=== PATIENT | male | born 1955 | race Caucasian/White ===

== ENCOUNTER 2016-05-27 10:51 | Emergency (ER) | payer MEDICARE, MEDICAID ==
[2016-05-27 14:09] LABS: Hematocrit 44 % (42-52); Hemoglobin 14.8 g/dl (14.0-18.0); Mean Corpuscular HGB Conc 34 g/dl (31-36); Mean Corpuscular Hemoglobin 32 pg (27-31); Mean Corpuscular Volume 96 fL (80-94); Mean Platelet Volume 8 um3 (7.4-10.4); Red Blood Count 4.56 10^6/ul (4.0-5.4); Red Cell Distribution Width 14 % (10.5-15); White Blood Count 5.8 10^3/ul (3.5-10.8)
[2016-05-27 14:21] LABS: Albumin 3.6 g/dL (3.2-5.2); BUN/Creatinine Ratio 14.6 (8-20); C Reactive Protein 42.15 mg/L (< 5.00); Calcium 8.6 mg/dL (8.6-10.3); EGFR African American 71.9 (>60); EGFR Non-African American 55.9 (>60); Globulin 2.7 g/dL (2-4); Total Bilirubin 0.7 mg/dL (0.2-1.0); Total Protein 6.3 g/dL (6.4-8.9)
[2016-05-27 14:25] LABS: Potassium 3.9 mmol/L (3.5-5.0)
[2016-05-27 15:56] LABS: Urine Bilirubin Negative (Negative); Urine Glucose Negative (Negative); Urine Nitrite Negative (Negative)
[2016-05-27] MEDS ORDERED: Iodixanol* (CONTRAST) 320 MG/ML 100 ML SDV IV ONE (16:07)
[2016-05-27] MEDS ORDERED: NS 0.9% 1000 ML* 1,000 ML IV ONE ×2 (16:43→17:14)
--- NOTE | 2016-05-27 17:15 | RAD ---
Indication: Abdominal pain. CT of the abdomen and pelvis was performed after oral and IV contrast administration. Coronal and sagittal reconstructed images were obtained. Administered 131.9 ml of VISAPAQUE 320 mgi/ml was given intravenously according to hospital protocol. The lung bases demonstrate no pleural fluid, nodules or masses. Heart is of normal size without evidence of pericardial effusion. Liver is normal in size. No focal lesions or intrahepatic ductal dilatation is noted. Gallbladder demonstrates no calcified gallstones. No pericholecystic fluid or wall thickening is identified. Pancreas demonstrates no mass effect or ductal dilatation. The spleen is normal in size. No adrenal lesions are noted. The kidneys demonstrate symmetric nephrograms without focal lesions. CT of the pelvis demonstrates urinary bladder to be partially collapsed. The prostate is enlarged. Seminal vesicles are unremarkable. No hernias are identified. No evidence of bowel obstruction is noted. Contrast is noted in the right colon. IMPRESSION: NO ABNORMAL MASSES OR FLUID COLLECTIONS ARE NOTED. NO EVIDENCE OF BOWEL OBSTRUCTION IS NOTED. NO HERNIAS ARE IDENTIFIED.
[2016-05-27 18:46] VITALS: BP 130/82
--- NOTE | 2016-05-30 09:35 | ED ---
Parminder Cutler Matthew, scribed for Nikhil Henry MD on 05/27/16 at 1354 . GI/ HPI - HPI Summary HPI Summary: A 60 y/o male presents to the ED with vomiting, diarrhea, and nausea since 4 days ago. The patient states that he ate sausage on the evening of 05/24/16 and began vomiting at 23:00, which didn't alleviate until 04:30 the next morning. Associated symptoms include diarrhea, chills, and diffuse abdominal pain. The patient denies blood w/ stool, hematemesis, fever, chest pain, SOB, joint pain, rashes, and urinary symptoms. The patient states that he lost 17 pounds since 4 days ago. PMHx includes Hx of Afib, Diabetes, and HTN. The patient takes baby aspirin daily. - History of Current Complaint Chief Complaint: EDNauseaVomitDiarrh Time Seen by Provider: 05/27/16 13:28 Stated Complaint: VOMITING/DIARRHEA Hx Obtained From: Patient Onset/Duration: Started Days Ago - 4 days ago, Atraumatic, Still Present Timing: Constant Severity: Moderate Current Severity: Moderate Pain Intensity: 0 Location of Pain: Diffuse Associated Signs and Symptoms: Positive: Nausea, Vomiting - since resolved, Weight Loss, Diarrhea, Chills. Negative: Blood-Streaked Stool, Black Tarry Stool, Bright Red Blood w/Stool, Blood w/Stool, Fever, Abdominal Pain, Chest Pain - Allergy/Home Medications Allergies/Adverse Reactions: Allergies Allergy/AdvReac Type Severity Reaction Status Date / Time Celecoxib [From Celebrex] Allergy Intermediate Nausea Verified 05/27/16 10:57 [place] Allergy Intermediate Hives Verified 05/27/16 10:57 Naproxen [From Anaprox] Allergy Intermediate Nausea Verified 05/27/16 10:57 [place] Venom Allergy Mild Swelling Verified 05/27/16 10:57 Promethazine [From Phenergan] AdvReac Severe chills Verified 05/27/16 10:57 Rivaroxaban [From Xarelto] AdvReac Severe GI BLEED Verified 05/27/16 10:57 PMH/Surg Hx/FS Hx/Imm Hx Endocrine/Hematology History: Reports: Hx Diabetes - TYPE II- NO MEDICATION FOR Cardiovascular History: Reports: Hx Coronary Artery Disease, Hx Hypercholesterolemia, Hx Hypertension - ON MEDICATION FOR, Other Cardiovascular Problems/Disorders - ATRIAL FIBRILLATION-TIN DIPPER . DR. PARR Respiratory History: Reports: Hx Asthma - PRN INHALER Denies: Hx Chronic Obstructive Pulmonary Disease (COPD) GI History: Reports: Hx Gastroesophageal Reflux Disease - ON MEDICATION FOR Denies: Other GI Disorders History: Reports: Hx Benign Prostatic Hyperplasia, Hx Chronic Renal Failure, Hx Kidney Stones - LEFT 04/2015 Musculoskeletal History: Reports: Hx Arthritis - LOWER BACK, HIPS, HANDS, KNEES Denies: Other Musculoskeletal History Sensory History: Reports: Hx Cataracts - SKY, Hx Contacts or Glasses - GLASSES Denies: Hx Hearing Aid Opthamlomology History: Reports: Hx Cataracts - SKY, Hx Contacts or Glasses - GLASSES Neurological History: Reports: Hx Migraine - A CHILD, Other Neuro Impairments /Disorders - PERIPHERAL NEUROPATHY FEET AND HANDS Psychiatric History: Reports: Hx Anxiety, Hx Depression - HX OF STATES UNDER CONTROL, Hx Bipolar Disorder - Surgical History Surgery Procedure, Year, and Place: R inguinal hernia repair. cataract surgery when patient A YOUNG CHILD. KIDNEY STONE BLASTING[place]04/2015[place] [place] UMBILICAL HERNIA [id number]/2015 Hx Anesthesia Reactions: No Infectious Disease History: No Infectious Disease History: Denies: Traveled Outside the [place] in Last 30 Days - Family History Family History: No FHx of malignant hyperthermia. No FHx of anesthesia reaction - Social History Alcohol Use: None Substance Use Type: Reports: None Smoking Status (MU): Former Smoker Type: Cigarettes Amount Used/How Often: STATES ONLY SMOKED FOR ABOUT 1 MONTH Length of Time of Smoking/Using Tobacco: 1 MONTH Have You Smoked in the Last Year: No Review of Systems Constitutional: Other - weight loss Positive: Chills. Negative: Fever Eyes: Negative ENT: Negative Cardiovascular: Negative Negative: Chest Pain Respiratory: Negative Negative: Shortness Of Breath Positive: Abdominal Pain - mild diffuse , Vomiting, Diarrhea, Nausea Genitourinary: Negative Positive: no symptoms reported Musculoskeletal: Negative Skin: Negative Neurological: Negative Psychological: Normal All Other Systems Reviewed And Are Negative: Yes Physical Exam - Summary Physical Exam Summary: GENERAL: Awake, alert, oriented, no acute distress, very pleasant HEENT: Head is normocephalic, atraumatic, anicteric sclera, pink conjunctiva, mucous membranes moist, no erythema, no discharge, no lesions, neck is supple, trachea is midline, no JVD CARDIAC: Regular rate and rhythm, S1, S2, no rub, no murmur, no gallop, 2+ radial and pedal pulses bilaterally RESPIRATORY: Clear to auscultation bilaterally with no rales, rhonchi, or wheezes, non-tender ABDOMEN: Bowel sounds positive, no bruit, soft, diffuse abdominal tenderness, negative Psoas sign, 2+ femoral pulses, no CVA tenderness EXTREMITIES: No edema, warm, dry, moving all extremities in a grossly normal manner NEUROLOGICAL: Mood is appropriate, moving all extremities in a grossly normal manner Triage Information Reviewed: Yes Vital Signs On Initial Exam: Initial Vitals Temp Pulse Resp BP Pulse Ox 96.5 F 100 16 108/59 99 05/27/16 10:54 05/27/16 10:54 05/27/16 10:54 05/27/16 10:54 05/27/16 10:54 Vital Signs Reviewed: Yes Diagnostics - Vital Signs Vital Signs Temp Pulse Resp BP Pulse Ox 05/27/16 10:54 96.5 F 100 16 108/59 99 - Laboratory Lab Results: Lab Results 05/27/16 05/27/16 05/27/16 Range/Units 13:50 13:50 13:50 WBC 5.8 (3.5-10.8) 10^3/ul RBC 4.56 (4.0-5.4) 10^6/ul Hgb 14.8 (14.0-18.0) g/dl Hct 44 (42-52) % MCV 96 H (80-94) fL MCH 32 H (27-31) pg MCHC 34 (31-36) g/dl RDW 14 (10.5-15) % Plt Count 186 (150-450) 10^3/ul MPV 8 (7.4-10.4) um3 Neut % (Auto) 62.6 (38-83) % Lymph % (Auto) 22.6 L (25-47) % Walton % (Auto) 13.7 H (1-9) % Eos % (Auto) 0.9 (0-6) % Baso % (Auto) 0.2 (0-2) % Absolute Neuts (auto) 3.6 (1.5-7.7) 10^3/ul Absolute Lymphs (auto) 1.3 (1.0-4.8) 10^3/ul Absolute Monos (auto) 0.8 (0-0.8) 10^3/ul Absolute Eos (auto) 0.1 (0-0.6) 10^3/ul Absolute Basos (auto) 0 (0-0.2) 10^3/ul Absolute Nucleated RBC 0.01 10^3/ul Nucleated RBC % 0.1 Sodium 138 (133-145) mmol/L Potassium 3.9 (3.5-5.0) mmol/L Chloride 107 (101-111) mmol/L Carbon Dioxide 25 (22-32) mmol/L Anion Gap 6 (2-11) mmol/L BUN 19 (6-24) mg/dL Creatinine 1.30 H (0.67-1.17) mg/dL Est GFR ( Amer) 71.9 (>60) Est GFR (Non-Af Amer) 55.9 (>60) BUN/Creatinine Ratio 14.6 (8-20) Glucose 114 H (70-100) mg/dL Lactic Acid 1.1 (0.5-2.0) mmol/L Calcium 8.6 (8.6-10.3) mg/dL Total Bilirubin 0.70 (0.2-1.0) mg/dL AST 37 (13-39) U/L ALT 31 (7-52) U/L Alkaline Phosphatase 48 (34-104) U/L C-Reactive Protein 42.15 H (< 5.00) mg/L Total Protein 6.3 L (6.4-8.9) g/dL Albumin 3.6 (3.2-5.2) g/dL Globulin 2.7 (2-4) g/dL Albumin/Globulin Ratio 1.3 (1-3) Lipase 11 (11.0-82.0) U/L Urine Color Urine Appearance Urine pH (5-9) Ur Specific [place] (1.010-1.030) Urine Protein (Negative) Urine Ketones (Negative) Urine Blood (Negative) Urine Nitrate (Negative) Urine Bilirubin (Negative) Urine Urobilinogen (Negative) Ur Leukocyte Esterase (Negative) Urine Glucose (Negative) 05/27/16 Range/Units 15:41 WBC (3.5-10.8) 10^3/ul RBC (4.0-5.4) 10^6/ul Hgb (14.0-18.0) g/dl Hct (42-52) % MCV (80-94) fL MCH (27-31) pg MCHC (31-36) g/dl RDW (10.5-15) % Plt Count (150-450) 10^3/ul MPV (7.4-10.4) um3 Neut % (Auto) (38-83) % Lymph % (Auto) (25-47) % Walton % (Auto) (1-9) % Eos % (Auto) (0-6) % Baso % (Auto) (0-2) % Absolute Neuts (auto) (1.5-7.7) 10^3/ul Absolute Lymphs (auto) (1.0-4.8) 10^3/ul Absolute Monos (auto) (0-0.8) 10^3/ul Absolute Eos (auto) (0-0.6) 10^3/ul Absolute Basos (auto) (0-0.2) 10^3/ul Absolute Nucleated RBC 10^3/ul Nucleated RBC % Sodium (133-145) mmol/L Potassium (3.5-5.0) mmol/L Chloride (101-111) mmol/L Carbon Dioxide (22-32) mmol/L Anion Gap (2-11) mmol/L BUN (6-24) mg/dL Creatinine (0.67-1.17) mg/dL Est GFR ( Amer) (>60) Est GFR (Non-Af Amer) (>60) BUN/Creatinine Ratio (8-20) Glucose (70-100) mg/dL Lactic Acid (0.5-2.0) mmol/L Calcium (8.6-10.3) mg/dL Total Bilirubin (0.2-1.0) mg/dL AST (13-39) U/L ALT (7-52) U/L Alkaline Phosphatase (34-104) U/L C-Reactive Protein (< 5.00) mg/L Total Protein (6.4-8.9) g/dL Albumin (3.2-5.2) g/dL Globulin (2-4) g/dL Albumin/Globulin Ratio (1-3) Lipase (11.0-82.0) U/L Urine Color Yellow Urine Appearance Clear Urine pH 5.0 (5-9) Ur Specific [place] 1.023 (1.010-1.030) Urine Protein Negative (Negative) Urine Ketones Negative (Negative) Urine Blood Negative (Negative) Urine Nitrate Negative (Negative) Urine Bilirubin Negative (Negative) Urine Urobilinogen Negative (Negative) Ur Leukocyte Esterase Negative (Negative) Urine Glucose Negative (Negative) Result Diagrams: 05/27/16 13:50 05/27/16 13:50 Lab Statement: Any lab studies that have been ordered have been reviewed, and results considered in the medical decision making process. - CT A/P CT Interpretation: No Acute Changes - IMPRESSION: NO ABNORMAL MASSES OR FLUID COLLECTIONS ARE NOTED. NO EVIDENCE OF BOWEL OBSTRUCTION IS NOTED. NO HERNIAS ARE IDENTIFIED. CT Interpretation Completed By: Radiologist JULOI C Course/Dx - Diagnoses Provider Diagnoses: Vomiting and diarrhea Discharge - Discharge Plan Condition: Stable Disposition: HOME Prescriptions: Ondansetron ODT TAB* [Zofran Odt TAB*] 4 mg PO Q8H PRN #10 tab.odt PRN Reason: Nausea Patient Education Materials: Acute Diarrhea (ED), Acute Nausea and Vomiting (ED ) Referrals: Kin Steele MD [Primary Care Provider] - 2 Days Additional Instructions: Please follow-up with your primary care physician in two days. PLEASE RETURN TO THE EMERGENCY DEPARTMENT FOR NAUSEA, VOMITING, FEVER, PHOTOPHOBIA, CHEST PAIN, OR IF SYMPTOMS WORSEN. The documentation as recorded by the Parminder willis Matthew accurately reflects the service I personally performed and the decisions made by , Nikhil Henry MD.
== END 2016-05-27 18:45 | disposition home or self-care (01) ==
LOC: ED 10:51
DX: R19.7 Diarrhea, unspecified (principal); R11.2 Nausea with vomiting, unspecified; Z87.891 Personal history of nicotine dependence
CPT/HCPCS: 36415; 74177; 80053; 81003; 83605; 83690; 85025; 86140; 96360; 99282; Q9967

== ENCOUNTER 2017-06-11 07:25 | Emergency (ER) | payer MEDICARE, MEDICAID ==
[2017-06-11 09:20] VITALS: BP 117/79
--- NOTE | 2017-06-11 17:51 | ED ---
Cherry Cutler Edward, scribed for Shen Osborne MD on 06/11/17 at 0747 . Throat Pain/Nasal Congestion - HPI Summary HPI Summary: 61 y/o male presents to the ED c/o sore throat at around 06:30 this morning. Pain is aggravated with swallowing. Associated sx: nasal congestion. Denies fevers. - History of Current Complaint Chief Complaint: EDThroatPain Time Seen by Provider: 06/11/17 07:41 Hx Obtained From: Patient Onset/Duration: Lasting Hours Associated Signs And Symptoms: Positive: Nasal Discharge - Allergies/Home Medications Allergies/Adverse Reactions: Allergies Allergy/AdvReac Type Severity Reaction Status Date / Time Celecoxib [From Celebrex] Allergy Intermediate Nausea Verified 05/27/16 10:57 [place] Allergy Intermediate Hives Verified 05/27/16 10:57 Naproxen [From Anaprox] Allergy Intermediate Nausea Verified 05/27/16 10:57 Bee Venom Allergy Mild Swelling Verified 05/27/16 10:57 Promethazine [From Phenergan] AdvReac Severe chills Verified 05/27/16 10:57 Rivaroxaban [From Xarelto] AdvReac Severe GI BLEED Verified 05/27/16 10:57 PMH/Surg Hx/FS Hx/Imm Hx Previously Healthy: No Endocrine/Hematology History: Reports: Hx Diabetes - TYPE II- NO MEDICATION FOR Cardiovascular History: Reports: Hx Coronary Artery Disease, Hx Hypercholesterolemia, Hx Hypertension - ON MEDICATION FOR, Other Cardiovascular Problems/Disorders - ATRIAL FIBRILLATION-[employer]T SU[employer]ANT . DR. PARR Respiratory History: Reports: Hx Asthma - PRN INHALER Denies: Hx Chronic Obstructive Pulmonary Disease (COPD) GI History: Reports: Hx Gastroesophageal Reflux Disease - ON MEDICATION FOR Denies: Other GI Disorders History: Reports: Hx Benign Prostatic Hyperplasia, Hx Chronic Renal Failure, Hx Kidney Stones - LEFT 04/2015 Musculoskeletal History: Reports: Hx Arthritis - LOWER BACK, HIPS, HANDS, KNEES Denies: Other Musculoskeletal History Sensory History: Reports: Hx Cataracts - SKY, Hx Contacts or Glasses - GLASSES Denies: Hx Hearing Aid Opthamlomology History: Reports: Hx Cataracts - SKY, Hx Contacts or Glasses - GLASSES Neurological History: Reports: Hx Migraine - A CHILD, Other Neuro Impairments /Disorders - PERIPHERAL NEUROPATHY FEET AND HANDS Psychiatric History: Reports: Hx Anxiety, Hx Depression - HX OF STATES UNDER CONTROL, Hx Bipolar Disorder - Surgical History Surgery Procedure, Year, and Place: R inguinal hernia repair. cataract surgery when patient A YOUNG CHILD. KIDNEY STONE BLASTING-04/2015[place] [place] UMBILICAL HERNIA [id number]-07/2015 Hx Anesthesia Reactions: No Infectious Disease History: No Infectious Disease History: Denies: Traveled Outside the [place] in Last 30 Days - Family History Family History: No FHx of malignant hyperthermia. No FHx of anesthesia reaction - Social History Alcohol Use: None Substance Use Type: Reports: None Smoking Status (MU): Former Smoker Type: Cigarettes Amount Used/How Often: STATES ONLY SMOKED FOR ABOUT 1 MONTH Length of Time of Smoking/Using Tobacco: 1 MONTH Have You Smoked in the Last Year: No Review of Systems Constitutional: Negative Negative: Fever Eyes: Negative Positive: Sore Throat, Nasal Discharge - nasal congestion Cardiovascular: Negative Respiratory: Negative Gastrointestinal: Negative Genitourinary: Negative Musculoskeletal: Negative Skin: Negative Neurological: Negative Psychological: Normal All Other Systems Reviewed And Are Negative: Yes Physical Exam - Summary Physical Exam Summary: VITAL SIGNS: Reviewed. GENERAL: Patient is a well-developed and nourished male who is lying comfortable in the stretcher. Patient is not in any acute respiratory distress. HEAD AND FACE: No signs of trauma. No ecchymosis, hematomas or skull depressions. No sinus tenderness. EYES: PERRLA, EOMI x 2, No injected conjunctiva, no nystagmus. EARS: Hearing grossly intact. Ear canals and tympanic membranes are within normal limits. MOUTH: Erythema in the throat without white plaques. NECK: Supple, trachea is midline, no adenopathy, no JVD, no carotid bruit, no c- spine tenderness, neck with full ROM. CHEST: Symmetric, no tenderness at palpation LUNGS: Clear to auscultation bilaterally. No wheezing or crackles. CVS: Regular rate and rhythm, S1 and S2 present, no murmurs or gallops appreciated. ABDOMEN: Soft, non-tender. No signs of distention. No rebound no guarding, and no masses palpated. Bowel sounds are normal. EXTREMITIES: FROM in all major joints, no edema, no cyanosis or clubbing. NEURO: Alert and oriented x 3. No acute neurological deficits. Speech is normal and follows commands. SKIN: Dry and warm Triage Information Reviewed: Yes Vital Signs On Initial Exam: Initial Vitals Temp Pulse Resp BP Pulse Ox 97.8 F 95 16 126/78 97 06/11/17 07:27 06/11/17 07:27 06/11/17 07:27 06/11/17 07:27 06/11/17 07:27 Vital Signs Reviewed: Yes Diagnostics - Vital Signs Vital Signs Temp Pulse Resp BP Pulse Ox 06/11/17 07:27 97.8 F 95 16 126/78 97 - Laboratory Lab Results: Lab Results 06/11/17 06/11/17 Range/Units 08:01 08:13 Influenza A (Rapid) Negative (Negative) Influenza B (Rapid) Negative (Negative) Group A Strep Rapid Negative (Negative) Lab Statement: Any lab studies that have been ordered have been reviewed, and results considered in the medical decision making process. EENT Course/Dx - Course Assessment/Plan: 61 y/o male presents to the ED c/o sore throat at around 06:30 this morning. Pain is aggravated with swallowing. Associated sx: nasal congestion. Denies fevers. Pt is lying comfortable in the stretcher with no acute distress. The pt has no pharyngeal exudates or retropharyngeal absceses. Rapid strep negative; Influenza a and b negative. Therefore I believe the pts symptoms are due to Viral pharyngitis. The pt is swallowing PO without n/v. The pt will be d/c home with f/u with pcp. The pt is hemodyncamically stable, A& Ox3. I discussed all the findings and test results with the patient. Patient was instructed to return to the emergency room immediately if any of the symptoms return or worsens. Plan of care was discussed with the patient and understands and agrees. All questions were answered at patient satisfaction. There were no further complaints or concerns. Lung exam before discharge: CTA B /L. Good air exchange. No wheezing or crackles heard. CVS: S1 and S2 present. No murmurs appreciated. Patient is alert and oriented x 3. Patient is hemodynamically stable. Patient will be discharged home with follow up PCP in the next 2-3 days - Differential Diagnoses Differential Diagnoses: Sinusitis, Tonsilitis, URI/Bronchitis - Diagnoses Provider Diagnoses: Viral pharyngitis Discharge - Discharge Plan Condition: Stable Disposition: HOME Patient Education Materials: Pharyngitis (ED) Referrals: Kin Steele MD [Primary Care Provider] - 4 Days (PLEASE F/U IN 3-5 DAYS NEEDED) Additional Instructions: PLEASE RETURN TO THE ED FOR RETURN OR WORSENING OF SYMPTOMS The documentation as recorded by the Cherry willis Edward accurately reflects the service I personally performed and the decisions made by me, Shen Osborne MD.
== END 2017-06-11 09:19 | disposition home or self-care (01) ==
LOC: ED 07:25
DX: J02.9 Acute pharyngitis, unspecified (principal); F17.210 Nicotine dependence, cigarettes, uncomplicated
CPT/HCPCS: 87502; 87651; 99282

== ENCOUNTER 2017-06-25 17:07 | Emergency (ER) | payer MEDICARE, MEDICAID ==
[2017-06-25] MEDS ORDERED: Ondansetron INJ* 2 MG/ML VIAL IV ONE (17:30)
[2017-06-25] MEDS ORDERED: NS 0.9% 1000 ML* 1,000 ML IV ONE (17:30)
[2017-06-25] MEDS ORDERED: Acetaminophen TAB* 325 MG PO ONE (17:32)
[2017-06-25 18:28] LABS: ABS Basophils 0 10^3/ul (0-0.2); ABS Eosinophils 0.1 10^3/ul (0-0.6); ABS Lymphocytes 0.4 10^3/ul (1.0-4.8); ABS Monocytes 0.9 10^3/ul (0-0.8); ABS Neutrophils 5.6 10^3/ul (1.5-7.7); ABS Nucleated RBC 0 10^3/ul; Eosinophil % 1.1 % (0-6); Hematocrit 40 % (42-52); Hemoglobin 13.8 g/dl (14.0-18.0); Lymphocyte % 5.9 % (25-47); Mean Corpuscular HGB Conc 35 g/dl (31-36); Mean Corpuscular Hemoglobin 32 pg (27-31); Mean Corpuscular Volume 94 fL (80-94); Mean Platelet Volume 7 um3 (7.4-10.4); Nucleated Red Blood Cells % 0; Platelet Count 194 10^3/ul (150-450); Red Blood Count 4.27 10^6/ul (4.0-5.4); Red Cell Distribution Width 14 % (10.5-15)
[2017-06-25 18:32] LABS: Urine Appearance Clear; Urine Blood 2+ (Negative); Urine Color Yellow; Urine Ketones Negative (Negative); Urine Protein Negative (Negative); Urine Specific Gravity 1.016 (1.010-1.030); Urine Urobilinogen Negative (Negative)
[2017-06-25 18:41] LABS: EGFR Non-African American 66.9 (>60)
--- NOTE | 2017-06-25 18:43 | RAD ---
Indication: Cough and fever. Asthma. Comparison: May 27, 2016 CT abdomen Technique: Upright AP 1827 hours Report: Bilateral first costochondral calcifications noted. No focal pulmonary lesion, compelling alveolar consolidation, pleural effusion, pneumothorax. The heart, pulmonary vasculature, and mediastinal contours are unremarkable. IMPRESSION: No evidence for pneumonia. No evidence for acute intrathoracic disease.
[2017-06-25] MEDS ORDERED: Oseltamivir CAP* 75 MG CAP PO ONE (18:47)
[2017-06-25 19:46] VITALS: BP 135/84
--- NOTE | 2017-06-26 07:58 | ED ---
Sonali Cutler Thomas, scribed for Shen Osborne MD on 06/25/17 at 1733 . Influenza-Like Illness - HPI Summary HPI Summary: The patient is a 71 year old male presenting with fever, cough, sore throat, and vomiting for the last two days. The cough has green and yellow productions. He denies body aches, chest pain, abdominal pain, and diarrhea. - History of Current Complaint Chief Complaint: EDGeneral Time Seen by Provider: 06/25/17 17:22 Hx Obtained From: Patient Onset/Duration: Lasting Days - 2, Still Present Severity: Severe Associated Signs & Symptoms: Fever, Cough, Sore Throat, Vomiting Related Hx: Possible Flu/Infectious Exposure - Allergy/Home Medications Allergies/Adverse Reactions: Allergies Allergy/AdvReac Type Severity Reaction Status Date / Time MS Celecoxib [From Celebrex] Allergy Intermediate Nausea Verified 05/27/16 10:57 MS Dunlevy [Dunlevy] Allergy Intermediate Hives Verified 05/27/16 10:57 MS Naproxen [From Anaprox] Allergy Intermediate Nausea Verified 05/27/16 10:57 MS Bee Venom [Bee Venom] Allergy Mild Swelling Verified 05/27/16 10:57 MS Promethazine AdvReac Severe chills Verified 05/27/16 10:57 [From Phenergan] MS Rivaroxaban [From Xarelto] AdvReac Severe GI BLEED Verified 05/27/16 10:57 PMH/Surg Hx/FS Hx/Imm Hx Endocrine/Hematology History: Reports: Hx Diabetes - TYPE II- NO MEDICATION FOR Cardiovascular History: Reports: Hx Coronary Artery Disease, Hx Hypercholesterolemia, Hx Hypertension - ON MEDICATION FOR, Other Cardiovascular Problems/Disorders - 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 DR. PARR Respiratory History: Reports: Hx Asthma - PRN INHALER Denies: Hx Chronic Obstructive Pulmonary Disease (COPD) GI History: Reports: Hx Gastroesophageal Reflux Disease - ON MEDICATION FOR Denies: Other GI Disorders History: Reports: Hx Benign Prostatic Hyperplasia, Hx Chronic Renal Failure, Hx Kidney Stones - LEFT 04/2015 Musculoskeletal History: Reports: Hx Arthritis - LOWER BACK, HIPS, HANDS, KNEES Denies: Other Musculoskeletal History Sensory History: Reports: Hx Cataracts - SKY, Hx Contacts or Glasses - GLASSES Denies: Hx Hearing Aid Opthamlomology History: Reports: Hx Cataracts - SKY, Hx Contacts or Glasses - GLASSES Neurological History: Reports: Hx Migraine - A CHILD, Other Neuro Impairments /Disorders - PERIPHERAL NEUROPATHY FEET AND HANDS Psychiatric History: Reports: Hx Anxiety, Hx Depression - HX OF STATES UNDER CONTROL, Hx Bipolar Disorder - Surgical History Surgery Procedure, Year, and Place: R inguinal hernia repair. cataract surgery when patient A YOUNG CHILD. KIDNEY STONE BLASTING-04/2015-[facility] [place]. UMBILICAL HERNIA [id number]-89/2015 Hx Anesthesia Reactions: No Infectious Disease History: No Infectious Disease History: Denies: Traveled Outside the US in Last 30 Days - Family History Family History: No FHx of malignant hyperthermia. No FHx of anesthesia reaction - Social History Alcohol Use: None Substance Use Type: Reports: None Smoking Status (MU): Former Smoker Type: Cigarettes Amount Used/How Often: STATES ONLY SMOKED FOR ABOUT 1 MONTH Length of Time of Smoking/Using Tobacco: 1 MONTH Have You Smoked in the Last Year: No Review of Systems Positive: Fever Positive: Sore Throat Negative: Chest Pain Positive: Cough Positive: Vomiting. Negative: Abdominal Pain, Diarrhea Negative: Myalgia All Other Systems Reviewed And Are Negative: Yes Physical Exam - Summary Physical Exam Summary: VITAL SIGNS: Reviewed. He is febrile and tachycardic. GENERAL: Patient is a well-developed and nourished male who is lying comfortable in the stretcher. Patient is not in any acute respiratory distress. HEAD AND FACE: No signs of trauma. No ecchymosis, hematomas or skull depressions. No sinus tenderness. EYES: PERRLA, EOMI x 2, No injected conjunctiva, no nystagmus. EARS: Hearing grossly intact. Ear canals and tympanic membranes are within normal limits. MOUTH: Oropharynx within normal limits. NECK: Supple, trachea is midline, no adenopathy, no JVD, no carotid bruit, no c- spine tenderness, neck with full ROM. CHEST: Symmetric, no tenderness at palpation LUNGS: He has some crackles in the bases of the lungs. CVS: Tachycardia, regular rhythm. S1 and S2 present, no murmurs or gallops appreciated. ABDOMEN: Soft, non-tender. No signs of distention. No rebound no guarding, and no masses palpated. Bowel sounds are normal. EXTREMITIES: FROM in all major joints, no edema, no cyanosis or clubbing. NEURO: Alert and oriented x 3. No acute neurological deficits. Speech is normal and follows commands. SKIN: Dry and warm Triage Information Reviewed: Yes Vital Signs On Initial Exam: Initial Vitals Temp Pulse Resp BP Pulse Ox 102.9 F 107 24 161/84 97 06/25/17 17:16 06/25/17 17:16 06/25/17 17:16 06/25/17 17:16 06/25/17 17:16 Vital Signs Reviewed: Yes Diagnostics - Vital Signs Vital Signs Temp Pulse Resp BP Pulse Ox 06/25/17 17:16 102.9 F 107 24 161/84 97 - Laboratory Lab Results: Lab Results 06/25/17 06/25/17 06/25/17 Range/Units 17:50 18:04 18:04 WBC 7.0 (3.5-10.8) 10^3/ul RBC 4.27 (4.0-5.4) 10^6/ul Hgb 13.8 L (14.0-18.0) g/dl Hct 40 L (42-52) % MCV 94 (80-94) fL MCH 32 H (27-31) pg MCHC 35 (31-36) g/dl RDW 14 (10.5-15) % Plt Count 194 (150-450) 10^3/ul MPV 7 L (7.4-10.4) um3 Neut % (Auto) 80.2 (38-83) % Lymph % (Auto) 5.9 L (25-47) % Valley % (Auto) 12.5 H (1-9) % Eos % (Auto) 1.1 (0-6) % Baso % (Auto) 0.3 (0-2) % Absolute Neuts (auto) 5.6 (1.5-7.7) 10^3/ul Absolute Lymphs (auto) 0.4 L (1.0-4.8) 10^3/ul Absolute Monos (auto) 0.9 H (0-0.8) 10^3/ul Absolute Eos (auto) 0.1 (0-0.6) 10^3/ul Absolute Basos (auto) 0 (0-0.2) 10^3/ul Absolute Nucleated RBC 0 10^3/ul Nucleated RBC % 0 Sodium 135 (133-145) mmol/L Potassium 3.5 (3.5-5.0) mmol/L Chloride 101 (101-111) mmol/L Carbon Dioxide 25 (22-32) mmol/L Anion Gap 9 (2-11) mmol/L BUN 15 (6-24) mg/dL Creatinine 1.11 (0.67-1.17) mg/dL Est GFR ( Amer) 86.0 (>60) Est GFR (Non-Af Amer) 66.9 (>60) BUN/Creatinine Ratio 13.5 (8-20) Glucose 143 H (70-100) mg/dL Lactic Acid (0.5-2.0) mmol/L Calcium 8.4 L (8.6-10.3) mg/dL Total Bilirubin 0.50 (0.2-1.0) mg/dL AST 24 (13-39) U/L ALT 19 (7-52) U/L Alkaline Phosphatase 63 (34-104) U/L Total Creatine Kinase 86 (10-223) U/L Troponin I 0.00 (<0.04) ng/mL C-Reactive Protein 21.35 H (< 5.00) mg/L B-Natriuretic Peptide ( - 100) pg/mL Total Protein 6.6 (6.4-8.9) g/dL Albumin 4.0 (3.2-5.2) g/dL Globulin 2.6 (2-4) g/dL Albumin/Globulin Ratio 1.5 (1-3) Urine Color Urine Appearance Urine pH (5-9) Ur Specific [place] (1.010-1.030) Urine Protein (Negative) Urine Ketones (Negative) Urine Blood (Negative) Urine Nitrate (Negative) Urine Bilirubin (Negative) Urine Urobilinogen (Negative) Ur Leukocyte Esterase (Negative) Urine WBC (Auto) (Absent) Urine RBC (Auto) (Absent) Ur Squamous Epith Cells (Absent) Urine Bacteria (Absent) Urine Glucose (Negative) Influenza A (Rapid) Positive H (Negative) Influenza B (Rapid) Negative (Negative) 06/25/17 06/25/17 06/25/17 Range/Units 18:04 18:04 18:15 WBC (3.5-10.8) 10^3/ul RBC (4.0-5.4) 10^6/ul Hgb (14.0-18.0) g/dl Hct (42-52) % MCV (80-94) fL MCH (27-31) pg MCHC (31-36) g/dl RDW (10.5-15) % Plt Count (150-450) 10^3/ul MPV (7.4-10.4) um3 Neut % (Auto) (38-83) % Lymph % (Auto) (25-47) % Valley % (Auto) (1-9) % Eos % (Auto) (0-6) % Baso % (Auto) (0-2) % Absolute Neuts (auto) (1.5-7.7) 10^3/ul Absolute Lymphs (auto) (1.0-4.8) 10^3/ul Absolute Monos (auto) (0-0.8) 10^3/ul Absolute Eos (auto) (0-0.6) 10^3/ul Absolute Basos (auto) (0-0.2) 10^3/ul Absolute Nucleated RBC 10^3/ul Nucleated RBC % Sodium (133-145) mmol/L Potassium (3.5-5.0) mmol/L Chloride (101-111) mmol/L Carbon Dioxide (22-32) mmol/L Anion Gap (2-11) mmol/L BUN (6-24) mg/dL Creatinine (0.67-1.17) mg/dL Est GFR ( Amer) (>60) Est GFR (Non-Af Amer) (>60) BUN/Creatinine Ratio (8-20) Glucose (70-100) mg/dL Lactic Acid 2.5 H* (0.5-2.0) mmol/L Calcium (8.6-10.3) mg/dL Total Bilirubin (0.2-1.0) mg/dL AST (13-39) U/L ALT (7-52) U/L Alkaline Phosphatase (34-104) U/L Total Creatine Kinase (10-223) U/L Troponin I (<0.04) ng/mL C-Reactive Protein (< 5.00) mg/L B-Natriuretic Peptide 72 ( - 100) pg/mL Total Protein (6.4-8.9) g/dL Albumin (3.2-5.2) g/dL Globulin (2-4) g/dL Albumin/Globulin Ratio (1-3) Urine Color Yellow Urine Appearance Clear Urine pH 5.0 (5-9) Ur Specific [place] 1.016 (1.010-1.030) Urine Protein Negative (Negative) Urine Ketones Negative (Negative) Urine Blood 2+ H (Negative) Urine Nitrate Negative (Negative) Urine Bilirubin Negative (Negative) Urine Urobilinogen Negative (Negative) Ur Leukocyte Esterase Negative (Negative) Urine WBC (Auto) Trace(0-5/hpf) (Absent) Urine RBC (Auto) 1+(3-5/hpf) H (Absent) Ur Squamous Epith Cells Present H (Absent) Urine Bacteria Absent (Absent) Urine Glucose Negative (Negative) Influenza A (Rapid) (Negative) Influenza B (Rapid) (Negative) Result Diagrams: 06/25/17 18:04 06/25/17 18:04 Lab Statement: Any lab studies that have been ordered have been reviewed, and results considered in the medical decision making process. - Radiology CXR Xray Interpretation: No Acute Changes - No evidence for pneumonia. No evidence for acute intrathoracic disease. Dr. Osborne has reviewed this report. Radiology Interpretation Completed By: Radiologist - EKG 17:38 Cardiac Rate: Tachycardia EKG Rhythm: Atrial Fibrillation - at 101 BPM EKG Interpretation: Similar to previous EKG on 05/30/14. Flu Symptom Course/Dx - Course Assessment/Plan: The patient is a 71 year old male presenting with fever, cough , sore throat, and vomiting for the last two days. The cough has green and yellow productions. He denies body aches, chest pain, abdominal pain, and diarrhea. The test results are without significant abnormalities except a positive influenza. Initially, the patient was tachycardic and febrile, for which he was given IV fluids and Tylenol. The patient was also given Tamiflu. At this point, the patients heart rate has decreased to 92 BPM and blood pressure has decreased to 125/72. The patient is feeling better; therefore he will be discharged home to follow up with primary care. The patient was given instructions to return to the emergency department if symptoms worsen. The patient is hemodynamically stable and alert and oriented x3. - Diagnoses Differential Diagnosis/HQI/PQRI: Positive: Bronchitis, Influenza, Pneumonia, Upper Respiratory Infection Provider Diagnoses: Influenza Discharge - Discharge Plan Condition: Stable Disposition: HOME Prescriptions: Oseltamivir CAP* [Tamiflu CAP*] 75 mg PO BID #10 cap Patient Education Materials: Influenza (ED) Referrals: Kin Steele MD [Primary Care Provider] - 3 Days Additional Instructions: Follow up with your primary care provider in three days. Return to the emergency department for any new or worsening symptoms. The documentation as recorded by the Sonali willis Thomas accurately reflects the service I personally performed and the decisions made by me, Shen Osborne MD.
== END 2017-06-25 19:47 | disposition home or self-care (01) ==
LOC: ED 17:07
DX: J11.1 Influenza due to unidentified influenza virus with other respiratory manifestations (principal); R50.9 Fever, unspecified; R05 Cough; R11.10 Vomiting, unspecified; I25.10 Atherosclerotic heart disease of native coronary artery without angina pectoris; Z87.19 Personal history of other diseases of the digestive system; Z86.79 Personal history of other diseases of the circulatory system; R07.9 Chest pain, unspecified; Z87.891 Personal history of nicotine dependence
CPT/HCPCS: 36415; 71045; 80053; 81003; 81015; 82550; 83605; 83880; 84484; 85025; 86140; 87040; 87502; 93005; 96374; 96375; 99283; A9270-GY; J2405

== ENCOUNTER 2017-07-16 08:41 | Emergency (ER) | payer MEDICARE, MEDICAID ==
[2017-07-16 08:48] VITALS: BP 122/79
--- NOTE | 2017-07-16 10:06 | RAD ---
HISTORY: Right knee pain injury COMPARISONS: May 10, 2012 VIEWS: 2, Frontal and lateral views of the left knee FINDINGS: BONE DENSITY: Normal. BONES: There is no displaced fracture. JOINTS: There is mild to moderate tricompartmental osteoarthritis.There is no suprapatellar joint effusion or lipohemarthrosis. ALIGNMENT: There is no dislocation. SOFT TISSUES: Unremarkable. OTHER FINDINGS: None. IMPRESSION: NO ACUTE OSSEOUS INJURY. IF SYMPTOMS PERSIST, RECOMMEND REPEAT IMAGING.
--- NOTE | 2017-07-16 10:14 | ED ---
Lower Extremity - HPI Summary HPI Summary: 61 male presents to ED with complaints of right knee pain that began a week ago and has been worsening over the past few days. States knee appears swollen and pain is in the front/side of his knee mainly. Denies any rash, bruising or recent trauma/injury. No other complaints. Pain worsens when ambulating and bearing weight however he is able. Takes Vicodin and muscle relaxer for his back however it has not helped his pain. Took 2 this morning without relief. No history or DVT no prolonged bed rest or long distance travel. No other complaints. PMHx includes a fib, DM and HTN. Takes baby aspirin daily. No recent tick bite, no rash or fever/chills. No other joint aches. - History of Current Complaint Chief Complaint: EDExtremityLower Stated Complaint: RT KNEE PAIN Time Seen by Provider: 07/16/17 08:52 Hx Obtained From: Patient Mechanism Of Injury: Other - none Onset of Pain: Days Onset/Duration: Weeks - 1 Severity Initially: Moderate Severity Currently: Severe Pain Intensity: 10 Pain Scale Used: 0-10 Numeric Timing: Constant Location: Is Discrete @ - right knee Associated Signs And Symptoms: Positive: Swelling, Knee Pain - right Aggravating Factor(s): Movement, Weight Bearing Alleviating Factor(s): Rest Able to Bear Weight: Yes - Allergies/Home Medications Allergies/Adverse Reactions: Allergies Allergy/AdvReac Type Severity Reaction Status Date / Time bee venom protein (honey bee) Allergy Swelling Verified 07/16/17 09:57 celecoxib Allergy Nausea Verified 07/16/17 09:57 lithium Allergy Hives Verified 07/16/17 09:57 promethazine Allergy See Comment Verified 07/16/17 09:57 rivaroxaban [From Xarelto] Allergy See Comment Verified 07/16/17 09:58 PMH/Surg Hx/FS Hx/Imm Hx Endocrine/Hematology History: Reports: Hx Diabetes - TYPE II- NO MEDICATION FOR Cardiovascular History: Reports: Hx Coronary Artery Disease, Hx Hypercholesterolemia, Hx Hypertension - ON MEDICATION FOR, Other Cardiovascular Problems/Disorders - 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 DR. PARR Respiratory History: Reports: Hx Asthma - PRN INHALER Denies: Hx Chronic Obstructive Pulmonary Disease (COPD) GI History: Reports: Hx Gastroesophageal Reflux Disease - ON MEDICATION FOR Denies: Other GI Disorders History: Reports: Hx Benign Prostatic Hyperplasia, Hx Chronic Renal Failure, Hx Kidney Stones - LEFT 04/2015 Musculoskeletal History: Reports: Hx Arthritis - LOWER BACK, HIPS, HANDS, KNEES Denies: Other Musculoskeletal History Sensory History: Reports: Hx Cataracts - SKY, Hx Contacts or Glasses - GLASSES Denies: Hx Hearing Aid Opthamlomology History: Reports: Hx Cataracts - SKY, Hx Contacts or Glasses - GLASSES Neurological History: Reports: Hx Migraine - A CHILD, Other Neuro Impairments /Disorders - PERIPHERAL NEUROPATHY FEET AND HANDS Psychiatric History: Reports: Hx Anxiety, Hx Depression - HX OF STATES UNDER CONTROL, Hx Bipolar Disorder - Surgical History Surgery Procedure, Year, and Place: R inguinal hernia repair. cataract surgery when patient A YOUNG CHILD. KIDNEY STONE BLASTING-04/2015-[facility] – [place]. UMBILICAL HERNIA [id number]-ERY-[id number]/2015 Hx Anesthesia Reactions: No - Immunization History Immunizations Up to Date: Yes Infectious Disease History: No Infectious Disease History: Denies: Traveled Outside the [place] in Last 30 Days - Family History Known Family History: Positive: None Family History: No FHx of malignant hyperthermia. No FHx of anesthesia reaction - Social History Alcohol Use: None Substance Use Type: Reports: None Smoking Status (MU): Former Smoker Type: Cigarettes Amount Used/How Often: STATES ONLY SMOKED FOR ABOUT 1 MONTH Length of Time of Smoking/Using Tobacco: 1 MONTH Have You Smoked in the Last Year: No Review of Systems Constitutional: Negative Respiratory: Negative Gastrointestinal: Negative Positive: Arthralgia, Myalgia - right knee Skin: Negative Neurological: Negative All Other Systems Reviewed And Are Negative: Yes Physical Exam Triage Information Reviewed: Yes Vital Signs On Initial Exam: Initial Vitals Temp Pulse Resp BP Pulse Ox 98.0 F 85 18 122/79 97 07/16/17 08:43 07/16/17 08:43 07/16/17 08:43 07/16/17 08:43 07/16/17 08:43 Vital Signs Reviewed: Yes Appearance: Positive: Well-Appearing, No Pain Distress, Well-Nourished Skin: Positive: Warm, Skin Color Reflects Adequate Perfusion, Dry. Negative: Cold, Numb, Cyanosis @, Pale, Erythema @ Head/Face: Positive: Normal Head/Face Inspection Respiratory/Lung Sounds: Positive: Clear to Auscultation, Breath Sounds Present. Negative: Rales, Rhonchi, Wheezes Cardiovascular: Positive: Normal, RRR, Pulses are Symmetrical in both Upper and Lower Extremities - 2+ pedal b/l. Negative: Murmur, Rub Musculoskeletal: Positive: Pain @ - TTP right anterior/both sides of knee, Nadya Sign Right, Other - mild edema noted at right knee/calf minimally. no crepitus step off or obvious deformity, no signs of traua, no rash or ecchymosis. Negative: Limited @, Interruption @, Abnormal @, Edema Left, Edema Right Neurological: Positive: Normal, Sensory/Motor Intact, Alert, Oriented to Person Place, Time, CN Intact II-III, Reflexes Intact, NV Bundle Intact Distally, Normal Gait - with pain right knee Diagnostics - Vital Signs Vital Signs Temp Pulse Resp BP Pulse Ox 07/16/17 08:43 98.0 F 85 18 122/79 97 - Laboratory Lab Statement: Any lab studies that have been ordered have been reviewed, and results considered in the medical decision making process. - Radiology right knee Xray Interpretation: No Acute Changes - no acuate osseous injury. if symptoms persist, recommend repeat imaging. moderate amount of osteoarthritis noted Radiology Interpretation Completed By: Radiologist - Ultrasound No standard instances Ultrasound Interpretation: No Acute Changes - NO RIGHT LOWER EXTREMITY DEEP VEIN THROMBOSIS Ultrasound Interpretation Completed By: Radiologist Re-Evaluation - Re-Evaluation First Eval Re-Evaluation Time: 11:30 Change: Unchanged - updated on results. agrees and understands. no further action required Lower Extremity Course/Dx - Course Course Of Treatment: xray and ultrasound obtained and negative. appears to be suffering from osteoarthritis. unable to take daily NSAIDs, on baby aspirin and has history of GI bleed years ago. recommend RICE. given knee immobilzer and hailee wrap. Educated on exercises and things to avoid. Follow up [facility] PCP for better management especially if symptoms continue/worsen or new symptoms develop. Aware of worsening signs and symptoms to watch out for. No other concerns at this time. continue already prescribed pain medication for back arthritis, for knee as well. - Diagnoses Differential Diagnosis/HQI/PQRI: Positive: Arthritis, Sprain, Strain, Tendonitis Provider Diagnoses: Osteoarthritis of right knee, Knee pain, right Discharge - Discharge Plan Condition: Good Disposition: HOME Patient Education Materials: Knee Pain (ED), Osteoarthritis (ED) Referrals: Kin Steele MD [Primary Care Provider] - Jaxon Rocha MD [Medical Doctor] - Additional Instructions: Wear hailee wrap and knee immobilizer to help with support and compression for swelling. Avoid over use. Elevate. Recommend ice/heat. Topical anesthetic agents. Follow up with PCP. Prescribed pain medication to help with pain. Any new or worsening symptoms, as we discussed, please return.
[2017-07-16] MEDS ORDERED: Ibuprofen TAB* 400 MG PO ONE (10:24)
--- NOTE | 2017-07-16 11:25 | RAD ---
HISTORY: Right lower extremity swelling and pain COMPARISONS: None relevant TECHNIQUE: Multiple transverse and longitudinal ultrasound images were obtained of the right lower extremity from the level of the common femoral vein inferiorly through to the infrapopliteal veins using grayscale, color Doppler, and spectral Doppler imaging with and without compression and with augmentation. Comparison images were obtained of the contralateral common femoral vein. FINDINGS: VEINS: The venous system of the right lower extremity is compressible throughout its course, with normal flow on color Doppler imaging and normal response to augmentation on spectral Doppler imaging. SOFT TISSUES: Unremarkable. OTHER FINDINGS: None. IMPRESSION: NO RIGHT LOWER EXTREMITY DEEP VEIN THROMBOSIS
== END 2017-07-16 12:09 | disposition home or self-care (01) ==
LOC: ED 08:41
DX: M17.11 Unilateral primary osteoarthritis, right knee (principal); M79.89 Other specified soft tissue disorders; Z88.8 Allergy status to other drugs, medicaments and biological substances; Z87.891 Personal history of nicotine dependence
CPT/HCPCS: 99282; A9270-GY

== ENCOUNTER 2017-08-30 22:34 | Emergency (ER) | payer MEDICARE, MEDICAID ==
[2017-08-30] MEDS ORDERED: NS 0.9% 1000 ML* 1,000 ML IV ONE (23:28)
[2017-08-30] MEDS ORDERED: Ondansetron INJ* 2 MG/ML VIAL IV ONE (23:28)
[2017-08-30] MEDS ORDERED: Pantoprazole IV* 40 MG IV ONE (23:28)
[2017-08-30] MEDS ORDERED: Acetaminophen TAB* 325 MG PO ONE (23:29)
[2017-08-31 00:20] LABS: ABS Basophils 0 10^3/ul (0-0.2); ABS Eosinophils 0.2 10^3/ul (0-0.6); ABS Lymphocytes 0.5 10^3/ul (1.0-4.8); ABS Monocytes 0.8 10^3/ul (0-0.8); ABS Neutrophils 4.3 10^3/ul (1.5-7.7); ABS Nucleated RBC 0 10^3/ul; Eosinophil % 3.2 % (0-6); Hematocrit 40 % (42-52); Hemoglobin 13.8 g/dl (14.0-18.0); Lymphocyte % 9.2 % (25-47); Mean Corpuscular HGB Conc 35 g/dl (31-36); Mean Corpuscular Hemoglobin 33 pg (27-31); Mean Corpuscular Volume 95 fL (80-94); Mean Platelet Volume 7.2 um3 (7.4-10.4); Nucleated Red Blood Cells % 0.2; Platelet Count 182 10^3/ul (150-450); Red Cell Distribution Width 15 % (10.5-15); White Blood Count 5.8 10^3/ul (3.5-10.8)
[2017-08-31 01:13] LABS: Urine Appearance Clear; Urine Blood 1+ (Negative); Urine Color Yellow; Urine Ketones Negative (Negative); Urine Protein Negative (Negative); Urine Specific Gravity 1.018 (1.010-1.030); Urine Urobilinogen Negative (Negative)
--- NOTE | 2017-08-31 01:49 | ED ---
Sonali Cutler Thomas, scribed for Donta Herrera MD on 08/30/17 at 2318 . Complex/Multi-Sys Presentation - HPI Summary HPI Summary: The patient is a 61 year old male brought in by ambulance with a cough, fever, nausea, vomiting, and chest congestion. He treated the symptoms with cough syrup prior to arrival. He has a pruritic rash to the right leg for the last few days. The patient denies abdominal pain, shortness of breath, and diarrhea. - History Of Current Complaint Chief Complaint: EDShortnessOfBreath Hx Obtained From: Patient Onset/Duration: Still Present Timing: Constant Severity Initially: Moderate Aggravating Factor(s): None Alleviating Factor(s): None Associated Signs And Symptoms: Positive: Other - Cough, fever, nausea, vomiting , rash, and chest congestion; NEGATIVE: abdominal pain, shortness of breath, and diarrhea. - Allergies/Home Medications Allergies/Adverse Reactions: Allergies Allergy/AdvReac Type Severity Reaction Status Date / Time bee venom protein (honey bee) Allergy Swelling Verified 07/16/17 09:57 celecoxib Allergy Nausea Verified 07/16/17 09:57 lithium Allergy Hives Verified 07/16/17 09:57 promethazine Allergy See Comment Verified 07/16/17 09:57 rivaroxaban [From Xarelto] Allergy See Comment Verified 07/16/17 09:58 Home Medications: Home Medications Triamcinolone 0.1% CREAM (NF) [Kenalog 0.1% Cream (NF)] 1 applic TOPICAL DAILY PRN 08/30/17 [History Confirmed 08/30/17] PMH/Surg Hx/FS Hx/Imm Hx Endocrine/Hematology History: Reports: Hx Diabetes - TYPE II- NO MEDICATION FOR Cardiovascular History: Reports: Hx Atrial Fibrillation, Hx Coronary Artery Disease, Hx Hypercholesterolemia, Hx Hypertension - ON MEDICATION FOR, Other Cardiovascular Problems/Disorders - [employer]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 Respiratory History: Reports: Hx Asthma - PRN INHALER Denies: Hx Chronic Obstructive Pulmonary Disease (COPD) GI History: Reports: Hx Gastroesophageal Reflux Disease - ON MEDICATION FOR Denies: Other GI Disorders History: Reports: Hx Benign Prostatic Hyperplasia, Hx Chronic Renal Failure, Hx Kidney Stones - LEFT 04/2015 Musculoskeletal History: Reports: Hx Arthritis - LOWER BACK, HIPS, HANDS, KNEES Denies: Other Musculoskeletal History Sensory History: Reports: Hx Cataracts - SKY, Hx Contacts or Glasses - GLASSES Denies: Hx Hearing Aid Opthamlomology History: Reports: Hx Cataracts - SKY, Hx Contacts or Glasses - GLASSES Neurological History: Reports: Hx Migraine - A CHILD, Other Neuro Impairments /Disorders - PERIPHERAL NEUROPATHY FEET AND HANDS Psychiatric History: Reports: Hx Anxiety, Hx Depression - HX OF STATES UNDER CONTROL, Hx Bipolar Disorder - Surgical History Surgery Procedure, Year, and Place: R inguinal hernia repair. cataract surgery when patient A YOUNG CHILD. KIDNEY STONE BLASTING-04/2015-[facility] [place]. UMBILICAL HERNIA [id number] Hx Anesthesia Reactions: No Infectious Disease History: No Infectious Disease History: Denies: Traveled Outside the [place] in Last 30 Days - Family History Family History: No FHx of malignant hyperthermia. No FHx of anesthesia reaction - Social History Alcohol Use: None Substance Use Type: Reports: None Smoking Status (MU): Former Smoker Type: Cigarettes Amount Used/How Often: STATES ONLY SMOKED FOR ABOUT 1 MONTH Length of Time of Smoking/Using Tobacco: 1 MONTH Have You Smoked in the Last Year: No Review of Systems Positive: Fever Positive: Cough, Other - Chest congestion. Negative: Shortness Of Breath Positive: Vomiting, Nausea. Negative: Abdominal Pain, Diarrhea Positive: Rash All Other Systems Reviewed And Are Negative: Yes Physical Exam - Summary Physical Exam Summary: VITAL SIGNS: Reviewed. GENERAL: Patient is a well-developed and nourished male who is lying comfortable in the stretcher. Patient is not in any acute respiratory distress. HEAD AND FACE: No signs of trauma. There is nasal congestion. No ecchymosis, hematomas or skull depressions. No sinus tenderness. EYES: PERRLA, EOMI x 2, No injected conjunctiva, no nystagmus. EARS: Hearing grossly intact. Ear canals and tympanic membranes are within normal limits. MOUTH: Oropharynx within normal limits. NECK: Supple, trachea is midline, no adenopathy, no JVD, no carotid bruit, no c- spine tenderness, neck with full ROM. CHEST: Symmetric, no tenderness at palpation LUNGS: Clear to auscultation bilaterally. No wheezing or crackles. CVS: Irregular heart rate. S1 and S2 present, no murmurs or gallops appreciated. ABDOMEN: Soft, non-tender. There is abdominal distention. No rebound no guarding , and no masses palpated. Bowel sounds are normal. EXTREMITIES: There is a rash over the right leg that has been there for a few days. FROM in all major joints, no edema, no cyanosis or clubbing. NEURO: Alert and oriented x 3. No acute neurological deficits. Speech is normal and follows commands. SKIN: Dry and warm Triage Information Reviewed: Yes Vital Signs On Initial Exam: Initial Vitals Temp Pulse Resp BP Pulse Ox 100.9 F 102 20 141/95 93 08/30/17 22:35 08/30/17 22:35 08/30/17 22:35 08/30/17 22:35 08/30/17 22:35 Vital Signs Reviewed: Yes Diagnostics - Vital Signs Vital Signs Temp Pulse Resp BP Pulse Ox 08/30/17 23:00 97 19 93 08/30/17 22:59 100 25 140/91 93 08/30/17 22:54 94 16 145/95 92 08/30/17 22:49 100 20 150/88 93 08/30/17 22:44 106 23 125/89 93 08/30/17 22:42 20 08/30/17 22:40 106 16 94 08/30/17 22:39 114 19 141/95 94 08/30/17 22:35 100.9 F 102 20 141/95 93 - Laboratory Result Diagrams: 08/31/17 00:05 08/31/17 00:05 Lab Statement: Any lab studies that have been ordered have been reviewed, and results considered in the medical decision making process. - Radiology CXR Xray Interpretation: No Acute Changes - No acute process, pending official report. Radiology Interpretation Completed By: ED Physician Re-Evaluation - Re-Evaluation First Eval Re-Evaluation Time: 01:35 Comment: Results discussed. Patient will be discharged. Complex Multi-Symp Course/Dx Assessment/Plan: The patient is a 61 year old male brought in by ambulance with a cough, fever, nausea, vomiting, and chest congestion. In the ED course the patient was given IV fluids, Zofran, Protonix, and acetaminophen. Bloodwork was obtained. CXR is negative. Influenza A and B are negative. The patient is diagnosed with flu-like illness. The patient will be discharged home to follow up with primary care. - Diagnoses Provider Diagnoses: Flu-like symptoms Discharge - Sign-Out/Discharge Documenting (check all that apply): Discharge - Discharge Plan Condition: Stable Disposition: HOME Patient Education Materials: Viral Syndrome (ED) Referrals: Kin Steele MD [Primary Care Provider] - 3 Days Additional Instructions: Follow up with your primary care physician in two days. Return to the emergency department for any new or worsening symptoms. The documentation as recorded by the Sonali willis Thomas accurately reflects the service I personally performed and the decisions made by me, Donta Herrera MD.
[2017-08-31 01:54] VITALS: BP 137/92
--- NOTE | 2017-08-31 07:47 | RAD ---
HISTORY: Cough COMPARISONS: June 25, 2017 VIEWS: 1: frontal portable view of the chest at 11:40 PM FINDINGS: LINES AND TUBES: None. CARDIOMEDIASTINAL SILHOUETTE: The cardiomediastinal silhouette is stable. PLEURA: The costophrenic angles are sharp. No pleural abnormalities are noted. LUNG PARENCHYMA: The lungs are clear. ABDOMEN: The upper abdomen is clear. There is no subphrenic gas. BONES AND SOFT TISSUES: No bone or soft tissue abnormalities are noted. IMPRESSION: NO ACTIVE CARDIOPULMONARY DISEASE.
== END 2017-08-31 01:57 | disposition home or self-care (01) ==
LOC: ED 22:34
DX: J11.1 Influenza due to unidentified influenza virus with other respiratory manifestations (principal); R05 Cough; R50.9 Fever, unspecified; R11.2 Nausea with vomiting, unspecified; R21 Rash and other nonspecific skin eruption; Z87.891 Personal history of nicotine dependence; R09.89 Other specified symptoms and signs involving the circulatory and respiratory systems
CPT/HCPCS: 36415; 71045; 80053; 81003; 81015; 82150; 83605; 83690; 85025; 86140; 87040; 87086; 87502; 99284; A9270-GY; J2405

== ENCOUNTER 2018-03-08 21:19 | Emergency (ER) | payer MEDICARE, MEDICAID ==
[2018-03-08] MEDS ORDERED: Indomethacin CAP* 25 MG CAP PO ONE (22:00)
--- NOTE | 2018-03-08 22:03 | ED ---
Lower Extremity - HPI Summary HPI Summary: This patient is a 62 year old M presenting to [facility] with a chief complaint of right great toe pain that began this evening. The patient rates the pain 2/10 in severity. Patient reports erythema, swelling, and warmth at the toe. Patient denies fever, ABD pain, and hx of ulcers. He has no other complaints at this time. Hx DM and arthritis. He denies any kidney issues in the past. - History of Current Complaint Chief Complaint: EDExtremityLower Stated Complaint: RT FOOT ISSUE Time Seen by Provider: 03/08/18 21:55 Hx Obtained From: Patient Mechanism Of Injury: Other - none Onset of Pain: Immediate Onset/Duration: Still Present Severity Initially: Mild Severity Currently: Mild Pain Intensity: 2 Pain Scale Used: 0-10 Numeric Timing: Constant Location: Is Discrete @ - at right great toe Associated Signs And Symptoms: Positive: Negative - fever Able to Bear Weight: Yes - Allergies/Home Medications Allergies/Adverse Reactions: Allergies Allergy/AdvReac Type Severity Reaction Status Date / Time bee venom protein (honey bee) Allergy Swelling Verified 03/08/18 21:32 celecoxib Allergy Nausea Verified 03/08/18 21:32 lithium Allergy Hives Verified 03/08/18 21:32 promethazine Allergy See Comment Verified 03/08/18 21:32 rivaroxaban [From Xarelto] Allergy See Comment Verified 03/08/18 21:32 PMH/Surg Hx/FS Hx/Imm Hx Endocrine/Hematology History: Reports: Hx Diabetes - TYPE II- NO MEDICATION FOR Cardiovascular History: Reports: Hx Atrial Fibrillation, Hx Coronary Artery Disease, Hx Hypercholesterolemia, Hx Hypertension - ON MEDICATION FOR, Other Cardiovascular Problems/Disorders - [employer]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 Respiratory History: Reports: Hx Asthma - PRN INHALER Denies: Hx Chronic Obstructive Pulmonary Disease (COPD) GI History: Reports: Hx Gastroesophageal Reflux Disease - ON MEDICATION FOR Denies: Other GI Disorders History: Reports: Hx Benign Prostatic Hyperplasia, Hx Chronic Renal Failure, Hx Kidney Stones - LEFT 04/2015 Musculoskeletal History: Reports: Hx Arthritis - LOWER BACK, HIPS, HANDS, KNEES Denies: Other Musculoskeletal History Sensory History: Reports: Hx Cataracts - SKY, Hx Contacts or Glasses - GLASSES Denies: Hx Hearing Aid Opthamlomology History: Reports: Hx Cataracts - SKY, Hx Contacts or Glasses - GLASSES Neurological History: Reports: Hx Migraine - A CHILD, Other Neuro Impairments /Disorders - PERIPHERAL NEUROPATHY FEET AND HANDS Psychiatric History: Reports: Hx Anxiety, Hx Depression - HX OF STATES UNDER CONTROL, Hx Bipolar Disorder - Surgical History Surgery Procedure, Year, and Place: R inguinal hernia repair. cataract surgery when patient A YOUNG CHILD. KIDNEY STONE BLASTING-04/2015-[facility] [place]. UMBILICAL HERNIA [id number]/2015 Hx Anesthesia Reactions: No Infectious Disease History: No Infectious Disease History: Denies: Traveled Outside the US in Last 30 Days - Family History Known Family History: Positive: Diabetes Negative: Renal Disease Family History: No FHx of malignant hyperthermia. No FHx of anesthesia reaction - Social History Alcohol Use: None Substance Use Type: Reports: None Smoking Status (MU): Former Smoker Type: Cigarettes Amount Used/How Often: STATES ONLY SMOKED FOR ABOUT 1 MONTH Length of Time of Smoking/Using Tobacco: 1 MONTH Have You Smoked in the Last Year: No Review of Systems Negative: Fever Negative: Abdominal Pain Positive: Other - right great toe swelling, pain, and warmth. All Other Systems Reviewed And Are Negative: Yes Physical Exam - Summary Physical Exam Summary: Appearance: Well-appearing, Well-nourished, lying in bed comfortable Skin: Warm, dry, no obvious rash Eyes: sclera anicteric, no conjunctival pallor ENT: mucous membranes moist Neck: deferred Respiratory: No signs of respiratory distress Cardiovascular: Appears well perfused, pulses are nml Abdomen: deferred Musculoskeletal: Moving all 4 extremities without obvious discomfort. The right great toe is swollen at IP joint, there is erythema and marked pain with passive ROM Neurological: Awake and alert, mentation is normal, speech is fluent and appropriate Psychiatric: affect is normal, does not appear anxious or depressed Triage Information Reviewed: Yes Vital Signs On Initial Exam: Initial Vitals Temp Pulse Resp BP Pulse Ox 97.9 F 87 20 123/95 97 03/08/18 21:27 03/08/18 21:27 03/08/18 21:27 03/08/18 21:27 03/08/18 21:27 Vital Signs Reviewed: Yes Diagnostics - Vital Signs Vital Signs Temp Pulse Resp BP Pulse Ox 03/08/18 21:27 97.9 F 87 20 123/95 97 - Laboratory Result Diagrams: 03/08/18 22:15 03/08/18 22:15 Lab Statement: Any lab studies that have been ordered have been reviewed, and results considered in the medical decision making process. Lower Extremity Course/Dx - Course Assessment/Plan: This patient is a 62 year old M presenting to [facility] with a chief complaint of right great toe pain that began this evening. The patient rates the pain 2/10 in severity. Patient reports erythema, swelling, and warmth at the toe. Patient denies fever, ABD pain, and hx of ulcers. He has no other complaints at this time. Hx DM and arthritis. He denies any kidney issues in the past. Bloodwork obtained. In the ED course the patient was given Indocin. Dx gout. Patient will be discharged with prescription for Indocin and follow up from Dr. Steele. The patient is agreeable with this plan. - Diagnoses Provider Diagnoses: Gout Discharge - Sign-Out/Discharge Documenting (check all that apply): Patient Departure - Discharge Plan Condition: Good Disposition: HOME Prescriptions: Indomethacin CAP* [Indocin CAP*] 25 mg PO TID PRN #20 cap PRN Reason: Pain Patient Education Materials: Gout (ED) Referrals: Kin Steele MD [Primary Care Provider] - 3 Days (if not better) - Attestation Statements Document Initiated by Scribe: Yes Documenting Scribe: Bashir Briggs Provider For Whom Scribe is Documenting (Include Credential): Calixto Simons MD Scribe Attestation: Bashir Cutler, scribed for Calixto Simons MD on 03/08/18 at 2335.
[2018-03-08 22:24] LABS: ABS Basophils 0 10^3/ul (0-0.2); ABS Eosinophils 0.1 10^3/ul (0-0.6); ABS Lymphocytes 1.6 10^3/ul (1.0-4.8); ABS Monocytes 0.8 10^3/ul (0-0.8); ABS Nucleated RBC 0 10^3/ul; Eosinophil % 1.6 % (0-6); Hematocrit 42 % (42-52); Hemoglobin 14.5 g/dl (14.0-18.0); Lymphocyte % 21.1 % (25-47); Mean Corpuscular HGB Conc 35 g/dl (31-36); Mean Corpuscular Hemoglobin 33 pg (27-31); Mean Corpuscular Volume 95 fL (80-94); Nucleated Red Blood Cells % 0.1; Platelet Count 217 10^3/ul (150-450); Red Blood Count 4.36 10^6/ul (4.00-5.40); Red Cell Distribution Width 14 % (10.5-15); White Blood Count 7.6 10^3/ul (3.5-10.8)
[2018-03-08 22:39] LABS: EGFR Non-African American 75.2 (>60)
[2018-03-08 23:23] VITALS: BP 0/0
== END 2018-03-08 23:22 | disposition home or self-care (01) ==
LOC: ED 21:19
DX: M10.9 Gout, unspecified (principal); E11.9 Type 2 diabetes mellitus without complications; M19.90 Unspecified osteoarthritis, unspecified site; I48.91 Unspecified atrial fibrillation; I25.10 Atherosclerotic heart disease of native coronary artery without angina pectoris; E78.00 Pure hypercholesterolemia, unspecified; I10 Essential (primary) hypertension; J45.909 Unspecified asthma, uncomplicated; K21.9 Gastro-esophageal reflux disease without esophagitis; Z87.891 Personal history of nicotine dependence
CPT/HCPCS: 36415; 80048; 85025; 99282; A9270-GY

== ENCOUNTER 2018-08-09 13:12 | Observation (INO) | payer MEDICARE, MEDICAID ==
--- OUTSIDE RECORDS SUMMARY | 2018-08-09 13:44 | XMS REPORT | Continuity of Care Document ---
:1955 External Reference #:[id number] Author Name Iván Rosario M.D. Address [address] [place] [address] Care Team Providers Name Role Phone Germaine Rich MD Primary Care Physician Unavailable Payers Date Identification Numbers Payment Provider Subscriber Policy Number: [id number] [facility] Medicare Sadia Remington Azevedo Group Number: [id number] [address] [address] PayID: [id number] [place] [address] Policy Number: [id number] Medicaid Remington Azevedo PayID: [id number] [address] [place] [address] Advance Directives Description No Information Available Problems Date Description Provider Status Onset: 08/05/2014 Essential hypertension Active Onset: 08/05/2014 Pure hypercholesterolemia Active Onset: Type 2 diabetes mellitus Active Onset: 09/08/2015 Aphakia Iván Rosario M.D. Active Onset: 09/08/2015 Corneal edema Iván Rosario M.D. Active Onset: 09/08/2015 Type 2 diabetes mellitus with mild Iván Rosario M.D. Active nonproliferative diabetic retinopathy without macular edema Onset: 2016 Type 2 diabetes mellitus with mild Iván Rosario M.D. Active nonproliferative diabetic retinopathy without macular edema, left eye Onset: 2016 Other optic atrophy, right eye Iván Rosario M.D. Active Family History Date Family Member(s) Observation Comments General Cataract mom and sister General Glaucoma mom and sister Social History Type Date Description Comments Sex Unknown Marital Status Legal Status: Occupation Disabled ETOH Use Denies alcohol use Tobacco Use Start: Unknown End: Unknown Patient is a former smoker Recreational Drug Use Denies Drug Use Smoking Status Reviewed: 07/18/18 Patient is a former smoker Allergies, Adverse Reactions, Alerts Date Description Reaction Status Severity Comments 08/05/2014 Anaprox Active 08/05/2014 Phenergan Active 08/05/2014 [place] Active 08/05/2014 Celebrex Active 08/05/2014 Bee Stings Active 07/18/2018 Xarelto Active 07/18/2018 Naproxen Active Medications Medication Date Status Form Strength Qnty SIG Indications Ordering Provider Citalopram / Active Tablets 40mg Unknown Hydrobromide 0000 Gabapentin // Active Capsules 300mg Unknown 0000 Ra Melatonin / Active Tablets 5mg take 1 Unknown 0000 tablet at bedtime Colchicine / Active Tablets 0.6mg take 1 Unknown 0000 tablet by mouth once daily if needed Vitamin B-6 / Active Tablets 100mg Unknown 0000 Metoprolol / Active Tablets ER 50mg Unknown Succinate ER 0000 24HR Tamsulosin HCL / Active Capsules 0.4mg Unknown 0000 Nasonex / Active Suspension 50mcg/Act instill 2 Unknown 0000 sprays into each nostril once daily Amlodipine / Active Tablets 10mg take 1 Unknown Besylate 0000 tablet by mouth once daily Hydrocodone / Active Tablets 7.5-300mg take 1 Unknown Bitartrate/Otis 0000 tablet taminophen every 4 hours to 6 hours if needed pain Omeprazole // Active Capsules DR 20mg Unknown 0000 Benicar HCT / Active Tablets 40-25mg Unknown 0000 [facility] Daily / Active Tablets Unknown Multiple For 0000 Men Aspirin /00/ Active Tablets 81mg Unknown 0000 Lovastatin / Active Tablets 20mg Unknown 0000 Arnuity / Active Aerosol 100mcg/Act Unknown Ellipta 0000 Quetiapine / Hx Tablets 25mg take 1 Unknown Fumarate 0000 - tablet at bedtime 2018 Proair HFA / Hx Aerosol 108(90Base inhale 1 Unknown 0000 - ) mcg/Act to 2 09/06/ puffs 2017 four times a day if needed Glipizide XL / Hx Tablets ER 2.5mg Unknown 0000 - 24HR 04/24/ 2016 Immunizations Description No Information Available Vital Signs Description No Information Available Results Description No Information Available Procedures Date Code Description Status 09/09/2017 83618 Scanning Computerized Opthalmic Diagnostic Posterior Seg Completed Retina 09/09/2017 61210 Est Patient Comprehensive Exam Completed 2016 90820 Scanning Computerized Opthalmic Diagnostic Posterior Seg Completed Retina 2016 52367 Est Patient Comprehensive Exam Completed 09/08/2015 18020 Scanning Computerized Opthalmic Diagnostic Posterior Seg Completed Retina 09/08/2015 77358 Est Patient Comprehensive Exam Completed 08/05/2014 03092 Est Patient Comprehensive Exam Completed 07/16/2013 45399 Est Patient Comprehensive Exam Completed 10/19/2012 13593 Determination Of Refractive State Completed 04/03/2012 07664 Est Patient Comprehensive Exam Completed 02/22/2011 48969 Determination Of Refractive State Completed 02/22/2011 12584 Est Patient Comprehensive Exam Completed 03/10/2010 61975 Est Patient Comprehensive Exam Completed 03/10/2009 83402 Est Patient Comprehensive Exam Completed 03/10/2009 56745 Determination Of Refractive State Completed 03/07/2008 04453 Determination Of Refractive State Completed 03/07/2008 64536 Est Patient Intermediate Exam Completed 09/29/2007 86239 Est Patient Intermediate Exam Completed 03/07/2007 78549 Determination Of Refractive State Completed 03/07/2007 92931 Est Patient Comprehensive Exam Completed 03/07/2006 06280 Est Patient Comprehensive Exam Completed 03/01/2005 60348 Fundus Photography With Interpretation And Report Completed 03/01/2005 08239 Determination Of Refractive State Completed 03/01/2005 96816 Est Patient Comprehensive Exam Completed 02/28/2004 72336 Determination Of Refractive State Completed 02/28/2004 33562 Est Patient Comprehensive Exam Completed Encounters Description No Information Available Plan of Treatment 07/18/2018 - Iván Rosario M.D.[id number] Type 2 diabetes mellitus with mild nonproliferative diabetic retinopathy without macular edema, left eyeComments: Smoking can increase the risk of developing or worsening any eye related disease , as well as affect your overall health. If you are a smoker, we strongly recommend that you quit.If you are not a smoker, we strongly recommend that you do not start. I can detect diabetic changes in your left eye. Proper control of your diabetes is important for the health of your left eye. It is important that you keep all of your follow up appointments. Dr. Rosario has sent a report to your primary care doctor, letting them know the current status of your retina.Follow up:1 Year Follow Up You can expect to have your eyes dilated at your next visit. If Dr. Rosario orders any additional testing, it may require extra time. We recommend that you bring sunglasses, as dilationdrops often make you light sensitive until they wear off. We always recommend you bring someone to drive you home if you are uncomfortable driving with your eyes dilated. If you have any questions before your next visit, feel free to call our office at .H27.03 Aphakia, [id number] Unspecified corneal [id number] Other optic atrophy, right eyeComments:You have optic atrophy in your right eye. This means that the optic nerve is damaged and can cause vision difficulty.
[2018-08-09] MEDS ORDERED: Nitro 2% OINT* (Nitroglycerin) 1 INCH/PAK PAK TOPICAL ONE (13:46)
--- NOTE | 2018-08-09 13:46 | ED ---
HPI Chest Pain - HPI Summary HPI Summary: This patient is a 62 year old M brought in by ambulance to ED with a chief complaint of R-sided CP s/p going on a 2 block walk at 1130 this morning. He called his PCP who told him to go to the ED. 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 The patient rates the pain 2/10 in severity. Symptoms aggravated by nothing. Symptoms alleviated by tx given by EMS MAT MACHINE TENDER. The CC is described as non-radiating to the L arm. Patient denies tingling, numbness, and pain or swelling in LE. He sees Dr. Parr in 2 days. He has done a stress test before. Usually when he walks this amount, he just gets tired. He also has not taken his insulin in 2 days because he has been having trouble getting his diabetic medications. - History of Current Complaint Chief Complaint: EDChestPainROMI Time Seen by Provider: 08/09/18 13:23 Hx Obtained From: Patient Onset/Duration: Started Hours Ago - since 1130 this morning, Resolved Timing: Constant, Lasting Hours Initial Severity: Mild - 2/10 Current Severity: None Pain Intensity: 2 Pain Scale Used: 0-10 Numeric Chest Pain Location: Discrete at: - R-sided Chest Pain Radiates: No Aggravating Factor(s): Nothing Alleviating Factor(s): EMS Tx - NTG and ASA Associated Signs and Symptoms: Positive: Chest Pain. Negative: Numbness, Tingling, Swelling - Allergy/Home Medications Allergies/Adverse Reactions: Allergies Allergy/AdvReac Type Severity Reaction Status Date / Time bee venom protein (honey bee) Allergy Swelling Verified 03/08/18 21:32 celecoxib Allergy Nausea Verified 03/08/18 21:32 lithium Allergy Hives Verified 03/08/18 21:32 promethazine Allergy See Comment Verified 03/08/18 21:32 rivaroxaban [From Xarelto] Allergy See Comment Verified 03/08/18 21:32 Home Medications: Home Medications Fluticasone Furoate [Arnuity Ellipta] 1 puff INH DAILY 08/09/18 [History Confirmed 08/09/18] Hydrocodone/Acetaminophen [[place] 7.5-325 Tablet] 2 cap PO Q8HR PRN 08/09/18 [ History Confirmed 08/09/18] Olmesartan/Hydrochlorothiazide [Olmesartan Medoxomil/Hydr 40-25 mg] 1 tab PO DAILY 08/09/18 [History Confirmed 08/09/18] Pyridoxine TAB* [Vitamin B6 TAB*] 100 mg PO DAILY 08/09/18 [History Confirmed ] Triamcinolone 0.1% CREAM(NF) [Kenalog Cream 0.1%(NF)] 1 applic TOPICAL DAILY PRN 08/09/18 [History Confirmed 08/09/18] PMH/Surg Hx/FS Hx/Imm Hx Endocrine/Hematology History: Reports: Hx Diabetes - TYPE II- NO MEDICATION FOR Cardiovascular History: Reports: Hx Atrial Fibrillation, Hx Coronary Artery Disease, Hx Hypercholesterolemia, Hx Hypertension - ON MEDICATION FOR, Other Cardiovascular Problems/Disorders - ATRIAL FIBRILLATION-BRINELL TESTER . DR. PARR Respiratory History: Reports: Hx Asthma - PRN INHALER Denies: Hx Chronic Obstructive Pulmonary Disease (COPD) GI History: Reports: Hx Gastroesophageal Reflux Disease - ON MEDICATION FOR Denies: Other GI Disorders History: Reports: Hx Benign Prostatic Hyperplasia, Hx Chronic Renal Failure, Hx Kidney Stones - LEFT 04/2015 Musculoskeletal History: Reports: Hx Arthritis - LOWER BACK, HIPS, HANDS, KNEES Denies: Other Musculoskeletal History Sensory History: Reports: Hx Cataracts - SKY, Hx Contacts or Glasses - GLASSES Denies: Hx Hearing Aid Opthamlomology History: Reports: Hx Cataracts - SKY, Hx Contacts or Glasses - GLASSES Neurological History: Reports: Hx Migraine - A CHILD, Other Neuro Impairments /Disorders - PERIPHERAL NEUROPATHY FEET AND HANDS Psychiatric History: Reports: Hx Anxiety, Hx Depression - HX OF STATES UNDER CONTROL, Hx Bipolar Disorder - Surgical History Surgery Procedure, Year, and Place: R inguinal hernia repair. cataract surgery when patient A YOUNG CHILD. KIDNEY STONE BLASTING-04/2015-[facility] [place]. UMBILICAL HERNIA HAGUIW-[facility]-30/2015 Hx Anesthesia Reactions: No Infectious Disease History: No Infectious Disease History: Denies: Traveled Outside the [place] in Last 30 Days - Family History Known Family History: Positive: Diabetes Negative: Renal Disease Family History: No FHx of malignant hyperthermia. No FHx of anesthesia reaction - Social History Alcohol Use: None Substance Use Type: Reports: None Smoking Status (MU): Former Smoker Type: Cigarettes Amount Used/How Often: STATES ONLY SMOKED FOR ABOUT 1 MONTH Length of Time of Smoking/Using Tobacco: 1 MONTH Have You Smoked in the Last Year: No Review of Systems Negative: Fever, Chills Negative: Erythema Negative: Sore Throat Positive: Chest Pain - R-sided Negative: Shortness Of Breath, Cough Negative: Abdominal Pain, Vomiting, Nausea Negative: dysuria, hematuria Negative: Myalgia, Edema Negative: Rash Neurological: Other - denies dizziness Positive: Numbness - denies numbness and tingling All Other Systems Reviewed And Are Negative: Yes Physical Exam - Summary Physical Exam Summary: Constitutional: Well-developed, Well-nourished, Alert. (-) Distressed Skin: Warm, Dry HENT: Normocephalic; Atraumatic Eyes: Conjunctiva normal Neck: Musculoskeletal ROM normal neck. (-) JVD, (-) Stridor, (-) Tracheal deviation Cardio: Rhythm regular, rate normal, Heart sounds normal; Intact distal pulses; The pedal pulses are 2+ and symmetric. Radial pulses are 2+ and symmetric. (-) Murmur Pulmonary/Chest wall: Effort normal. (-) Respiratory distress, (-) Wheezes, (-) Rales Abd: Soft, (-) epigastric tenderness, (-) Distension, (-) Guarding, (-) Rebound Musculoskeletal: (-) Edema Lymph: (-) Cervical adenopathy Neuro: Alert, Oriented x3 Psych: Mood and affect Normal Triage Information Reviewed: Yes Vital Signs On Initial Exam: Initial Vitals Temp Pulse Resp BP Pulse Ox 97.2 F 86 16 125/79 98 08/09/18 13:22 08/09/18 13:22 08/09/18 13:22 08/09/18 13:22 08/09/18 13:22 Vital Signs Reviewed: Yes Diagnostics - Vital Signs Vital Signs Temp Pulse Resp BP Pulse Ox 08/09/18 13:25 89 125/79 94 08/09/18 13:24 90 98 08/09/18 13:22 97.2 F 86 16 125/79 98 - Laboratory Result Diagrams: 08/09/18 14:11 08/09/18 14:11 Lab Statement: Any lab studies that have been ordered have been reviewed, and results considered in the medical decision making process. - Radiology CXR Radiology Interpretation Completed By: Radiologist Summary of Radiographic Findings: No evidence for acute intrathoracic disease. Dr. Pritchard has reviewed this radiology report. - EKG 1335 Cardiac Rate: Other Rate - afib at 75 BPM Summary of EKG Findings: anterior Q waves, no STEMI Re-Evaluation - Re-Evaluation First Eval Re-Evaluation Time: 16:09 Comment: Discussed results with the patient and plan for admission. Patient understands and agrees with this plan. Chest Pain Course/Dx - Course Assessment/Plan: This patient is a 62 year old M brought in by ambulance to ED with a chief complaint of R-sided CP s/p going on a 2 block walk at 1130 this morning. In the ED course, the patient was given a nitro ointment. EKG reveals afib at 75 BPM, anterior Q waves, and no STEMI. CXR reveals no evidence for acute intrathoracic disease. Consulted Dr. Gil at 1602 and he accepts the patient for admission. The patient will be admitted with dx of CP unspecified. Patient understands and agrees with this plan. - Chest Pain Differential Diagnosis/HQI/PQRI: Other: - CP unspecified - Diagnoses Provider Diagnoses: Chest pain, unspecified - Provider Notifications Discussed Care Of Patient With: Floyd Gil Time Discussed With Above Provider: 16:02 Instructed by Provider To: Admit As Inpatient Discharge - Sign-Out/Discharge Documenting (check all that apply): Patient Departure - admit Patient Received Moderate/Deep Sedation with Procedure: No - Discharge Plan Condition: Stable Disposition: ADMITTED TO [facility] Referrals: Kin Steele MD [Medical Doctor] - - Attestation Statements Document Initiated by Scribe: Yes Documenting Scribe: Blake Mclaughlin Provider For Whom Scribe is Documenting (Include Credential): Juan Pritchard MD Scribe Attestation: Blake Cutler, scribed for Juan Pritchard MD on 08/09/18 at 1607. Status of Scribe Document: Ready
[2018-08-09 14:20] LABS: ABS Basophils 0 10^3/ul (0-0.2); ABS Eosinophils 0.1 10^3/ul (0-0.6); ABS Lymphocytes 1.3 10^3/ul (1.0-4.8); ABS Monocytes 0.5 10^3/ul (0-0.8); ABS Neutrophils 3.3 10^3/ul (1.5-7.7); ABS Nucleated RBC 0 10^3/ul; Eosinophil % 1.3 %; Hematocrit 44 % (36-46); Lymphocyte % 24.9 %; Mean Corpuscular HGB Conc 34 g/dL (31-36); Mean Corpuscular Hemoglobin 32 pg (27-31); Mean Corpuscular Volume 94 fL (80-94); Mean Platelet Volume 7.1 fL (7.4-10.4); Nucleated Red Blood Cells % 0.1; Platelet Count 234 10^3/uL (150-450); Red Blood Count 4.67 10^6 /uL (4.18-5.48); Red Cell Distribution Width 14 % (10.5-15); White Blood Count 5.2 10^3/uL (3.5-10.8)
[2018-08-09 14:37] LABS: Albumin 4.1 g/dL (3.2-5.2); Albumin/Globulin Ratio 1.7 (1-3); BUN/Creatinine Ratio 16.7 (8-20); Calcium 9.2 mg/dL (8.6-10.3); EGFR Non-African American 73.5 (>60); Globulin 2.4 g/dL (2-4); Potassium 3.8 mmol/L (3.5-5.0); Total Bilirubin 0.5 mg/dL (0.2-1.0); Total Protein 6.5 g/dL (6.4-8.9)
[2018-08-09] MEDS ORDERED: Acetaminophen TAB* 325 MG PO PRN (17:21)
[2018-08-09] MEDS ORDERED: Dextrose 50% Syringe 50 ML* 25 GM/50 ML SYRINGE IV PUSH PRN (17:21)
[2018-08-09] MEDS ORDERED: Ondansetron INJ* 2 MG/ML VIAL IV PRN (17:21)
[2018-08-09] MEDS ORDERED: HYDROcodone/ACETAMIN 5-325 MG* 1 TAB PO PRN (17:27)
[2018-08-09] MEDS ORDERED: Albuterol 2.5 MG/3 ML NEB.SOL* (0.083%) INH PRN (17:40)
--- NOTE | 2018-08-09 20:59 | HP ---
CC: Dr. Rich* HISTORY AND PHYSICAL: DATE OF ADMISSION: 08/09/18 PRIMARY CARE PROVIDER: Dr. Rich. ATTENDING PHYSICIAN WHILE IN THE HOSPITAL: Dr. Floyd Gil* ( report being dictated by Tyrell Coffey NP). CHIEF COMPLAINT: Chest pain. HISTORY OF PRESENT ILLNESS: Mr. Azevedo is a 62-year-old male patient who has a history of hypertension, hyperlipidemia, AFib, low back pain; chronic, history of GI bleed, diverticulosis, CAD, bipolar disorder, nephrolithiasis, diabetes; diet controlled, history of gout, and asthma who is coming into our ER today stating that he was on his way down to visit a friend at work and who had to walk about 2 blocks, and in the midst of walking, he noted he started getting chest pressure and discomfort. He sat down, the discomfort got better, but it took about an hour to go away. While it was going away, he called his PCP, who recommended that he summon the ambulance. He denied any associated shortness of breath. No diaphoresis. No nausea or vomiting. He says in the days leading up to this and weeks leading up to this, he has not had any recent chest pain. He says that he has not been sick recently. He denied having any alleviating factors, with the exception of just resting. He denied any aggravating factors, with the exception of exertion. He says he was not able to lie flat to see if that made it any worse or better. He called 911 like he was instructed to and he came into the hospital. He denied any recent illnesses. No fevers or chills. No abdominal pain. No nausea or vomiting. He denied having any abdominal discomfort. He again was concerned because of the chest pain and was evaluated in the ER, and because of his significant risk factors, we were asked to evaluate for admission. PAST MEDICAL HISTORY: Significant for: 1. Hypertension. 2. Hyperlipidemia. 3. AFib. 4. Chronic low back pain. 5. History of GI bleed. 6. Diverticulosis. 7. CAD. 8. Bipolar. 9. Nephrolithiasis. 10. Diabetes. 11. Gout. 12. Asthma. PAST SURGICAL HISTORY: He has had: 1. Hernia repair x2. 2. Heart catheterization. 3. Carpal tunnel surgery. 4. Cataract extraction. MEDICATIONS: His home medications include: 1. [place] 2 tablets every 8 hours as needed. 2. Ellipta 1 puff inhaled daily. 3. Triamcinolone cream 1 application topically daily as needed. 4. Melatonin 5 mg at bedtime as needed. 5. Multivitamin 1 tablet daily. 6. Ibuprofen 800 mg every 6 hours as needed. 7. Flomax 0.4 mg p.o. at bedtime. 8. Aspirin 81 mg daily. 9. Vitamin B6 at 100 mg p.o. daily. 10. Norvasc 10 mg p.o. q.a.m. 11. Mevacor 20 mg p.o. at bedtime. 12. Colace 200 mg p.o. daily as needed. 13. Prilosec 20 mg p.o. daily. 14. Olmesartan/hydrochlorothiazide 1 tablet daily. 15. Neurontin 600 mg p.o. daily. 16. Celexa 40 mg p.o. at bedtime. ALLERGIES: To medications include CELEBREX, LITHIUM, PHENERGAN, and XARELTO. FAMILY HISTORY: His mother had a history of renal cancer. Father had a history of bone cancer. SOCIAL HISTORY: He is a nonsmoker. He does not drink alcohol. Surrogate decision maker is his aunt, Glenny. REVIEW OF SYSTEMS: There is no documented fever. He denied having any significant weight change. There is no double vision. He denies having any ear discharge. There was no rhinorrhea. There was no sore throat, no thyroid enlargement. He did admit to chest pain from HPI. There was no orthopnea. There was no nocturnal dyspnea. He denied having any abdominal pain. There was no nausea, no vomiting. No dysuria, no frequency, no seizure, no loss of consciousness. No pruritus, no skin ulcerations. Review of 14 systems was completed, all others negative. PHYSICAL EXAMINATION GENERAL: At this time, Mr. Azevedo is a 62-year-old male patient. He is sitting in the ED stretcher. He does not appear to be in any acute distress. He appears to be well nourished and well developed. VITAL SIGNS: Blood pressure 115/62, pulse 75, respirations 20, O2 sat 94%, temperature 97.2. HEENT: Head: Atraumatic and normocephalic. Eyes: EOMs are intact. Sclerae anicteric, not pale. Throat: Oral mucosa appears to be moist. No oropharyngeal erythema. NECK: Supple. LUNGS: Clear to auscultation bilaterally. There were no wheezes, rales, or rhonchi. HEART: Heart sounds S1, S2. He had a regular rate and rhythm. There were no murmurs, rubs, or gallops appreciated. ABDOMEN: Soft. It was flat. It was nontender. Bowel sounds were present. EXTREMITIES: Pulses were 2+ throughout. He is moving all 4 extremities with 5/ 5 strength. NEUROLOGICAL: He is awake. He is alert. He is oriented x3. He had no gross focal deficits. SKIN: Intact. DIAGNOSTIC STUDIES/LAB DATA: Labs: Today, WBC of 5.2, RBC 4.67, hemoglobin of 15.0, hematocrit of 44, platelet count of 234. His sodium was 140, potassium was 3.8, chloride of 106, bicarb 28, BUN 17, creatinine 1.02, glucose of 113. Lactate 1.4. Calcium 9.2. Total bili of 0.5, AST 22, ALT 17, alk phos 67. Troponin 0.00, repeat troponin was 0.01. Albumin 4.1. He had a chest x-ray obtained today, which showed no evidence for acute intrathoracic disease. EKG obtained today, which showed a normal sinus rhythm at a rate of 75. He had no ST elevations or T-wave inversions noted. Compared to previous EKG, appears to be similar. Old medical records were reviewed. ASSESSMENT AND PLAN: Mr. Azevedo is a 62-year-old male patient coming in to the ED today with complaints of chest pain with exertion. He will be admitted under observation status for: 1. Chest pain. Again, he has significant risk factors for coronary artery disease. He has known nonobstructive coronary artery disease. He has had heart catheterizations previously. He is on aspirin and at this point, I would not add on a beta mahad unless absolutely necessary given his history of asthma. He is on his calcium channel mahad in the form of amlodipine and he is on Mevacor. I will continue these medications. I will cycle his troponins. I have ordered a stress test with serial EKGs. I will check a lipid panel and and an A1c and will continue to follow. I am concerned because he did have exertional pain, so again, with his risk factors, I think he deserves a stress test. 2. Hypertension. Continue meds as prescribed. 3. Hyperlipidemia. We will check lipid panel. Continue his statin. 4. History of atrial fibrillation. He was at one point supposed to be restarted on Eliquis according to him, but he states his primary care physician never called him back to start. He has significant risk factors for stroke. Again, there was a history of diet-controlled diabetes, hypertension. His CHADS -VASc score is 3 points, which is a stroke risk of 3.2% per year. So, by recommendations, he should be anticoagulated; however, he has had gastrointestinal bleeds in the past, so he is hesitant. At this point, I explained the risk of stroke. He knows he is at increased risk. I do believe that should be visited. Again, my strong recommendation is for him to go on Eliquis. 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 5. History of chronic back pain. Continue meds as prescribed. 6. History of diverticulosis. Not an active issue. 7. Coronary artery disease. He is on aspirin and a statin. No beta mahad because of the history of asthma, but he is on amlodipine. We will continue. 8. Nephrolithiasis. Not an active issue. 9. Bipolar disorder. Continue with supportive care. 10. Diabetes. Again, it is diet controlled. I will continue him on lispro sliding scale while he is here. 11. Gout. Not active at this point. We will monitor. 12. Asthma. We will continue his meds as prescribed and I have ordered p.r.n. albuterol. 13. DVT prophylaxis. He will be placed on heparin subcu. 14. Code status. Full code. 15. Fluids, electrolytes, and nutrition. He will have a heart-healthy diet and be n.p.o. after midnight. TIME SPENT: Time spent on the admission 60 minutes, greater than half the time spent [id number] with the patient obtaining my history and physical; other half of the time spent going over the plan of care with the patient and implementing my plan of care. I did discuss the plan of care with my attending, Dr. Gil; he is in agreement. TYRELL COFFEY WEB PRESS ROLL TENDER [id number]/[facility] #: [id number] DON
[2018-08-09] MEDS ORDERED: Gabapentin CAP(*) 300 MG PO SCH (21:00)
[2018-08-09] MEDS ORDERED: Atorvastatin* 10 MG TAB PO SCH (21:00)
[2018-08-09] MEDS ORDERED: Tamsulosin CAP* 0.4 MG PO SCH (21:00)
[2018-08-09] MEDS ORDERED: Citalopram TAB* 40 MG PO SCH (21:00)
[2018-08-09] MEDS: Heparin VIAL(*) 5000 UNITS/ML VIAL (FIVE THOUSAND) SUBCUT SCH (21:38)
[2018-08-10] MEDS: Heparin VIAL(*) 5000 UNITS/ML VIAL (FIVE THOUSAND) SUBCUT SCH ×2 (05:19→14:23)
[2018-08-10 05:49] LABS: ABS Basophils 0 10^3/ul (0-0.2); ABS Eosinophils 0.1 10^3/ul (0-0.6); ABS Lymphocytes 1.8 10^3/ul (1.0-4.8); ABS Monocytes 0.6 10^3/ul (0-0.8); ABS Neutrophils 3.2 10^3/ul (1.5-7.7); ABS Nucleated RBC 0 10^3/ul; Eosinophil % 1.3 %; Hematocrit 44 % (36-46); Hemoglobin 14.9 g/dL (14.0-18.0); Lymphocyte % 31.4 %; Mean Corpuscular HGB Conc 34 g/dL (31-36); Mean Corpuscular Hemoglobin 32 pg (27-31); Mean Corpuscular Volume 93 fL (80-94); Mean Platelet Volume 7.2 fL (7.4-10.4); Nucleated Red Blood Cells % 0; Platelet Count 225 10^3/uL (150-450); Red Blood Count 4.68 10^6 /uL (4.18-5.48); Red Cell Distribution Width 14 % (10.5-15); White Blood Count 5.8 10^3/uL (3.5-10.8)
[2018-08-10 05:56] LABS: INR 0.96 (0.77-1.02)
[2018-08-10 06:09] LABS: BUN/Creatinine Ratio 19.2 (8-20); Calcium 9.1 mg/dL (8.6-10.3); EGFR Non-African American 71.9 (>60)
[2018-08-10] MEDS: Insulin LISPRO* 1 UNITS UNIT SUBCUT SCH ×2 (07:35→11:19)
[2018-08-10] MEDS ORDERED: Pyridoxine TAB* 50 MG PO SCH (09:00)
[2018-08-10] MEDS ORDERED: Hydrochlorothiazide TAB* 25 MG PO SCH (09:00)
[2018-08-10] MEDS ORDERED: Valsartan TAB* 160 MG PO SCH (09:00)
[2018-08-10] MEDS ORDERED: Aspirin 81 mg CHEW TAB* 81 MG TAB.CHEW PO SCH (09:00)
[2018-08-10] MEDS ORDERED: FLUTICASONE FUROATE INH SCH (09:00)
[2018-08-10] MEDS ORDERED: Pantoprazole TAB * 40 MG TAB PO SCH (09:00)
[2018-08-10] MEDS ORDERED: amLODIPine TAB* 5 MG PO SCH (09:00)
[2018-08-10 11:28] VITALS: BP 132/65
[2018-08-10] MEDS ORDERED: Regadenoson* 0.4 MG/5 ML SYRINGE ONE (11:45)
--- NOTE | 2018-08-10 22:59 | DS ---
CC: Dr. Rich; Dr. Woo * DISCHARGE SUMMARY: DATE OF ADMISSION: 08/09/18 DATE OF DISCHARGE: 08/10/18 PRIMARY CARE PROVIDER: Dr. Rich. SUPERVISOR TYPE BAR AND SEGMENT: Dr. Woo. DISCHARGE DIAGNOSIS: Chest pain with low probability cardiac stress test documented on 08/10/18. SECONDARY DIAGNOSES: 1. History of atrial fibrillation, not on anticoagulation due to gastrointestinal bleed 4 years ago. 2. Hypertension. 3. Hyperlipidemia. 4. Chronic back pain. 5. Diverticulosis. 6. Coronary artery disease. 7. Bipolar disease. 8. Nephrolithiasis. 9. Diabetes. Please note that the patient's diabetes is diet controlled. 10. Gout. 11. History of asthma. MEDICATIONS AT DISCHARGE: Unchanged from admission and includes: 1. Amlodipine 10 mg daily. 2. Aspirin 81 mg daily. 3. Celexa 40 mg at bedtime. 4. Colace 200 mg at bedtime. 5. Arnuity Ellipta 1 puff daily. 6. Neurontin 600 mg at bedtime. 7. [place] 7.5/325 mg 2 capsules every 8 hours p.r.n. 8. Mevacor 20 mg at bedtime. 9. Melatonin 5 mg at bedtime. 10. Multivitamin 1 tablet daily. 11. Olmesartan with hydrochlorothiazide 40/25 one tablet daily. 12. Omeprazole 20 mg daily. 13. Vitamin B6 100 mg daily. 14. Flomax 0.4 mg at bedtime. 15. Kenalog 0.1% cream apply to affected areas on a daily basis p.r.n. 16. Ibuprofen on a p.r.n. basis. LABORATORY DATA AND STUDIES PERFORMED DURING THE HOSPITAL STAY: Included on , white blood cell count of 5.8, hemoglobin 14.9, hematocrit 44, and platelets of 225. Sodium was 145, potassium 4.0, chloride 108, carbon dioxide 28 , BUN 20, creatinine 1.04. Liver function tests were obtained at admission and were unremarkable. Troponin was in the range of 0 to 0.01 in multiple draws. Cholesterol profile shows triglycerides of 170, cholesterol total of 126, LDL of 55, and HDL of 37. Hemoglobin A1c was 6.4. The patient's cardiac stress test in the nuclear portion was read by the radiologist as "no definite fixed or reversible perfusion defects," to be low risk and EF was noted to be 62% with stress. The conclusion of the treadmill portion showed baseline mild ST-wave abnormalities noted with development of T- wave inversion inferolaterally as described, but less reliable due to the baseline abnormalities. "Nuclear portion to be reported separately by Radiology." HOSPITALIZATION COURSE: Remington Azevedo is a 62-year-old male with history of heart disease and diabetes, that is diet controlled as well as chronic atrial fibrillation for which he is not anticoagulated for the past 4 years because of his GI bleed, who presented to the hospital complaining of chest pain. Please see history and physical for further details. Shortly, the patient had no records of chest pain during his hospital stay. His treadmill Myoview was stated as above. There were some nonspecific ST changes on the exercise portion. The patient is in chronic atrial fibrillation. The nuclear part of the stress test was noted to be low risk. The patient feels by his baseline and he ambulated on the day of discharge around the unit without any recurrence of chest pain. We briefly discussed with the patient his anticoagulation. The patient is advised to be anticoagulated. He stated that he was given a prescription for Eliquis by his primary care provider, but then he was supposed not to use this and he did not. At this point, I suspect that the patient will need to be placed on anticoagulation. As this patient sees Dr. Woo tomorrow for followup, I will leave it up to the patient's drug regulatory affairs specialist to make the decision. I am unsure why the patient was given a script in the past, but he was not supposed to fill it. The patient is going to be discharged home. Recommendation to follow up with his primary care provider in [address] Woo as previously ordered tomorrow. PHYSICAL EXAMINATION AT DISCHARGE: Unchanged from admission. [id number]/[facility] #: [id number] DON
== END 2018-08-10 15:24 | disposition home or self-care (01) ==
LOC: ED 13:12 → MEDTELE 17:19
PROVIDERS: ADMIT Internal Medicine; ATTEND Internal Medicine
DX: R07.9 Chest pain, unspecified (principal); I48.91 Unspecified atrial fibrillation; E11.9 Type 2 diabetes mellitus without complications; I25.10 Atherosclerotic heart disease of native coronary artery without angina pectoris; I10 Essential (primary) hypertension; K21.9 Gastro-esophageal reflux disease without esophagitis; N40.0 Benign prostatic hyperplasia without lower urinary tract symptoms; Z87.891 Personal history of nicotine dependence; E78.5 Hyperlipidemia, unspecified; M54.9 Dorsalgia, unspecified; F31.9 Bipolar disorder, unspecified; N20.0 Calculus of kidney; Z79.82 Long term (current) use of aspirin; Z95.5 Presence of coronary angioplasty implant and graft
CPT/HCPCS: 36415; 71045; 78452; 80048; 80053; 80061; 83036; 83605; 84484; 85025; 85610; 93005; 93017; 96360; 99284; A9270-GY; A9502; G0378; J1644; J2785

== ENCOUNTER 2018-10-03 16:15 | Emergency (ER) | payer MEDICARE, MEDICAID ==
[2018-10-03] MEDS ORDERED: Diazepam TAB(*) 5 MG PO ONE (16:47)
--- NOTE | 2018-10-03 18:09 | ED ---
Back Pain - HPI Summary HPI Summary: Patient complains of sudden onset acute on chronic lower back pain today. History of herniated disks. Patient denies any specific event, but does state he walked a lot further today than he normally does. Denies imbalance, numbness and tingling in bilateral lower extremities, urinary retention, incontinence, trauma, fever, cough, sore throat, CP, SOB, N/V/D, abdominal pain , change in urine, change in BM. Medical history is DM 2, CK D, HTN. Patient ambulatory. - History of Current Complaint Chief Complaint: EDBackInjuryPain Stated Complaint: BACK PAIN PER PT Time Seen by Provider: 10/03/18 16:36 Hx Obtained From: Patient Onset/Duration: Sudden Onset, Lasting Hours Onset/Duration: Started Hours Ago Timing: Constant Back Pain Location: Is Discrete @ Severity Initially: Severe Severity Currently: Severe Pain Intensity: 8 Pain Scale Used: 0-10 Numeric Character: Aching Aggravating Symptom(s): Movement, Bending Alleviating Symptom(s): Rest, Position Associated Signs And Symptoms: Positive: Negative - Allergies/Home Medications Allergies/Adverse Reactions: Allergies Allergy/AdvReac Type Severity Reaction Status Date / Time bee venom protein (honey bee) Allergy Swelling Verified 10/03/18 16:43 celecoxib Allergy Nausea Verified 10/03/18 16:43 lithium Allergy Hives Verified 10/03/18 16:43 promethazine Allergy See Comment Verified 10/03/18 16:43 rivaroxaban [From Xarelto] Allergy See Comment Verified 10/03/18 16:43 PMH/Surg Hx/FS Hx/Imm Hx Endocrine/Hematology History: Reports: Hx Diabetes - TYPE II- NO MEDICATION FOR Cardiovascular History: Reports: Hx Angina, Hx Atrial Fibrillation, Hx Coronary Artery Disease, Hx Hypercholesterolemia, Hx Hypertension - ON MEDICATION FOR, 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 Respiratory History: Reports: Hx Asthma - PRN INHALER Denies: Hx Chronic Obstructive Pulmonary Disease (COPD) GI History: Reports: Hx Gastroesophageal Reflux Disease - ON MEDICATION FOR Denies: Other GI Disorders History: Reports: Hx Benign Prostatic Hyperplasia, Hx Chronic Renal Failure, Hx Kidney Stones - LEFT 04/2015 Musculoskeletal History: Reports: Hx Arthritis - LOWER BACK, HIPS, HANDS, KNEES Denies: Other Musculoskeletal History Sensory History: Reports: Hx Cataracts - SKY, Hx Contacts or Glasses - GLASSES Denies: Hx Hearing Aid Opthamlomology History: Reports: Hx Cataracts - SKY, Hx Contacts or Glasses - GLASSES Neurological History: Reports: Hx Migraine - A CHILD, Other Neuro Impairments /Disorders - PERIPHERAL NEUROPATHY FEET AND HANDS Psychiatric History: Reports: Hx Anxiety, Hx Depression - HX OF STATES UNDER CONTROL, Hx Bipolar Disorder - Surgical History Surgery Procedure, Year, and Place: R inguinal hernia repair. cataract surgery when patient A YOUNG CHILD. KIDNEY STONE BLASTING[place]04/2015[place] [place] UMBILICAL HERNIA [id number]/2015 Hx Anesthesia Reactions: No Infectious Disease History: No Infectious Disease History: Denies: Traveled Outside the [place] in Last 30 Days - Family History Known Family History: Positive: Diabetes Negative: Renal Disease Family History: No FHx of malignant hyperthermia. No FHx of anesthesia reaction - Social History Alcohol Use: None Substance Use Type: Reports: None Smoking Status (MU): Former Smoker Type: Cigarettes Amount Used/How Often: STATES ONLY SMOKED FOR ABOUT 1 MONTH Length of Time of Smoking/Using Tobacco: 1 MONTH Have You Smoked in the Last Year: No Review of Systems Constitutional: Negative Eyes: Negative ENT: Negative Cardiovascular: Negative Respiratory: Negative Gastrointestinal: Negative Genitourinary: Negative Musculoskeletal: Other Skin: Negative Neurological: Negative Psychological: Normal All Other Systems Reviewed And Are Negative: Yes Physical Exam - Summary Physical Exam Summary: Tenderness along paraspinal muscles of lower lumbar spine. PMS intact distally in bilateral lower extremities. Negative straight leg tests bilaterally. No ecchymosis, erythema, deformity, swelling, mass noted to back. Triage Information Reviewed: Yes Vital Signs On Initial Exam: Initial Vitals Temp Pulse Resp BP Pulse Ox 98.1 F 94 20 118/82 98 10/03/18 16:17 10/03/18 16:17 10/03/18 16:17 10/03/18 16:17 10/03/18 16:17 Vital Signs Reviewed: Yes Appearance: Positive: Well-Appearing Skin: Positive: Warm Head/Face: Positive: Normal Head/Face Inspection Eyes: Positive: Normal Neck: Positive: Supple Respiratory/Lung Sounds: Positive: Clear to Auscultation Cardiovascular: Positive: Normal Abdomen Description: Positive: Nontender Musculoskeletal: Positive: Normal Neurological: Positive: Normal Psychiatric: Positive: Normal AVPU Assessment: Alert - [place] Coma Scale Best Eye Response: 4 - Spontaneous Best Motor Response: 6 - Obeys Commands Best Verbal Response: 5 - Oriented Coma Scale Total: 15 Diagnostics - Vital Signs Vital Signs Temp Pulse Resp BP Pulse Ox 10/03/18 17:26 18 10/03/18 16:17 98.1 F 94 20 118/82 98 - Laboratory Lab Statement: Any lab studies that have been ordered have been reviewed, and results considered in the medical decision making process. Back Pain Course/Dx - Course Course Of Treatment: Patient complains of sudden onset acute on chronic lower back pain today. History of herniated disks. Patient denies any specific event , but does state he walked a lot further today than he normally does. Denies imbalance, numbness and tingling in bilateral lower extremities, urinary retention, incontinence, trauma, fever, cough, sore throat, CP, SOB, N/V/D, abdominal pain, change in urine, change in BM. Medical history is DM 2, CK D, HTN. Patient ambulatory. Physical exam:Tenderness along paraspinal muscles of lower lumbar spine. PMS intact distally in bilateral lower extremities. Negative straight leg tests bilaterally. No ecchymosis, erythema, deformity, swelling, mass noted to back. Vital signs within normal limits. Patient's symptoms improved with IM 5 mg by mouth. Rx for same. Patient ambulated out of ED. - Diagnoses Provider Diagnoses: Muscle spasm Discharge - Sign-Out/Discharge Documenting (check all that apply): Patient Departure Patient Received Moderate/Deep Sedation with Procedure: No - Discharge Plan Condition: Stable Disposition: HOME Prescriptions: Diazepam TAB(*) [Valium TAB(*)] 5 mg PO TID PRN 2 Days #6 tab MDD 3 tabs PRN Reason: Pain Patient Education Materials: Muscle Spasm (ED) Referrals: Germaine Rich MD [Primary Care Provider] - Milad Anaya MD [Medical Doctor] - Additional Instructions: Take Valium as directed for muscle spasm. If back pain persists for more than a few days follow-up with orthopedics Dr. Anaya for further evaluation. Return to the ED for any new or worsening symptoms. - Billing Disposition and Condition Condition: STABLE Disposition: Home
[2018-10-03 18:20] VITALS: BP 118/80
== END 2018-10-03 18:18 | disposition home or self-care (01) ==
LOC: ED 16:15
DX: M62.830 Muscle spasm of back (principal); J45.909 Unspecified asthma, uncomplicated; K21.9 Gastro-esophageal reflux disease without esophagitis; E11.22 Type 2 diabetes mellitus with diabetic chronic kidney disease; I12.9 Hypertensive chronic kidney disease with stage 1 through stage 4 chronic kidney disease, or unspecified chronic kidney disease; N18.9 Chronic kidney disease, unspecified; Z88.8 Allergy status to other drugs, medicaments and biological substances; Z91.030 Bee allergy status; Z87.891 Personal history of nicotine dependence
CPT/HCPCS: 99282; A9270-GY

== ENCOUNTER 2018-10-06 19:23 | Emergency (ER) | payer MEDICARE, MEDICAID ==
[2018-10-06] MEDS ORDERED: Azithromycin TAB* 250 MG PO ONE (22:59)
[2018-10-06] MEDS ORDERED: predniSONE TAB* 20 MG PO ONE (22:59)
--- NOTE | 2018-10-06 23:06 | ED ---
Respiratory - HPI Summary HPI Summary: 63-year-old male presents with complaints of cough and mild SOB. He was seen at this facility on 10/03/2018 for acute on chronic low back pain and states since that time has developed nasal congestion, non-productive cough, wheezing, and mild SOB. States the coughing is aggravating his low back pain. Has tried OTC cough suppressant without relief. Hx of asthma. States has only used his rescue inhaler a couple times. Denies fever, chills, sore throat, chest pain, palpitations, weakness, dizziness, diaphoresis, abdominal pain, nasuea, vomiting , weakness, numbness, or tingling of the lower extremities, or loss of bowel or bladder control. - History of Current Complaint Chief Complaint: EDGeneral Stated Complaint: COUGH/BACK PAIN PER PT Time Seen by Provider: 10/06/18 22:25 Hx Obtained From: Patient Pain Intensity: 7 - Allergy/Home Medications Allergies/Adverse Reactions: Allergies Allergy/AdvReac Type Severity Reaction Status Date / Time bee venom protein (honey bee) Allergy Swelling Verified 10/06/18 19:27 celecoxib Allergy Nausea Verified 10/06/18 19:27 lithium Allergy Hives Verified 10/06/18 19:27 promethazine Allergy See Comment Verified 10/06/18 19:27 rivaroxaban [From Xarelto] Allergy See Comment Verified 10/06/18 19:27 PMH/Surg Hx/FS Hx/Imm Hx Endocrine/Hematology History: Reports: Hx Diabetes - TYPE II- NO MEDICATION FOR Cardiovascular History: Reports: Hx Angina, Hx Atrial Fibrillation, Hx Coronary Artery Disease, Hx Hypercholesterolemia, Hx Hypertension - ON MEDICATION FOR, 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 Respiratory History: Reports: Hx Asthma - PRN INHALER Denies: Hx Chronic Obstructive Pulmonary Disease (COPD) GI History: Reports: Hx Gastroesophageal Reflux Disease - ON MEDICATION FOR Denies: Other GI Disorders History: Reports: Hx Benign Prostatic Hyperplasia, Hx Chronic Renal Failure, Hx Kidney Stones - LEFT 04/2015 Musculoskeletal History: Reports: Hx Arthritis - LOWER BACK, HIPS, HANDS, KNEES Denies: Other Musculoskeletal History Sensory History: Reports: Hx Cataracts - SKY, Hx Contacts or Glasses - GLASSES Denies: Hx Hearing Aid Opthamlomology History: Reports: Hx Cataracts - SKY, Hx Contacts or Glasses - GLASSES Neurological History: Reports: Hx Migraine - A CHILD, Other Neuro Impairments /Disorders - PERIPHERAL NEUROPATHY FEET AND HANDS Psychiatric History: Reports: Hx Anxiety, Hx Depression - HX OF STATES UNDER CONTROL, Hx Bipolar Disorder - Surgical History Surgery Procedure, Year, and Place: R inguinal hernia repair. cataract surgery when patient A YOUNG CHILD. KIDNEY STONE BLASTING-04/2015-[facility] – [place]. UMBILICAL HERNIA [id number]/2015 Hx Anesthesia Reactions: No Infectious Disease History: No Infectious Disease History: Denies: Traveled Outside the [place] in Last 30 Days - Family History Known Family History: Positive: Diabetes Negative: Renal Disease Family History: No FHx of malignant hyperthermia. No FHx of anesthesia reaction - Social History Alcohol Use: None Substance Use Type: Reports: None Smoking Status (MU): Former Smoker Type: Cigarettes Amount Used/How Often: STATES ONLY SMOKED FOR ABOUT 1 MONTH Length of Time of Smoking/Using Tobacco: 1 MONTH Have You Smoked in the Last Year: No Review of Systems Negative: Fever, Chills Negative: Drainage, Erythema Positive: Nasal Discharge, Other - Nasal congestion. Negative: Sore Throat, Ear Ache Negative: Palpitations, Chest Pain Positive: Cough, Other - wheezing. Negative: Shortness Of Breath Negative: Abdominal Pain, Vomiting, Diarrhea, Nausea Genitourinary: Negative Positive: Other - Back pain Skin: Negative Neurological: Negative All Other Systems Reviewed And Are Negative: Yes Physical Exam - Summary Physical Exam Summary: GENERAL APPEARANCE: Well developed, well nourished, alert and cooperative, and appears to be in no acute distress. EYES: Conjunctiva clear. No drainage. EARS: External auditory canals and tympanic membranes clear, hearing grossly intact. NOSE: Moderate nasal congestion. THROAT: Pharynx normal. No tonsilar inflammation, swelling, exudate, or lesions. Uvula midline. Oral cavity normal. Teeth and gingiva in good general condition. NECK: Neck supple, non-tender without lymphadenopathy. CARDIAC: Normal S1 and S2. No S3, S4 or murmurs. Rhythm is regular. There is no peripheral edema, cyanosis or pallor. Extremities are warm and well perfused. Capillary refill is less than 2 seconds. Peripheral pulses intact. LUNGS: Few scattered bilateral wheezes. ABDOMEN: Positive bowel sounds. Soft, nondistended, nontender. No guarding or rebound. No masses or hepatosplenomegally. MUSKULOSKELETAL: ROM intact to all extremities. No joint erythema or tenderness. Normal muscular development. BACK: Examination of the spine reveals normal posture, no spinal deformity or tenderness, decreased range of motion or muscular spasm. Strength and sensation symmetric and intact to bilateral lower extremities. Normal gait. SKIN: Skin normal color, texture and turgor with no lesions or eruptions. Triage Information Reviewed: Yes Vital Signs On Initial Exam: Initial Vitals Temp Pulse Resp BP Pulse Ox 98.3 F 90 18 135/79 98 10/06/18 19:24 10/06/18 19:24 10/06/18 19:24 10/06/18 19:24 10/06/18 19:24 Vital Signs Reviewed: Yes Diagnostics - Vital Signs Vital Signs Temp Pulse Resp BP Pulse Ox 10/06/18 21:27 98.0 F 86 16 129/76 97 10/06/18 19:24 98.3 F 90 18 135/79 98 - Laboratory Lab Statement: Any lab studies that have been ordered have been reviewed, and results considered in the medical decision making process. - Radiology No standard instances Radiology Interpretation Completed By: ED Physician - No acute cardiopulmary pathology Disposition - Course Course Of Treatment: 63-year-old male presents with complaints of cough and mild SOB. He was seen at this facility on 10/03/2018 for acute on chronic low back pain and states since that time has developed nasal congestion, non- productive cough, wheezing, and mild SOB. States the coughing is aggravating his low back pain. Has tried OTC cough suppressant without relief. Hx of asthma. States has only used his rescue inhaler a couple times. Denies fever, chills, sore throat, chest pain, palpitations, weakness, dizziness, diaphoresis , abdominal pain, nasuea, vomiting, weakness, numbness, or tingling of the lower extremities, or loss of bowel or bladder control. Afebrile. Vital signs stable. Patient had moderate nasal congestion and bilateral scattered wheezes but otherwise normal exam. Symptoms are likely an acute bronchitis with exacerbation of his asthma. Discussed with patient that this is likely viral in nature and reviewed pros and cons of treating with antibiotics and patient is electing to start antibiotics at this time. Will prescribe a course of azithromycin as well as start a short course of prednisone. First dose of each was given in the ED. I have also encouraged him to utilize his rescue inhaler 2 puffs every 4-6 hours as needed. Patient is to follow up with his PCP in 4 days for recheck of symptoms. Anticipatory guidance and warning symptoms were reviewed with the patient. Verbalizes understanding and agrees with POC. - Differential Dx - Cardiopulmonary Differential Diagnoses - Cardiopulmonary: Bronchitis, Lower Resp Infection, Other - URI - Diagnoses Provider Diagnoses: Acute bronchitis, Asthma Discharge - Sign-Out/Discharge Documenting (check all that apply): Patient Departure Patient Received Moderate/Deep Sedation with Procedure: No - Discharge Plan Condition: Stable Disposition: HOME Prescriptions: Azithromycin 250 mg PO DAILY #4 tablet predniSONE [Prednisone 20 MG TAB] 40 mg PO DAILY #8 tablet Patient Education Materials: Acute Bronchitis (ED) Referrals: Germaine Rich MD [Primary Care Provider] - 4 Days (Keep your appointment as scheduled in 4 days for recheck of symptoms.) Additional Instructions: The x-ray performed in [facility] showed no evidence of pneumonia. Your history and exam are consistent with acute bronchitis with an exacerbation of your asthma. We will treat you with and antibiotic and steroid. Start azithromycin 250 mg 1 tab daily for the next 4 days starting tomorrow. We gave you the first dose of your antibiotic in the emergency room. Take prednisone 40 mg (2 tabs) daily for the next 4 days starting tomorrow. We gave her the first dose in the emergency room. Continue to use your albuterol inhaler corny directions as needed for any shortness of breath or wheezing. Get plenty of rest. Drink plenty of fluids. Run a cool mist humidifer in your room at night. Continue to use your cough syrup as directed. Follow up with your primary care provider in 4 days as scheduled. Seek immediate medical attention in the emergency room if you have fever greater than 100.5 F, have chest pain, difficulty breathing, or have any worsening of symptoms. - Billing Disposition and Condition Condition: STABLE Disposition: Home
[2018-10-06 23:20] VITALS: BP 125/90
== END 2018-10-06 23:20 | disposition home or self-care (01) ==
LOC: ED 19:23
DX: J20.9 Acute bronchitis, unspecified (principal); J45.909 Unspecified asthma, uncomplicated; R06.02 Shortness of breath; M54.5 Low back pain; E11.9 Type 2 diabetes mellitus without complications; I25.10 Atherosclerotic heart disease of native coronary artery without angina pectoris; I10 Essential (primary) hypertension; Z87.891 Personal history of nicotine dependence; K21.9 Gastro-esophageal reflux disease without esophagitis; N40.0 Benign prostatic hyperplasia without lower urinary tract symptoms
CPT/HCPCS: 71046; 99282; A9270-GY; J7512

== ENCOUNTER 2018-11-20 18:56 | Emergency (ER) | payer MEDICARE, MEDICAID ==
--- NOTE | 2018-11-20 19:26 | ED ---
Skin Complaint - HPI Summary HPI Summary: This pt is a 63 Y/O M presenting to [facility] with a CC of a rash to his R anterior willis that he states is getting progressively worse. He states that the rash is irritating and itchy. He states that he doesnt know where the rash came from but has progressively gotten worse since the initial onset. He states that it is not causing any pain. He also has no cough, SOB, CP, N/V/D, fevers, diaphoresis, and headaches. He states that he has had no alleviating or aggravating factors. He has a Hx of diabetes which he treats by watching his diet. - History of Current Complaint Chief Complaint: EDRashSkinAbscess Time Seen by Provider: 11/20/18 19:11 Stated Complaint: RT LEG RASH PER PT Hx Obtained From: Patient Onset/Duration: Started Days Ago - 2, Still Present, Worse Since - onset Skin Exposure Onset/Duration: Days Ago - 2 Timing: Constant Onset Severity: Mild Current Severity: Moderate Pain Intensity: 0 Pain Scale Used: 0-10 Numeric Skin Location: Generalized - R anterior willis Character: Redness Aggravating Symptom(s): Nothing Alleviating Symptom(s): Nothing Associated Signs & Symptoms: Negative - cough, SOB, CP, N/V/D, fevers, diaphoresis, and headaches, Rash - R anterior willis, described as itchy - Allergy/Home Medications Allergies/Adverse Reactions: Allergies Allergy/AdvReac Type Severity Reaction Status Date / Time bee venom protein (honey bee) Allergy Swelling Verified 11/20/18 19:00 celecoxib Allergy Nausea Verified 11/20/18 19:00 lithium Allergy Hives Verified 11/20/18 19:00 promethazine Allergy See Comment Verified 11/20/18 19:00 rivaroxaban [From Xarelto] Allergy See Comment Verified 11/20/18 19:00 PMH/Surg Hx/FS Hx/Imm Hx Previously Healthy: Yes Endocrine/Hematology History: Reports: Hx Diabetes - TYPE II- NO MEDICATION FOR Cardiovascular History: Reports: Hx Angina, Hx Atrial Fibrillation, Hx Coronary Artery Disease, Hx Hypercholesterolemia, Hx Hypertension - ON MEDICATION FOR, 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 Respiratory History: Reports: Hx Asthma - PRN INHALER Denies: Hx Chronic Obstructive Pulmonary Disease (COPD) GI History: Reports: Hx Gastroesophageal Reflux Disease - ON MEDICATION FOR Denies: Other GI Disorders History: Reports: Hx Benign Prostatic Hyperplasia, Hx Chronic Renal Failure, Hx Kidney Stones - LEFT 04/2015 Musculoskeletal History: Reports: Hx Arthritis - LOWER BACK, HIPS, HANDS, KNEES Denies: Other Musculoskeletal History Sensory History: Reports: Hx Cataracts - SKY, Hx Contacts or Glasses - GLASSES Denies: Hx Hearing Aid Opthamlomology History: Reports: Hx Cataracts - SKY, Hx Contacts or Glasses - GLASSES Neurological History: Reports: Hx Migraine - A CHILD, Other Neuro Impairments /Disorders - PERIPHERAL NEUROPATHY FEET AND HANDS Psychiatric History: Reports: Hx Anxiety, Hx Depression - HX OF STATES UNDER CONTROL, Hx Bipolar Disorder - Surgical History Surgery Procedure, Year, and Place: R inguinal hernia repair. cataract surgery when patient A YOUNG CHILD. KIDNEY STONE BLASTING-04/2015-[facility] – [place]. UMBILICAL HERNIA [id number]/2015 Hx Anesthesia Reactions: No Infectious Disease History: No Infectious Disease History: Denies: Traveled Outside the [place] in Last 30 Days - Family History Known Family History: Positive: Diabetes Negative: Renal Disease Family History: No FHx of malignant hyperthermia. No FHx of anesthesia reaction - Social History Occupation: Employed Part-time Lives: Alone Alcohol Use: None Hx Substance Use: No Substance Use Type: Reports: None Hx Tobacco Use: Yes Smoking Status (MU): Former Smoker Type: Cigarettes Amount Used/How Often: STATES ONLY SMOKED FOR ABOUT 1 MONTH Length of Time of Smoking/Using Tobacco: 1 MONTH Have You Smoked in the Last Year: No Review of Systems Negative: Fever, Skin Diaphoresis Negative: Chest Pain Negative: Shortness Of Breath, Cough Negative: Vomiting, Diarrhea, Nausea Positive: Rash - R anterior willis Negative: Headache All Other Systems Reviewed And Are Negative: No Physical Exam - Summary Physical Exam Summary: Appearance: Well-appearing, Well-nourished, lying in bed comfortably Skin: Rash, typical contact dermatitis rash on the R anterior leg over the willis. Stretches from above the ankle to about 6 inches below the knee Eyes: sclera anicteric, no conjunctival pallor ENT: mucous membranes moist, pharynx appears normal Neck: Supple, nontender Respiratory: no signs of respiratory distress Cardiovascular: Normal distal pulses in tibial and radial bilaterally. Abdomen: Soft, nontender, normal active bowel sounds present Musculoskeletal: Normal, Strength/ROM Intact Neurological: A&Ox3, awake and alert, mentation is normal, speech is fluent and appropriate Psychiatric: affect is normal, does not appear anxious or depressed Triage Information Reviewed: Yes Vital Signs On Initial Exam: Initial Vitals Temp Pulse Resp BP Pulse Ox 98.0 F 82 19 142/83 93 11/20/18 18:57 11/20/18 18:57 11/20/18 18:57 11/20/18 18:57 11/20/18 18:57 Vital Signs Reviewed: Yes Diagnostics - Vital Signs Vital Signs Temp Pulse Resp BP Pulse Ox 11/20/18 18:57 98.0 F 82 19 142/83 93 - Laboratory Lab Statement: Any lab studies that have been ordered have been reviewed, and results considered in the medical decision making process. Course/Dx - Course Course Of Treatment: This pt is a 63 Y/O M presenting to [facility] with a CC of a rash to his R anterior willis that he states is getting progressively worse. He states that the rash is irritating and itchy. Upon his PE he is found to have a Rash, typical contact dermatitis rash on the R anterior leg over the willis. Stretches from above the ankle to about 6 inches below the knee. He will be D/ C with a Dx of contact dermititis and given a perscription for prednisone 20 mg tablets and instructed to take a dose of 40mgs. - Diagnoses Provider Diagnoses: Contact dermatitis Discharge - Sign-Out/Discharge Documenting (check all that apply): Patient Departure - discharge Patient Received Moderate/Deep Sedation with Procedure: No - Discharge Plan Condition: Good Disposition: HOME Prescriptions: predniSONE [Prednisone 20 MG TAB] 40 mg PO DAILY #40 tablet Patient Education Materials: Poison Zunilda (ED) Referrals: Germaine Rich MD [Primary Care Provider] - - Billing Disposition and Condition Condition: GOOD Disposition: Home - Attestation Statements Document Initiated by Scribe: Yes Documenting Scribe: Lazarus Cancino Provider For Whom Aminta is Documenting (Include Credential): Calixto Simons MD Scribe Attestation: Lazarus Cutler, scribed for Calixto Simons MD on 11/21/18 at 0116. Scribe Documentation Reviewed: Yes Provider Attestation: The documentation as recorded by the Lazarus willis accurately reflects the service I personally performed and the decisions made by Calixto ty MD Status of Scribe Document: Viewed
[2018-11-20] MEDS ORDERED: predniSONE TAB* 20 MG PO ONE (19:27)
[2018-11-20 19:36] VITALS: BP 139/87
== END 2018-11-20 19:36 | disposition home or self-care (01) ==
LOC: ED 18:56
DX: L25.9 Unspecified contact dermatitis, unspecified cause (principal); E11.9 Type 2 diabetes mellitus without complications; I48.91 Unspecified atrial fibrillation; I25.10 Atherosclerotic heart disease of native coronary artery without angina pectoris; E78.00 Pure hypercholesterolemia, unspecified; I10 Essential (primary) hypertension; Z87.891 Personal history of nicotine dependence; Z79.899 Other long term (current) drug therapy; Z88.8 Allergy status to other drugs, medicaments and biological substances
CPT/HCPCS: 99282; J7512

== ENCOUNTER 2019-08-24 11:02 | Emergency (ER) | payer MEDICARE, MEDICAID ==
--- OUTSIDE RECORDS SUMMARY | 2019-08-24 11:14 | XMS REPORT | Continuity of Care Document ---
:1955 External Reference #:[id number] Author Name Katharina Woo M.D. (transmitted by agent of provider Melody Vences) Address [address] [place] [address] [address] [place] [address] Care Team Providers Name Role Phone Katharina Woo MD [facility] - Care Team Information High Reach Operator Cardiovascular Disease Toño Acuna MD - Gastroenterology Care Team Information High Reach Operator [facility] - Sleep Disorder Care Team Information High Reach Operator Diagnostic Roseanne Fulton MD - Surgery Care Team Information High Reach Operator Dahiana Schaefer M.D. - Surgery of Care Team Information High Reach Operator the Hand Kahlil Connor MD - Urology Care Team Information High Reach Operator [phone] Jaxon Rocha MD - Orthopaedic Care Team Information High Reach Operator [phone] Surgery Marge Castaneda MD - Care Team Information High Reach Operator [phone] Dermatology Germaine Rich M.D. - Family Medicine Care Team Information High Reach Operator [phone] Meliad Ortega MD - Sports Medicine Care Team Information High Reach Operator Problems Active Problems Provider Date Chronic atrial fibrillation Katharina Woo M.D. Onset: 04/07/2015 Note: not anticoagulated due to lower GI bleed, patient refusal Bipolar disorder Kin Steele M.D.,FACP Onset: 05/01/2007 Malignant essential hypertension Katharina Woo M.D. Onset: 2013 Gastroesophageal reflux disease Jasmine Bryant PA Onset: 05/23/2007 Benign hypertensive renal disease Kin Steele M.D.,FACP Onset: 2008 Type 2 diabetes mellitus Kin Steele M.D.,FACP Onset: 08/24/2010 Note: diet control Conduction disorder of the heart Katharina Woo M.D. Onset: 2013 Mixed hyperlipidemia Katharina Woo M.D. Onset: 05/21/2013 Coronary arteriosclerosis Katharina Woo M.D. Onset: 07/10/2013 Bleeding diverticulosis Kin Steele M.D.,FACP Onset: 01/30/2014 Note: interferes w/ anticoagulation Intrinsic asthma without status Sam Cabrera M.D. Onset: 10/21/2014 asthmaticus Low back pain Sam Cabrera M.D. 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 Onset: 07/31/2015 Primary gout Kin Steele M.D.,[facility] Onset: 06/02/2018 Social History Type Date Description Comments Sex Unknown ETOH Use 01/26/2018 Denies alcohol use ETOH Use Consumes 1 six pack of quit years ago beer per day Recreational Drug Use Denies Drug Use Tobacco Use Start: Unknown Patient has never smoked Smoking Status Reviewed: 07/30/19 Patient has never smoked Exercise Type/Frequency Exercises regularly Allergies, Adverse Reactions, Alerts Active Allergies Reaction Severity Comments Date Naproxen esophageal ulcer 05/01/2007 Phenergan 05/01/2007 lithium 05/01/2007 Celebrex nausea 05/21/2013 Xarelto GI bleed ( lower GI tract ) 07/15/2016 Honey Bee Venom 02/01/2017 Metoprolol Diarrhea, Nausea 06/28/2019 Medications Active Medications SIG Qnty Indications Ordering Date Provider Cardizem 1 by mouth every 90tabs I49.3 Agatha Jose, 06/28/2019 120mg Tablets day [employer] WORK[employer] Norvasc 1 by mouth every 90tabs Agatha Damon, 06/21/2019 5mg Tablets day [employer]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 dx e11.9 Proair HFA 2 puffs every 4 17gm Germaine Rich MD 01/30/2019 108(90Base) hours as needed mcg/Act Aerosol Colchicine 1 tab PO prn 30caps Germaine Rich MD 12/18/2018 0.6mg Capsules Losartan 1 by mouth every 90tabs I10 Josh Galicia NP 10/10/2018 Potassium/Hydrochloro day thiazide 50-12.5mg Tablets Omeprazole 1 by mouth every 90caps Josh Galicia NP 09/20/[address] Kandi Danielson take one 90tabs Germaine Rich MD 09/20/2018 100mg capsule/tablet Tablets daily by mouth Accu-Chek Softclix use with blood 100units Kerline Gordon MD 08/15/2018 Lancets glucose testing [facility] test twice daily Vitamin B-6 take 1 tab daily 90tabs Germaine Rich MD 03/16/2017 100mg Tablets Arnuity Ellipta 1 puff inhaled 30units Kin Felton 05/12/2016 every day Melissa Steele,FACP 100mcg/Act Aerosol Hydrocodone-Acetamino 2 tabs Q 8 hours 120tabs Sam 11/07/2015 phen as needed pain Melissa Cabrera 7.5-325mg Tablets Lovastatin take 1 tablet at 90tabs E11.9 Josh Galicia NP 01/22/2015 20mg Tablets bedtime mdd 1 Aspirin 1 by mouth every I48.2 Kin Felton 01/30/2014 81mg Tablets day Melissa Steele,FACP Dok take 2 capsules 60caps Josh Galicia NP 01/16/2013 100mg Capsules at bedtime as needed Citalopram 1 by mouth every 90tabs Josh Galicia NP 02/21/2009 Hydrobromide day 40mg Tablets Nasonex 1 spray each 17gm Lucy Chase, 05/01/2007 50mcg/Act nostril every M.D., FACP Suspension day as needed Multivitamins 1 capsule lester;y 30caps Unknown Capsules Tamsulosin HCL 1 po qd 90caps Unknown 0.4mg Capsules Benadryl 1 po, prn 30caps Unknown 25mg Capsules Gabapentin 1 tab by mouth 360caps Josh Galicia NP 300mg 4x/day Capsules Pharmacist Choice Unknown Ultra Thin Lancets 31G 31G Misc Accu-Chek Vivi Plus Unknown w/Device Kit Melatonin 1 tab by mouth Unknown 10mg Capsules at bedtime as needed for insomnia History Medications Metoprolol Succinate 1 by mouth every 90tabs Agatha Jose NP 2019 - ER day 06/27/2019 25mg Tablets ER 24HR Medications Administered in Office Medication SIG Qnty Indications Ordering Provider Date [facility] administered Unknown 07/29/2018 Injection Depomedrol 40MG Priyank Lopez M.D. 11/23/2017 Injection Depomedrol 40MG González Rodriguez MD 07/21/2017 Injection Influenza,Unspecified Unknown 12/22/2016 Injection Technetium TC 99M Tetrofosmin, Irving Alicea M.D. 05/07/2016 Per Unit Dose Up To 40 Millicuries Injection Immunizations CPT Code Status Date Vaccine Reaction Lot # [id number] Given 06/14/2019 Pneumonia Vaccine No immediate reaction [id number] 68575 Given 03/29/2019 Influenza Virus Vaccine, Quadrivalent, Split, Im Use 6-35mo 52906 Given 04/12/2018 Zoster (Shingles) Vaccine (HZV), Recombinant, Subunit, Adjuvanted 14335 Given 01/21/2018 Influenza Virus Vaccine, Quadrivalent, Split, Preservative Free Q2035 Given 01/16/2016 Afluria Vaccine 99533 Given 01/04/2016 Flu Vaccine Split Virus Preservative Free For Indiv 3Yr Older 90739 Given 01/22/2015 Pneumococcal Conjugate [id number] Vaccine 13 Valent For Intramuscular Use Q2035 Given 01/03/2015 Afluria Vaccine Q2037 Given 01/30/2014 Fluvirin Im 3Yrs And Older 63333 Given 01/30/2014 Influenza Virus Vaccine, [id number] Quadrivalent, Split, Preservative Free 92884 Given 09/21/2013 Zoster (Zostavax) [id number] 40162 Given 01/20/2013 Influenza Virus 3Yrs & Over Q2038 Given 01/10/2012 Fluzone Vaccine 95796 Given 03/26/2011 Influenza Virus 3Yrs & Over 08439 Given 03/27/2010 Pneumonia Vaccine 39064 Given 03/27/2010 Pneumonia Vaccine [id number] 60155 Given 02/28/2010 Influenza Virus 3Yrs & Over 58171 Given 02/21/2009 Influenza Virus 3Yrs & [id number] Over 26503 Given 02/22/2008 Influenza Virus 3Yrs & [id number] Over 06480 Given 11/14/2007 Tetanus And Diptheria (Td) For Adult Use Preservative Free 98412 Given 03/16/2007 Influenza Virus 3Yrs & Over 82564 Given 03/16/2007 Influenza Virus 3Yrs & Over 71359 Given 03/16/2007 Influenza Virus 3Yrs & [id number] Over 53182 Given 02/13/1981 Hepatitis B Vaccine Adult Dosage 23582 Given 10/14/1980 Hepatitis B Vaccine Adult Dosage 78773 Given 05/16/1980 Hepatitis B Vaccine Adult Dosage 20036 Ordered 01/14/2015 Flu Vaccine Split Virus Preservative Free For Indiv 3Yr Older Vital Signs Date Vital Result Comment 07/30/2019 12:47pm Height 66.5 inches 5'6.50" Weight 224.00 lb Heart Rate 91 /min BP Systolic Sitting 120 mmHg BP Diastolic Sitting 78 mmHg O2 % BldC Oximetry 96 % BMI (Body Mass Index) 35.6 kg/m2 Neck Circumference in inches 18 07/25/2019 4:04pm Height 66.5 inches 5'6.50" Weight 223.50 lb with/out shoes Heart Rate 64 /min R Radial irregular BP Systolic Sitting 136 mmHg Ule large cuff BP Diastolic Sitting 90 mmHg Ule large cuff BP Systolic Standing 144 mmHg Ule large cuff BP Diastolic Standing 90 mmHg Ule large cuff BMI (Body Mass Index) 35.5 kg/m2 Ejection Fraction EF 50-55% Echo 07/16/2019 Results Test Acquired Date Facility Test Result H/L Range Note CBC Auto 06/18/2019 [facility] White Blood 5.2 10^3/uL Normal 3.5-10.[address] [place] [address] [phone] Red Blood Count 4.52 10^6/uL Normal 4.18-5.48 Hemoglobin 14.5 g/dL Normal 14.0-18.0 Hematocrit 43 % Normal 42-52 Mean Corpuscular Volume 95 fL High 80-94 Mean Corpuscular Hemoglobin 32 pg High 27-31 Mean Corpuscular HGB Conc 34 g/dL Normal 31-36 Red Cell Distribution Width 14 % Normal 10-15 Platelet Count 225 10^3/uL Normal 150-450 Mean Platelet Volume 7.7 fL Normal 7.4-10.4 Abs Neutrophils 3.4 10^3/uL Normal 1.5-7.7 Abs Lymphocytes 1.1 10^3/uL Normal 1.0-4.8 Abs Monocytes 0.5 10^3/uL Normal 0-0.8 Abs Eosinophils 0.1 10^3/uL Normal 0-0.6 Abs Basophils 0.0 10^3/uL Normal 0-0.2 Abs Nucleated RBC 0.0 10^3/uL Granulocyte % 65.1 % Lymphocyte % 22.1 % Monocyte % 10.1 % Eosinophil % 2.3 % Basophil % 0.4 % Nucleated Red Blood Cells % 0.0 Laboratory 06/18/2019 [facility] TSH (Thyroid 0.55 Normal 0.34 -5.60 test finding [address] Stim Horm) mcIU/mL [place], [place] [id number] [phone] Vitamin B12 819 pg/mL Normal 180-914 1 Vitamin D Total 25(Oh) 25.7 ng/mL Normal 20-50 2 Comp Metabolic 05/18/2019 [facility] Sodium 140 mmol/L Normal 135-145 [address] [place] [address] [phone] Potassium 4.2 mmol/L Normal 3.5-5.0 Chloride 103 mmol/L Normal 101-111 Co2 Carbon Dioxide 28 mmol/L Normal 22-32 Anion Gap 9 mmol/L Normal 2-11 Glucose 129 mg/dL High 70-100 Blood Urea Nitrogen 15 mg/dL Normal 6-24 Creatinine 1.05 mg/dL Normal 0.67-1.17 BUN/Creatinine Ratio 14.3 Normal 8-20 Calcium 9.5 mg/dL Normal 8.6-10.3 Total Protein 7.0 g/dL Normal 6.4-8.9 Albumin 4.4 g/dL Normal 3.2-5.2 Globulin 2.6 g/dL Normal 2-4 Albumin/Globulin Ratio 1.7 Normal 1-3 Total Bilirubin 0.70 mg/dL Normal 0.2-1.0 Alkaline Phosphatase 78 U/L Normal 34-104 Alt 21 U/L Normal 7-52 Ast 23 U/L Normal 13-39 Egfr Non- 70.9 >60 Egfr 85.8 >60 4 Laboratory test 05/18/2019 [facility] Hemoglobin A1c 6.8 % High 4.0-5.6 5 finding 101 [facility] (Glyco HGB) [place] [address] [phone] Uric Acid 7.3 mg/dL Normal 4.4-7.6 6 Lipid Profile 05/18/2019 [facility] Triglycerides 188 mg/dL 7 (Trig/Chol/HDL) [address] [place] [address] [phone] Cholesterol 138 mg/dL 8 HDL Cholesterol 43.1 mg/dL 9 LDL Cholesterol 57 mg/dL 10 Urine Microalbumin 05/18/2019 [facility] Ur Microalbumin 17.8 mg /L [facility] (mg/L) [place] [address] [phone] Urine Creatinine 153.32 mg/dL Urine Microalbumin/Creatinine 11.6 Normal <31 Laboratory test 05/18/2019 [facility] PSA Diagnostic 1.064 ng/ mL 0-4.0 11 finding [address] [place] [address] [phone] 1 Normal Range 180 to 914 Indeterminate Range 145 to 180 Deficient Range <145 2 Total 25-Hydroxyvitamin D2 and D3 (25-OH-VitD) <10 ng/mL (severe deficiency) 10-19 ng/mL (mild to moderate deficiency) 20-50 ng/mL (optimum levels) 51-80 ng/mL (increased risk of hypercalciuria) >80 ng/mL (toxicity possible) 3 FASTING 4 Because ethnic data is not always readily available, this report includes an eGFR for both -Americans and non- Americans. The National Kidney Disease Education Program (NKDEP) does not endorse the use of the MDRD equation for patients that are not between the ages of 18 and 70, are , have extremes of body size, muscle mass, or nutritional status, or are non- or non-. According to the National Kidney Foundation, irrespective of diagnosis, the stage of the disease is based on the level of kidney function: Stage Description GFR(mL/min/1.73 m(2)) 1 Kidney damage with normal or decreased GFR 90 2 Kidney damage with mild decrease in GFR 60-89 3 Moderate decrease in GFR 30-59 4 Severe decrease in GFR 15-29 5 Kidney failure <15 (or dialysis) 5 Therapeutic target for the treatment of diabetes mellitus patients is <7% HBA1C, and in selective patients <6.0%. Please refer to [place] Diabetes Association diabetic care guidelines for further information. 6 FASTING 7 Desirable: <150 Borderline High: 150-199 High: 200-499 Very High: >500 8 Desirable: <200 Borderline High: 200-239 High: >239 9 Low: <40 Desirable: 40-60 High: >60 10 Desirable: <100 Near Optimal: 100-129 Borderline High: 130-159 High: 160-189 Very High: >189 11 Serum levels of PSA measured using the [employer] 27 Perry DXI Hybritech immunoassay should not be interpreted as absolute evidence of the presence or absence of disease. The PSA value should be used in conjunction with other pertinent clinical diagnostic procedures. The values obtained with different assay methods or kits cannot be used interchangeably. Procedures Date Code Description Status 07/19/2019 322021572 Diabetic Retinal Eye Exam Completed 07/19/2019 40192 Holter Monitor Review (24 hr)dr jackson & little only Completed 07/17/2019 97154 ECG Monitor/Recording W/Visual Superimposition Completed Scanning 07/17/2019 69274 ECG Monitor/Recording W/Visual Superimposition Completed Scanning 07/16/2019 85870 ECHO Transthoracic, Real-Time 2D With Doppler And Completed Color Flow 07/16/2019 76850 ECHO Transthoracic, Real-Time 2D With Doppler And Completed Color Flow 06/19/2019 08809 Holter Monitor Review (24 hr)dr jackson & little only Completed 06/18/2019 03044 ECG Monitor/Recording W/Visual Superimposition Completed Scanning 06/18/2019 58484 ECG Monitor/Recording W/Visual Superimposition Completed Scanning 06/15/2019 28455 EKG Tracing & Interpretation Completed 07/18/2018 [id number] Diabetic Retinal Eye Exam Completed 09/09/2017 074541262 Diabetic Retinal Eye Exam Completed 2016 [id number] Diabetic Retinal Eye Exam Completed 09/08/2015 910063234 Diabetic Retinal Eye Exam Completed 08/05/2014 [id number] Diabetic Retinal Eye Exam Completed 01/02/2014 [id number] Colonoscopy Completed 07/16/2013 [id number] Diabetic Retinal Eye Exam Completed 04/15/2013 [id number] Diabetic Retinal Eye Exam Completed 04/04/2012 979968212 Diabetic Retinal Eye Exam Completed 10/01/2003 [id number] Colonoscopy Completed Medical Devices Description No Information Available Encounters Type Date Location Provider Dx Diagnosis Office Visit 07/25/2019 [facility] Katharina Min I49.3 Ventricular premature 4:20p Melissa Woo depolarization I48.91 Unspecified atrial fibrillation I77.810 Thoracic aortic ectasia I48.21 Permanent atrial fibrillation I10 Essential (primary) hypertension E78.5 Hyperlipidemia, unspecified E66.9 Obesity, unspecified Office Visit 06/28/2019 2:20p [facility] I48.21 Permanent atrial Thuman, PIECE WORKER fibrillation I10 Essential (primary) hypertension E78.5 Hyperlipidemia, unspecified I77.819 Aortic ectasia, unspecified site I49.3 Ventricular premature depolarization Office Visit 06/15/2019 2:00p [facility] I48.21 Permanent atrial Thuman, PIECE WORKER fibrillation R53.83 Other fatigue I77.819 Aortic ectasia, unspecified site I27.20 Pulmonary hypertension, unspecified Assessments Date Code Description Provider 07/30/2019 G47.9 Sleep disorder, unspecified Maribel Mclain MD 07/30/2019 G47.33 Obstructive sleep apnea (adult) Maribel Mclain MD (pediatric) 07/25/2019 I49.3 Ventricular premature depolarization Katharina Woo M.D. 07/25/2019 I48.91 Unspecified atrial fibrillation Katharina Woo M.D. 07/25/2019 I77.810 Thoracic aortic ectasia Katharina Woo M.D. 07/25/2019 I48.21 Permanent atrial fibrillation Katharina Woo M.D. 07/25/2019 I10 Essential (primary) hypertension Katharina Woo M.D. 07/25/2019 E78.5 Hyperlipidemia, unspecified Katharina Woo M.D. 07/25/2019 E66.9 Obesity, unspecified Katharina Woo M.D. 07/19/2019 I49.3 Ventricular premature depolarization Katharina Woo M.D. 07/19/2019 I48.91 Unspecified atrial fibrillation Katharina Woo M.D. 07/17/2019 I49.3 Ventricular premature depolarization Katharina Woo M.D. 07/17/2019 I49.3 Ventricular premature depolarization Nurse Visit cc 07/17/2019 I48.91 Unspecified atrial fibrillation Katharina Woo M.D. 07/17/2019 I48.91 Unspecified atrial fibrillation Nurse Visit cc 07/16/2019 I77.810 Thoracic aortic ectasia Katharina Woo M.D. 07/16/2019 I77.810 Thoracic aortic ectasia [place] 07/16/2019 I48.21 Permanent atrial fibrillation Katharina Woo M.D. 07/16/2019 I48.21 Permanent atrial fibrillation [place] [facility] Schedule 07/16/2019 I10 Essential (primary) hypertension Katharina Woo M.D. 07/16/2019 I10 Essential (primary) hypertension [place] [facility] Schedule 07/16/2019 I77.819 Aortic ectasia, unspecified site Katharina Woo M.D. 07/16/2019 I77.819 Aortic ectasia, unspecified site [facility] Schedule 06/28/2019 I48.21 Permanent atrial fibrillation Agatha Jose, PIECE WORKER 06/28/2019 I10 Essential (primary) hypertension Agatha Jose, PIECE WORKER 06/28/2019 E78.5 Hyperlipidemia, unspecified Agatha Jose, PIECE WORKER 06/28/2019 I77.819 Aortic ectasia, unspecified site Agatha Jose, PIECE WORKER 06/28/2019 I49.3 Ventricular premature depolarization Agatha Jose, DINA 06/19/2019 I48.21 Permanent atrial fibrillation Katharina Woo M.D. 06/19/2019 I49.3 Ventricular premature depolarization Katharina Woo M.D. 06/18/2019 I48.21 Permanent atrial fibrillation Katharina Woo M.D. 06/18/2019 I48.21 Permanent atrial fibrillation Nurse Visit cc 06/18/2019 I49.3 Ventricular premature depolarization Katharina Woo M.D. 06/18/2019 I49.3 Ventricular premature depolarization Nurse Visit cc 06/15/2019 I48.21 Permanent atrial fibrillation [place] M.D. 06/15/2019 I48.21 Permanent atrial fibrillation Agatha Jose NP 06/15/2019 I49.3 Ventricular premature depolarization [place] M.D. 06/15/2019 R53.83 Other fatigue Agatha Jose NP 06/15/2019 R94.31 Abnormal electrocardiogram [ECG] [EKG] [place] M.D. 06/15/2019 I77.819 Aortic ectasia, unspecified site Agathaluisa Jose, DINA 06/15/2019 I27.20 Pulmonary hypertension, unspecified Agatha Jose NP 06/14/2019 Z00.00 Encounter for general adult medical Josh Galicia NP examination without abnormal findings 06/14/2019 E11.9 Type 2 diabetes mellitus without Joshrufus Galicia, DINA complications 06/14/2019 I10 Essential (primary) hypertension Josh Galicia NP 06/14/2019 I48.20 Chronic atrial fibrillation, Josh Galicia NP unspecified 06/14/2019 E78.2 Mixed hyperlipidemia Josh Galicia NP 06/14/2019 R53.83 Other fatigue Josh Galicia NP 06/14/2019 Z23 Encounter for immunization Josh Galicia NP 06/14/2019 J45.20 Mild intermittent asthma, Josh Galicia NP uncomplicated Plan of Treatment Future Appointment(s):08/17/2019 1:00 pm - Dahiana Joe PIECE WORKER at [facility]09/05/2019 10:30 am - Nurse Visit cc at [place] Rnfknsldwo80/21/2020 12:00 pm - Nurse Visit cc at [facility] Coozknhayd70/31/ 2020 10:40 am - Germaine Rich MD at [facility] Internal Medicine - [facility]07/30/2019 - Maribel Mclain MDG47.9 Sleep disorder, unspecifiedNew Orders:Home Sleep Testing , Ordered: 07/30/19Follow up:2 oyvowS53.33 Obstructive sleep apnea (adult) ( pediatric) Functional Status Description No Information Available Mental Status Description No Information Available Referrals Refer to Dr Reason for Referral Status Appt Date Matteo Perkins MD Sent [address] [place], [place] [id number] [phone] Maribel Mclain MD Sent 07/30/[address] [place] [address] [phone]
--- OUTSIDE RECORDS SUMMARY | 2019-08-24 11:14 | XMS REPORT | Continuity of Care Document ---
:1955 External Reference #:[id number] Author Name Agatha Jose NP (transmitted by agent of provider Lynn Freire) Address [address] [place] [address] Care Team Providers Name Role Phone Katharina Woo MD [facility] - Care Team Information Hat Forming Machine Operator [phone] Cardiovascular Disease Toño Acuna MD - Gastroenterology Care Team Information Hat Forming Machine Operator [facility] - Sleep Disorder Care Team Information Hat Forming Machine Operator [phone] Diagnostic Roseanne Fulton MD - Surgery Care Team Information Hat Forming Machine Operator Dahiana Schaefer M.D. - Surgery of Care Team Information Hat Forming Machine Operator the Hand Kahlil Connor MD - Urology Care Team Information Hat Forming Machine Operator [phone] Jaxon Rocha MD - Orthopaedic Care Team Information Hat Forming Machine Operator Surgery Marge Castaneda MD - Care Team Information Hat Forming Machine Operator [phone] Dermatology Germaine Rich M.D. - Family Medicine Care Team Information Hat Forming Machine Operator [phone] Melida Ortega MD - Sports Medicine Care Team Information Hat Forming Machine Operator Problems Active Problems Provider Date Chronic [...] M.D. Onset: 07/31/2015 Primary gout Kin Steele M.D.,[facility] Onset: 06/02/2018 Social History Type Date Description Comments Sex Unknown Tobacco Use Start: Unknown End: Former Cigarette Smoker one month only Unknown Cigarette Use Pack Years - 01 ETOH Use 01/26/2018 Denies alcohol use ETOH Use Consumes 1 six pack of quit years ago beer per day Recreational Drug Use Denies Drug Use Tobacco Use Start: Unknown Patient has never smoked Smoking Status Reviewed: 06/28/19 Patient has never smoked Exercise Type/Frequency Exercises [...] I49.3 Agatha Jose, 06/28/2019 120mg Tablets day CHOCOLATE PACKER Norvasc 1 by mouth every 90tabs Agatha Jose, 06/21/2019 5mg Tablets day CHOCOLATE P[employer]ER Accu-Check Vivi Chem check blood 100units E11.9 Lucy Chase, 02/02/2019 Strips sugars twice a M.D., F[facility] e11.9 Proair HFA 2 puffs [...] mouth Accu-Chek Softclix use with blood 100units Germaine Rich MD 08/15/2018 Lancets glucose testing [facility] test twice daily Vitamin B-6 take 1 [...] Melissa Steele,FACP Dok take 2 capsules 60caps Kerline Gordon MD 01/16/2013 100mg Capsules at bedtime as needed [...] Medication SIG Qnty Indications Ordering Provider Date [facility] pharmacy administered Unknown 07/29/2018 Injection Depomedrol 40MG Priyank Lopez M.D. 11/23/2017 Injection Depomedrol 40MG González Rodriguez MD 07/21/2017 Injection Influenza,Unspecified Unknown 12/22/2016 Injection Technetium TC 99M TetrofosmIrving solomon M.D. 05/07/2016 Per Unit Dose Up To 40 Millicuries Injection Immunizations CPT Code Status Date Vaccine Reaction Lot # [id number] Given 06/14/2019 Pneumonia Vaccine No immediate reaction [id number] 52858 Given 03/29/2019 Influenza Virus Vaccine, Quadrivalent, Split, Im Use 6-35mo 67942 Given 04/12/2018 Zoster (Shingles) Vaccine (HZV), Recombinant, Subunit, Adjuvanted 50660 Given 01/21/2018 Influenza Virus Vaccine, Quadrivalent, Split, Preservative Free Q2035 Given 01/16/2016 Afluria Vaccine 83627 Given 01/04/2016 Flu Vaccine Split Virus Preservative Free For Indiv 3Yr Older 19118 Given 01/22/2015 Pneumococcal Conjugate [id number] Vaccine 13 Valent For Intramuscular Use Q2035 Given 01/03/2015 Afluria Vaccine Q2037 Given 01/30/2014 Fluvirin Im 3Yrs And Older 37112 Given 01/30/2014 Influenza Virus Vaccine, [id number] Quadrivalent, Split, Preservative Free 65234 Given 09/21/2013 Zoster (Zostavax) [id number] 09407 Given 01/20/2013 Influenza Virus 3Yrs & Over Q2038 Given 01/10/2012 Fluzone Vaccine 30263 Given 03/26/2011 Influenza Virus 3Yrs & Over 54361 Given 03/27/2010 Pneumonia Vaccine 10996 Given 03/27/2010 Pneumonia Vaccine [id number] 48294 Given 02/28/2010 Influenza Virus 3Yrs & Over 85880 Given 02/21/2009 Influenza Virus 3Yrs & [id number] Over 16098 Given 02/22/2008 Influenza Virus 3Yrs & [id number] Over 22572 Given 11/14/2007 Tetanus And Diptheria (Td) For Adult Use Preservative Free 21120 Given 03/16/2007 Influenza Virus 3Yrs & Over 99661 Given 03/16/2007 Influenza Virus 3Yrs & Over 24638 Given 03/16/2007 Influenza Virus 3Yrs & [id number] Over 46963 Given 02/13/1981 Hepatitis B Vaccine Adult Dosage 09533 Given 10/14/1980 Hepatitis B Vaccine Adult Dosage 23153 Given 05/16/1980 Hepatitis B Vaccine Adult Dosage 32838 Ordered 01/14/2015 Flu Vaccine Split Virus Preservative Free For Indiv 3Yr Older Vital Signs Date Vital Result Comment 06/28/2019 1:49pm Height 66.5 inches 5'6.50" Weight 225.38 lb without shoes Heart Rate 70 /min left radial BP Systolic Sitting 140 mmHg ule reg cuff BP Diastolic Sitting 84 mmHg ule reg cuff BP Systolic Standing 146 mmHg ule reg cuff BP Diastolic Standing 80 mmHg ule reg cuff BMI (Body Mass Index) 35.8 kg/m2 Ejection Fraction 50-55% Echo 11/11/17 06/15/2019 12:52pm Height 66.5 inches 5'6.50" Weight 231.25 lb without shoes Heart Rate 74 /min left radial irreg BP Systolic Sitting 110 mmHg Lue, reg cuff BP Diastolic Sitting 66 mmHg Lue, reg cuff BMI (Body Mass Index) 36.8 kg/m2 Ejection Fraction 62% nuclear lexiscan myoview 08/10/18 Results Test Acquired Date Facility Test Result H/L Range Note CBC Auto 06/18/2019 [facility] White Blood 5.2 10^3/uL Normal 3.5-10.[address] [place] [address] [phone] Red Blood Count 4.52 10^6/uL Normal 4.18-5.48 [...] Red Blood Cells % 0.0 Laboratory 06/18/2019 [facility] TSH (Thyroid 0.55 Normal 0.34 -5.60 test finding [address] Stim Horm) mcIU/[place] [address] [phone] Vitamin B12 819 pg/mL Normal 180-914 1 Vitamin D Total 25(Oh) 25.7 ng/mL Normal 20-50 2 Comp Metabolic 05/18/2019 [facility] Sodium 140 mmol/L Normal 135-145 [address] [place] [address] [phone] Potassium 4.2 mmol/L Normal 3.5-5.0 Chloride 103 [...] Egfr 85.8 >60 4 Laboratory test 05/18/2019 [facility] Hemoglobin A1c 6.8 % High 4.0-5.[address] (Glyco HGB) [place] [address] [phone] Uric Acid 7.3 mg/dL Normal 4.4-7.6 6 Lipid Profile 05/18/2019 [facility] Triglycerides 188 mg/dL 7 (Trig/Chol/HDL) [address] [place] [address] [phone] Cholesterol 138 mg/dL 8 HDL Cholesterol 43.1 mg/dL 9 LDL Cholesterol 57 mg/dL 10 Urine Microalbumin 05/18/2019 [facility] Ur Microalbumin 17.8 mg /L Random [address] (mg/L) [place] [address] [phone] Urine Creatinine 153.32 mg/dL Urine Microalbumin/Creatinine 11.6 Normal <31 Laboratory test 05/18/2019 [facility] PSA Diagnostic 1.064 ng/ mL 0-4.0 [address] [place] [address] [phone] 1 Normal Range 180 to 914 Indeterminate [...] in selective patients <6.0%. Please refer to [place] [employer] diabetic care guidelines for further information. 6 FASTING 7 Desirable: <150 Borderline High: 150-199 High: 200-499 Very High: >500 8 Desirable: <200 Borderline High: 200-239 High: >239 9 Low: <40 Desirable: 40-60 High: >60 10 Desirable: <100 Near Optimal: 100-129 Borderline High: 130-159 High: 160-189 Very High: >189 11 Serum levels of PSA measured using the Saqib STinser DXI Hybritech immunoassay should not be interpreted as absolute evidence of the presence or absence of disease. The PSA value should be used in conjunction with other pertinent clinical diagnostic procedures. The values obtained with different assay methods or kits cannot be used interchangeably. Procedures Date Code Description Status 06/19/2019 74962 Holter Monitor Review (24 hr)dr review & interp only Completed 06/18/2019 07565 ECG Monitor/Recording W/Visual Superimposition Completed Scanning 06/18/2019 61312 ECG Monitor/Recording W/Visual Superimposition Completed Scanning 06/15/2019 73613 EKG Tracing & Interpretation Completed 07/18/2018 858348564 Diabetic Retinal Eye Exam Completed 09/09/2017 072221379 Diabetic Retinal Eye Exam Completed 2016 [id number] Diabetic Retinal Eye Exam Completed 09/08/2015 823586681 Diabetic Retinal Eye Exam Completed 08/05/2014 062842400 Diabetic Retinal Eye Exam Completed 01/02/2014 99034107 Colonoscopy Completed 07/16/2013 398173861 Diabetic Retinal Eye Exam Completed 04/15/2013 783021217 Diabetic Retinal Eye Exam Completed 04/04/2012 409122179 Diabetic Retinal Eye Exam Completed 10/01/2003 13630067 Colonoscopy Completed Medical Devices Description No Information Available Encounters Type Date Location Provider Dx Diagnosis Office Visit 06/15/2019 [facility] Agatha Jose, I48.21 Permanent atrial 2:00p CHOCOLATE PACKER fibrillation R53.83 Other fatigue I77.819 Aortic ectasia, unspecified site I27.20 Pulmonary hypertension, unspecified Assessments Date Code Description Provider 06/28/2019 I48.21 Permanent atrial fibrillation Agatha Jose NP 06/28/2019 I10 Essential (primary) hypertension Agatha Jose NP 06/28/2019 E78.5 Hyperlipidemia, unspecified Agatha Jose NP 06/28/2019 I77.819 Aortic ectasia, unspecified site Agatha Jose NP 06/28/2019 I49.3 Ventricular premature depolarization Agatha Jose NP 06/19/2019 I48.21 Permanent atrial fibrillation Katharina Woo [...] M.D. 06/15/2019 I77.819 Aortic ectasia, unspecified site Agatha Jose NP 06/15/2019 I27.20 Pulmonary hypertension, unspecified Agatha Jose NP 06/14/2019 Z00.00 Encounter for general adult medical Josh Galicia NP examination without abnormal findings 06/14/2019 E11.9 Type 2 diabetes mellitus without Josh Galicia NP complications 06/14/2019 I10 Essential (primary) hypertension Joshrufus Galicia NP 06/14/2019 I48.20 Chronic atrial fibrillation, Jsoh Galicia NP unspecified 06/14/2019 E78.2 Mixed hyperlipidemia Josh Galicia NP 06/14/2019 R53.83 Other fatigue Josh Galicia NP 06/14/2019 Z23 Encounter for immunization Josh Galicia NP 06/14/2019 J45.20 Mild intermittent asthma, Josh Galicia NP uncomplicated Plan of Treatment Future Appointment(s):07/18/2019 1:30 pm - Nurse Visit cc at [facility]07/17/2019 3:00 pm - Nurse Visit cc at [facility]07/25/2019 4 :20 pm - Katharina Woo M.D. at [facility]07/30/2019 1:00 pm - Maribel Mclain MD at [facility]07/16/2019 11:00 am - [place] E[facility] Schedule at [facility]12/14/2019 10:40 am - Germaine Rich MD at [facility] Internal Medicine - [facility]06/28/2019 - Agatha Jose NPI48.21 Permanent atrial fibrillationFollow up:follow up with Dr. Woo after your echo.I10 Essential (primary) hypertensionRecommendations:Stay on Norvasc 5 mg by mouth a day If your blood pressure is consistently more than 130/80 we may need to increase Norvac. The new medication called Cardizem will help reduce your blood pressure but also reduce your premature beats. We will repeat a 24 hour holter in 4 weeks to reassess the premature to ensure they are responding to FzexwgjpL07.5 Hyperlipidemia, lneqnfkcggrQ76.819 Aortic ectasia, unspecified siteI49.3 Ventricular premature depolarizationNew Medication:Cardizem 120 mg - 1 by mouth every dayNew Orders:Holter Monitor, Ordered: 06/28/19 Functional Status Description No Information Available Mental Status Description No Information Available Referrals Refer to Dr Reason for Referral Status Appt Date Matteo Perkins MD Sent [address] [place] [address] [phone] Maribel Mclain MD Sent 07/30/[address] [place] [address] [phone]
--- OUTSIDE RECORDS SUMMARY | 2019-08-24 11:14 | XMS REPORT | Continuity of Care Document ---
:1955 External Reference #:[id number] Author Name Dahiana Joe, DINA Address [address], [address] [place] [address] Care Team Providers Name Role Phone Katharina Woo MD [facility] - Care Team Information Rubber Roller Grinder [phone] Cardiovascular Disease Toño Acuna MD - Gastroenterology Care Team Information Rubber Roller Grinder [phone] [facility] - Sleep Disorder Care Team Information Rubber Roller Grinder [phone] Diagnostic Roseanne Fulton MD - Surgery Care Team Information Rubber Roller Grinder Dahiana Schaefer M.D. - Surgery of Care Team Information Rubber Roller Grinder the Hand Kahlil Connor MD - Urology Care Team Information Rubber Roller Grinder [phone] Jaxon Rocha MD - Orthopaedic Care Team Information Rubber Roller Grinder Surgery Marge Castaneda MD - Care Team Information Rubber Roller Grinder [phone] Dermatology Germaine Rich M.D. - Family Medicine Care Team Information Rubber Roller Grinder [phone] Melida Ortega MD - Sports Medicine Care Team Information Rubber Roller Grinder Problems Active Problems Provider Date Chronic atrial fibrillation Katharina Woo M.D. Onset: 04/07/2015 Note: not anticoagulated due to lower GI bleed, patient refusal Bipolar disorder Kin Steele M.D.,[facility] Onset: 05/01/2007 Malignant essential hypertension Katharina Woo M.D. Onset: 2013 Gastroesophageal reflux disease Jasmine Bryant PA Onset: 05/23/2007 Benign hypertensive renal disease Kin Steele M.D.,[facility] Onset: 2008 Type 2 diabetes mellitus Kin Steele M.D.,[facility] Onset: 08/24/2010 Note: diet control Conduction disorder of the heart Katharina Woo M.D. Onset: 2013 Mixed hyperlipidemia Katharina Woo M.D. Onset: 05/21/2013 Coronary arteriosclerosis Katharina Woo M.D. Onset: 07/10/2013 Bleeding diverticulosis Kin Steele M.D.,[facility] Onset: 01/30/2014 Note: interferes w/ anticoagulation Intrinsic asthma without status Sam Cabrera M.D. Onset: 10/21/2014 asthmaticus Low back pain Sam Cabrera M.D. 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 Onset: 07/31/2015 Primary gout Kin Steele M.D.,[facility] Onset: 06/02/2018 Social History Type Date Description [...] Cardizem 1 by mouth every 90tabs I49.3 Formerly [facility], 06/28/2019 120mg Tablets day [employer] Norvasc 1 by mouth every 90tabs Agatha Jose, 06/21/2019 5mg Tablets day [employer] Accu-Check Vivi Chem check blood 100units E11.9 Lucy Chase, 02/02/2019 Strips sugars twice a M.D., FACP [facility] [place]. dx e11.9 Proair HFA 2 puffs [...] Kerline Gordon MD 08/15/2018 Lancets glucose testing [facility] [place] twice daily Vitamin B-6 take 1 [...] Tablets Nasonex 1 spray each 17gm Lucy Rena, 05/01/2007 50mcg/Act nostril every M.D., FACP Suspension [...] Medication SIG Qnty Indications Ordering Provider Date Shingrix pharmacy administered Unknown 07/29/2018 Injection Depomedrol 40MG Priyank Lopez M.D. 11/23/2017 Injection Depomedrol 40MG González Rodriguez MD 07/21/2017 Injection Influenza,Unspecified Unknown 12/22/2016 Injection Technetium TC 99M Tetrofosmin, Irving Alicea M.D. 05/07/2016 Per Unit Dose Up To 40 Millicuries Injection Immunizations CPT Code Status Date Vaccine Reaction Lot # [id number] Given 06/14/2019 Pneumonia Vaccine No immediate reaction [id number] 90230 Given 03/29/2019 Influenza Virus Vaccine, Quadrivalent, Split, Im Use 6-35mo 96851 Given 04/12/2018 Zoster (Shingles) Vaccine (HZV), Recombinant, Subunit, Adjuvanted 90917 Given 01/21/2018 Influenza Virus Vaccine, Quadrivalent, Split, Preservative Free Q2035 Given 01/16/2016 Afluria Vaccine 15243 Given 01/04/2016 Flu Vaccine Split Virus Preservative Free For Indiv 3Yr Older 43910 Given 01/22/2015 Pneumococcal Conjugate [id number] Vaccine 13 Valent For Intramuscular Use Q2035 Given 01/03/2015 Afluria Vaccine Q2037 Given 01/30/2014 Fluvirin Im 3Yrs And Older 69115 Given 01/30/2014 Influenza Virus Vaccine, [id number] Quadrivalent, Split, Preservative Free 15286 Given 09/21/2013 Zoster (Zostavax) [id number] 45325 Given 01/20/2013 Influenza Virus 3Yrs & Over Q2038 Given 01/10/2012 Fluzone Vaccine 09081 Given 03/26/2011 Influenza Virus 3Yrs & Over 02377 Given 03/27/2010 Pneumonia Vaccine 48970 Given 03/27/2010 Pneumonia Vaccine [id number] 90935 Given 02/28/2010 Influenza Virus 3Yrs & Over 65251 Given 02/21/2009 Influenza Virus 3Yrs & [id number] Over 54134 Given 02/22/2008 Influenza Virus 3Yrs & [id number] Over 51219 Given 11/14/2007 Tetanus And Diptheria (Td) For Adult Use Preservative Free 90476 Given 03/16/2007 Influenza Virus 3Yrs & Over 00561 Given 03/16/2007 Influenza Virus 3Yrs & Over 52987 Given 03/16/2007 Influenza Virus 3Yrs & [id number] Over 08003 Given 02/13/1981 Hepatitis B Vaccine Adult Dosage 17770 Given 10/14/1980 Hepatitis B Vaccine Adult Dosage 12280 Given 05/16/1980 Hepatitis B Vaccine Adult Dosage 34485 Ordered 01/14/2015 Flu Vaccine Split Virus Preservative Free For Indiv 3Yr Older Vital Signs Date Vital Result Comment 08/17/2019 12:38pm Height 66.5 inches 5'6.50" Weight 229.00 lb Heart Rate 98 /min BP Systolic Sitting 130 mmHg BP Diastolic Sitting 80 mmHg O2 % BldC Oximetry 96 % BMI (Body Mass Index) 36.4 kg/m2 07/30/2019 12:47pm Height 66.5 inches 5'6.50" Weight 224.00 lb Heart Rate 91 /min BP Systolic Sitting 120 mmHg BP Diastolic Sitting 78 mmHg O2 % BldC Oximetry 96 % BMI (Body Mass Index) 35.6 kg/m2 Neck Circumference in inches 18 Results Test Acquired Date Facility Test Result H/L Range Note CBC Auto 06/18/2019 [facility] White Blood 5.2 10^3/uL Normal 3.5-10.[address] [place] [address] [phone] Red Blood Count 4.52 10^6/uL Normal 4.18-5.48 [...] Red Blood Cells % 0.0 Laboratory 06/18/2019 [facility] TSH (Thyroid 0.55 Normal 0.34 -5.[address] Stim Horm) mcIU/[place] [address] [phone] Vitamin B12 819 pg/mL Normal 180-914 1 Vitamin D Total 25(Oh) 25.7 ng/mL Normal 20-50 2 Comp Metabolic 05/18/2019 [facility] Sodium 140 mmol/L Normal 135-145 3 Panel [address] [place] [address] [phone] Potassium 4.2 mmol/L Normal 3.5-5.0 Chloride 103 [...] Egfr 85.8 >60 4 Laboratory test 05/18/2019 [facility] Hemoglobin A1c 6.8 % High 4.0-5.6 5 finding [address] [facility] (Glyco HGB) [place] [address] [phone] Uric Acid 7.3 mg/dL Normal 4.4-7.6 6 Lipid Profile 05/18/2019 [facility] Triglycerides 188 mg/dL 7 (Trig/Chol/HDL) [address] [place] [address] [phone] Cholesterol 138 mg/dL 8 HDL Cholesterol 43.1 mg/dL 9 LDL Cholesterol 57 mg/dL 10 Urine Microalbumin 05/18/2019 [facility] Ur Microalbumin 17.8 mg /L Random [address] [facility] (mg/L) [place] [address] [phone] Urine Creatinine 153.32 mg/dL Urine Microalbumin/Creatinine 11.6 Normal <31 Laboratory test 05/18/2019 [facility] PSA Diagnostic 1.064 ng/ mL 0-4.0 11 finding [address] [place] [address] [phone] 1 Normal Range 180 to 914 Indeterminate [...] in selective patients <6.0%. Please refer to [place] [employer] diabetic care guidelines for further information. 6 FASTING 7 Desirable: <150 Borderline High: 150-199 High: 200-499 Very High: >500 8 Desirable: <200 Borderline High: 200-239 High: >239 9 Low: <40 Desirable: 40-60 High: >60 10 Desirable: <100 Near Optimal: 100-129 Borderline High: 130-159 High: 160-189 Very High: >189 11 Serum levels of PSA measured using the TOSA ([employer]) DXI Hybritech immunoassay should not be interpreted as absolute evidence of the presence or absence of disease. The PSA value should be used in conjunction with other pertinent clinical diagnostic procedures. The values obtained with different assay methods or kits cannot be used interchangeably. Procedures Date Code Description Status 07/19/2019 871566434 Diabetic Retinal Eye Exam Completed 07/19/2019 05431 Holter Monitor Review (24 hr)dr review & interp only Completed 07/17/2019 68021 ECG Monitor/Recording W/Visual Superimposition Completed Scanning 07/17/2019 80734 ECG Monitor/Recording W/Visual Superimposition Completed Scanning 07/16/2019 42139 ECHO Transthoracic, Real-Time 2D With Doppler And Completed Color Flow 07/16/2019 61976 ECHO Transthoracic, Real-Time 2D With Doppler And Completed Color Flow 06/19/2019 04518 Holter Monitor Review (24 hr)dr review & interp only Completed 06/18/2019 07071 ECG Monitor/Recording W/Visual Superimposition Completed Scanning 06/18/2019 58548 ECG Monitor/Recording W/Visual Superimposition Completed Scanning 06/15/2019 13251 EKG Tracing & Interpretation Completed 07/18/2018 677456647 Diabetic Retinal Eye Exam Completed 09/09/2017 790649244 Diabetic Retinal Eye Exam Completed 2016 183546244 Diabetic Retinal Eye Exam Completed 09/08/2015 266401211 Diabetic Retinal Eye Exam Completed 08/05/2014 880278243 Diabetic Retinal Eye Exam Completed 01/02/2014 87180556 Colonoscopy Completed 07/16/2013 243927286 Diabetic Retinal Eye Exam Completed 04/15/2013 713266784 Diabetic Retinal Eye Exam Completed 04/04/2012 586551125 Diabetic Retinal Eye Exam Completed 10/01/2003 72852648 Colonoscopy Completed Medical Devices Description No Information Available Encounters Type Date Location Provider Dx Diagnosis Office Visit 08/17/2019 Pulmonology [facility] Dahiana G47.33 Obstructive sleep 1:00p [facility] Joe apnea (adult) Student Support Services Director (pediatric) I49.9 Cardiac arrhythmia, unspecified E66.9 Obesity, unspecified Office Visit 07/30/2019 1:00p Pulmonology And Maribel G47.9 Sleep disorder, [facility] unspecified [facility] G47.33 Obstructive sleep apnea (adult) (pediatric) Office Visit 07/25/2019 [facility] Katharina SJillian I49.3 Ventricular 4:20p Cardiology Melissa Woo premature depolarization I48.91 Unspecified atrial fibrillation I77.810 Thoracic aortic ectasia I48.21 Permanent atrial fibrillation I10 Essential (primary) hypertension E78.5 Hyperlipidemia, unspecified E66.9 Obesity, unspecified Office Visit 06/28/2019 2:20p [facility] Agatha I48.21 Permanent atrial Thuman, [employer] fibrillation I10 Essential (primary) hypertension E78.5 Hyperlipidemia, unspecified I77.819 Aortic ectasia, unspecified site I49.3 Ventricular premature depolarization Office Visit 06/15/2019 2:00p [facility] I48.21 Permanent atrial Thuman, [employer] fibrillation R53.83 Other fatigue I77.819 Aortic ectasia, unspecified site I27.20 Pulmonary hypertension, unspecified Assessments Date Code Description Provider 08/17/2019 G47.33 Obstructive sleep apnea (adult) Dahiana Joe NP (pediatric) 08/17/2019 I49.9 Cardiac arrhythmia, unspecified Dahiana Joe NP 08/17/2019 E66.9 Obesity, unspecified Dahiana Joe NP 07/30/2019 G47.9 Sleep disorder, unspecified Maribel Mclain [...] Woo M.D. 07/16/2019 I77.810 Thoracic aortic ectasia [place] [facility] Schedule 07/16/2019 I48.21 Permanent atrial fibrillation Katharina Woo M.D. 07/16/2019 I48.21 Permanent atrial fibrillation [place] [facility] Schedule 07/16/2019 I10 Essential (primary) hypertension Katharina Woo M.D. 07/16/2019 I10 Essential (primary) hypertension [place] [facility] Schedule 07/16/2019 I77.819 Aortic ectasia, unspecified site Katharina Woo M.D. 07/16/2019 I77.819 Aortic ectasia, unspecified site [place] [facility] Schedule 06/28/2019 I48.21 Permanent atrial fibrillation Agatha Thnorma, [employer] 06/28/2019 I10 Essential (primary) hypertension Agatha Enmauman, [employer] OFF[employer]ER 06/28/2019 E78.5 Hyperlipidemia, unspecified Agatha Thuman, [employer] OFF[employer] 06/28/2019 I77.819 Aortic ectasia, unspecified site Agatha Thuman, [employer] OFF[employer] 06/28/2019 I49.3 Ventricular premature depolarization Agathaluisa Jose, DINA 06/19/2019 I48.21 Permanent atrial fibrillation [...] M.D. 06/15/2019 I48.21 Permanent atrial fibrillation Agatha Damon, DINA 06/15/2019 I49.3 Ventricular premature depolarization [place] M.D. 06/15/2019 R53.83 Other fatigue Agatha Damon, [employer] 06/15/2019 R94.31 Abnormal electrocardiogram [ECG] [EKG] [place] Mesa M.D. 06/15/2019 I77.819 Aortic ectasia, unspecified site Agatha Norwooduman, [employer] OFF[employer] 06/15/2019 I27.20 Pulmonary hypertension, unspecified Agatha Thuman, [employer] OFF[employer] 06/14/2019 Z00.00 Encounter for general adult medical Josh Galicia NP examination without abnormal findings 06/14/2019 E11.9 Type 2 diabetes mellitus without Joshrufus Galicia NP complications 06/14/2019 I10 Essential (primary) hypertension Josh Galicia NP 06/14/2019 I48.20 Chronic atrial fibrillation, Josh Galicia, [employer] unspecified 06/14/2019 E78.2 Mixed hyperlipidemia Josh Galicia, DINA 06/14/2019 R53.83 Other fatigue Josh Galicia NP 06/14/2019 Z23 Encounter for immunization Josh Galicia NP 06/14/2019 J45.20 Mild intermittent asthma, Josh Galicia NP uncomplicated Plan of Treatment Future Appointment(s):09/05/2019 10:30 am - Nurse Visit cc at [facility]09/04/2019 12:00 pm - Nurse Visit cc at [facility]12/14/2019 10 :40 am - Germaine Rich MD at [facility] Internal Medicine - [facility]08/17/2019 - Dahiana Joe NPG47.33 Obstructive sleep apnea (adult) (pediatric)New Orders:[facility] Home[facility], Ordered: 08/17/19Follow up:6-8 weeks ([facility])Recommendations:You are being set up with CPAP for your sleep apnea through [facility] . They will call you to set up an appointment to get fit for a mask and warp picker your machine. If insurance does not cover enough of the machine and you are concerned about being able to afford it, please contact our office and we will try to get you set up with a donated machine. If you have difficulty with your equipment, or need to replace your mask or hoses, please contact your homecare agency.If you have any further questions, please call the [facility] Center at [phone] If you have any sleepiness while driving you MUST avoid operating a vehicle or machinery. If you feel tired while driving, machine tack puller and take a nap or switch drivers. If you know you are sleepy and need to go somewhere, arrange for a ride or use public transportation. It is very important to not risk your safety or the safety of others.I49.9 Cardiac arrhythmia, [id number] Obesity, unspecified Functional Status Description No Information Available Mental Status Description No Information Available Referrals Refer to Reason for Referral Status Appt Date Matteo Perkins MD Sent [address] [place] [address] [phone] Maribel Mclain MD Sent 07/30/[address] [place] [address] [phone]
--- OUTSIDE RECORDS SUMMARY | 2019-08-24 11:14 | XMS REPORT | Continuity of Care Document ---
:1955 External Reference #:[id number] Author Name Katharina Woo M.D. (transmitted by agent of provider Melody Vences) Address [address] [place] [id number] Care Team Providers Name Role Phone Katharina Woo MD [facility] - Care Team Information Hereditary Cancer Program Coordinator Cardiovascular Disease Toño Acuna MD - Gastroenterology Care Team Information Hereditary Cancer Program Coordinator [facility] - Sleep Disorder Care Team Information Hereditary Cancer Program Coordinator Diagnostic Roseanne Fulton MD - Surgery Care Team Information Hereditary Cancer Program Coordinator Dahiana Schaefer M.D. - Surgery of Care Team Information Hereditary Cancer Program Coordinator the Hand Kahlil Connor MD - Urology Care Team Information Hereditary Cancer Program Coordinator [phone] Jaxon Rocha MD - Orthopaedic Care Team Information Hereditary Cancer Program Coordinator Surgery Marge Castaneda MD - Care Team Information Hereditary Cancer Program Coordinator [phone] Dermatology Germaine Rich M.D. - Family Medicine Care Team Information Hereditary Cancer Program Coordinator [phone] Melida Ortega MD - Sports Medicine Care Team Information Hereditary Cancer Program Coordinator Problems Active Problems Provider Date Chronic atrial [...] Onset: 07/31/2015 Primary gout Kin Steele M.D.,[facility] Onset: 06/02/2018 Social History Type Date Description [...] Patient has never smoked Smoking Status Reviewed: 07/25/19 Patient has never smoked Exercise Type/Frequency Exercises regularly Allergies, Adverse Reactions, Alerts Active Allergies Reaction Severity Comments Date Naproxen esophageal ulcer 05/01/2007 Phenergan 05/01/2007 lithium 05/01/2007 Celebrex nausea 05/21/2013 Xarelto GI bleed ( lower GI tract ) 07/15/2016 Honey Bee Venom 02/01/2017 Metoprolol Diarrhea, Nausea 06/28/2019 Medications Active Medications SIG Qnty Indications Ordering Date Provider Cardizem 1 by mouth every 90tabs I49.3 Agatha Damon, 06/28/2019 120mg Tablets day [employer]TE[employer] Norvasc 1 by mouth every 90tabs Agatha Jose, 06/21/2019 5mg Tablets day [employer]TE[employer]PER[employer] Accu-Check Vivi Chem check blood 100units E11.9 Lucy Chase, 02/02/2019 Strips sugars twice a M.D., [facility] e11.9 Proair HFA 2 puffs [...] Germaine Rich MD 08/15/2018 Lancets glucose testing [facility] test twice daily Vitamin B-6 take 1 [...] Code Status Date Vaccine Reaction Lot # [id number] Given 06/14/2019 Pneumonia Vaccine No immediate reaction [id number] 71087 Given 03/29/2019 Influenza Virus Vaccine, Quadrivalent, Split, Im Use 6-35mo 39512 Given 04/12/2018 Zoster (Shingles) Vaccine (HZV), Recombinant, Subunit, Adjuvanted 78142 Given 01/21/2018 Influenza Virus Vaccine, Quadrivalent, Split, Preservative Free [id number] Given 01/16/2016 Afluria Vaccine [id number] Given 01/04/2016 Flu Vaccine Split Virus Preservative Free For Indiv 3Yr Older 36701 Given 01/22/2015 Pneumococcal Conjugate [id number] Vaccine 13 Valent For Intramuscular Use Q2035 Given 01/03/2015 Afluria Vaccine Q2037 Given 01/30/2014 Fluvirin Im 3Yrs And Older 92263 Given 01/30/2014 Influenza Virus Vaccine, [id number] Quadrivalent, Split, Preservative Free 37264 Given 09/21/2013 Zoster (Zostavax) [id number] 32754 Given 01/20/2013 Influenza Virus 3Yrs & Over Q2038 Given 01/10/2012 Fluzone Vaccine 55950 Given 03/26/2011 Influenza Virus 3Yrs & Over 27975 Given 03/27/2010 Pneumonia Vaccine 80142 Given 03/27/2010 Pneumonia Vaccine [id number] 74047 Given 02/28/2010 Influenza Virus 3Yrs & Over 37287 Given 02/21/2009 Influenza Virus 3Yrs & [id number] Over 34316 Given 02/22/2008 Influenza Virus 3Yrs & [id number] Over 76988 Given 11/14/2007 Tetanus And Diptheria (Td) For Adult Use Preservative Free 76487 Given 03/16/2007 Influenza Virus 3Yrs & Over 09870 Given 03/16/2007 Influenza Virus 3Yrs & Over 31611 Given 03/16/2007 Influenza Virus 3Yrs & [id number] Over 51200 Given 02/13/1981 Hepatitis B Vaccine Adult Dosage 67824 Given 10/14/1980 Hepatitis B Vaccine Adult Dosage 30478 Given 05/16/1980 Hepatitis B Vaccine Adult Dosage 65907 Ordered 01/14/2015 Flu Vaccine Split Virus Preservative Free For Indiv 3Yr Older Vital Signs Date Vital Result Comment 07/25/2019 4:04pm Height 66.5 inches 5'6.50" Weight 223.50 lb with/out shoes Heart Rate 64 /min R Radial irregular BP Systolic Sitting 136 mmHg Ule large cuff BP Diastolic Sitting 90 mmHg Ule large cuff BP Systolic Standing 144 mmHg Ule large cuff BP Diastolic Standing 90 mmHg Ule large cuff BMI (Body Mass Index) 35.5 kg/m2 Ejection Fraction EF 50-55% Echo 07/16/2019 06/28/2019 1:49pm Height 66.5 inches 5'6.50" Weight 225.38 lb without shoes Heart Rate 70 /min left radial BP Systolic Sitting 140 mmHg ule reg cuff BP Diastolic Sitting 84 mmHg ule reg cuff BP Systolic Standing 146 mmHg ule reg cuff BP Diastolic Standing 80 mmHg ule reg cuff BMI (Body Mass Index) 35.8 kg/m2 Ejection Fraction 50-55% Echo 11/11/17 Results Test Acquired Date Facility Test Result H/L Range Note CBC Auto 06/18/2019 [facility] White Blood 5.2 10^3/uL Normal 3.5-10.[address] [place] [address] [phone] Red Blood Count 4.52 10^6/uL Normal 4.18-5.48 [...] Red Blood Cells % 0.0 Laboratory 06/18/2019 [facility] TSH (Thyroid 0.55 Normal 0.34 -5.[address] Stim Horm) mcIU/mL [place], [place] [id number] [phone] Vitamin B12 819 pg/mL Normal 180-914 1 Vitamin D Total 25(Oh) 25.7 ng/mL Normal 20-50 2 Comp Metabolic 05/18/2019 [facility] Sodium 140 mmol/L Normal 135-[address] [place] [address] [phone] Potassium 4.2 mmol/L Normal 3.5-5.0 Chloride 103 [...] Egfr 85.8 >60 4 Laboratory test 05/18/2019 [facility] Hemoglobin A1c 6.8 % High 4.0-5.6 5 finding (Glyco HGB) [place] [address] [phone] Uric Acid 7.3 mg/dL Normal 4.4-7.6 6 Lipid Profile 05/18/2019 [facility] Triglycerides 188 mg/dL 7 (Trig/Chol/HDL) [place] [address] [phone] Cholesterol 138 mg/dL 8 HDL Cholesterol 43.1 mg/dL 9 LDL Cholesterol 57 mg/dL 10 Urine Microalbumin 05/18/2019 [facility] Ur Microalbumin 17.8 mg /L Random (mg/L) [place] [address] [phone] Urine Creatinine 153.32 mg/dL Urine Microalbumin/Creatinine 11.6 Normal <31 Laboratory test 05/18/2019 [facility] PSA Diagnostic 1.064 ng/ mL 0-4.[address] [place] [address] [phone] 1 Normal Range 180 to 914 Indeterminate [...] in selective patients <6.0%. Please refer to [place] [employer] diabetic care guidelines for further information. 6 FASTING 7 Desirable: <150 Borderline High: 150-199 High: 200-499 Very High: >500 8 Desirable: <200 Borderline High: 200-239 High: >239 9 Low: <40 Desirable: 40-60 High: >60 10 Desirable: <100 Near Optimal: 100-129 Borderline High: 130-159 High: 160-189 Very High: >189 11 Serum levels of PSA measured using the [employer] DXI Hybritech immunoassay should not be interpreted as absolute evidence of the presence or absence of disease. The PSA value should be used in conjunction with other pertinent clinical diagnostic procedures. The values obtained with different assay methods or kits cannot be used interchangeably. Procedures Date Code Description Status 07/19/2019 486395397 Diabetic Retinal Eye Exam Completed 07/19/2019 65486 Holter Monitor Review (24 hr) review & interp only Completed 07/17/2019 71529 ECG Monitor/Recording W/Visual Superimposition Completed Scanning 07/17/2019 37170 ECG Monitor/Recording W/Visual Superimposition Completed Scanning 07/16/2019 88240 ECHO Transthoracic, Real-Time 2D With Doppler And Completed Color Flow 07/16/2019 14692 ECHO Transthoracic, Real-Time 2D With Doppler And Completed Color Flow 06/19/2019 68492 Holter Monitor Review (24 hr)dr review & interp only Completed 06/18/2019 03418 ECG Monitor/Recording W/Visual Superimposition Completed Scanning 06/18/2019 88728 ECG Monitor/Recording W/Visual Superimposition Completed Scanning 06/15/2019 47210 EKG Tracing & Interpretation Completed 07/18/2018 343430412 Diabetic Retinal Eye Exam Completed 09/09/2017 251238487 Diabetic Retinal Eye Exam Completed 2016 930067936 Diabetic Retinal Eye Exam Completed 09/08/2015 677611993 Diabetic Retinal Eye Exam Completed 08/05/2014 410957177 Diabetic Retinal Eye Exam Completed 01/02/2014 73401556 Colonoscopy Completed 07/16/2013 261822044 Diabetic Retinal Eye Exam Completed 04/15/2013 997837031 Diabetic Retinal Eye Exam Completed 04/04/2012 512805495 Diabetic Retinal Eye Exam Completed 10/01/2003 14736683 Colonoscopy Completed Medical Devices Description No Information Available Encounters Type Date Location Provider Dx Diagnosis Office Visit 06/28/2019 [facility] Agatha Thnorma, I48.21 Permanent atrial 2:20p [employer]TE[employer]PER[employer]OR fibrillation I10 Essential (primary) hypertension E78.5 Hyperlipidemia, unspecified I77.819 Aortic ectasia, unspecified site I49.3 Ventricular premature depolarization Office Visit 06/15/2019 2:00p [facility] Agatha I48.21 Permanent atrial Thuman, [employer]TE[employer]PER[employer]OR fibrillation R53.83 Other fatigue I77.819 Aortic ectasia, unspecified site I27.20 Pulmonary hypertension, unspecified Assessments Date Code Description Provider 07/25/2019 I49.3 Ventricular premature depolarization Katharina Woo M.D. 07/25/2019 I48.91 Unspecified atrial fibrillation Katharina Woo M.D. 07/25/2019 I77.810 Thoracic aortic ectasia Katharina Woo M.D. 07/25/2019 I48.21 Permanent atrial fibrillation Katharina Woo M.D. 07/25/2019 I10 Essential (primary) hypertension Katharina Woo M.D. 07/25/2019 E78.5 Hyperlipidemia, unspecified Isaac Carranza.D. 07/25/2019 E66.9 Obesity, unspecified Katharina Woo M.D. [...] Woo M.D. 07/16/2019 I77.810 Thoracic aortic ectasia [facility] 07/16/2019 I48.21 Permanent atrial fibrillation Katharina Woo M.D. 07/16/2019 I48.21 Permanent atrial fibrillation [facility] 07/16/2019 I10 Essential (primary) hypertension Katharina Woo M.D. 07/16/2019 I10 Essential (primary) hypertension [facility] Schedule 07/16/2019 I77.819 Aortic ectasia, unspecified site Katharina Woo M.D. 07/16/2019 I77.819 Aortic ectasia, unspecified site [facility] Schedule 06/28/2019 I48.21 Permanent atrial fibrillation Agatha Thnorma, MA[employer]TENA[employer]IAN SUPER[employer]OR 06/28/2019 I10 Essential (primary) hypertension Agatha Norwooduman, MAINTENANCE AND C[employer]ODIAN SUPERVISOR 06/28/2019 E78.5 Hyperlipidemia, unspecified Agatha Thuman, MA[employer]TENANCE [employer] C[employer]IAN SUPERVISOR 06/28/2019 I77.819 Aortic ectasia, unspecified site Agatha Thuman, MA[employer]TENA[employer]IAN SUPERVISOR 06/28/2019 I49.3 Ventricular premature depolarization Agatha Jose, [employer]TE[employer]IAN SUPER[employer]OR 06/19/2019 I48.21 Permanent atrial fibrillation Katharina Woo M.D. 06/19/2019 I49.3 Ventricular premature depolarization Quarielle Woo M.D. 06/18/2019 I48.21 Permanent atrial fibrillation [...] NP 06/15/2019 I27.20 Pulmonary hypertension, unspecified Agatha Jose, DINA 06/14/2019 Z00.00 Encounter for general adult medical Josh Galicia NP examination without abnormal findings 06/14/2019 E11.9 Type 2 diabetes mellitus without Josh Galicia NP complications 06/14/2019 I10 Essential (primary) hypertension Josh Galicia NP 06/14/2019 I48.20 Chronic atrial fibrillation, Josh Galicia NP unspecified 06/14/2019 E78.2 Mixed hyperlipidemia Joshrufus Galicia NP 06/14/2019 R53.83 Other fatigue Josh Galicia NP 06/14/2019 Z23 Encounter for immunization Josh Galicia NP 06/14/2019 J45.20 Mild intermittent asthma, Josh Galicia NP uncomplicated Plan of Treatment Future Appointment(s):09/05/2019 10:30 am - [facility]09/04/2019 12:00 pm - [facility]12/14/2019 10 :40 am - Germaine Rich MD at [facility] - [facility]07/25/2019 - Katharina Woo M.D.I49.3 Ventricular premature depolarizationNew Orders:24 hour holter monitor, Scheduled: 09/04/19I48.91 Unspecified atrial pzbmdkbtafsoH69.810 Thoracic aortic ectasiaNew Orders:Echocardiogram, Ordered: 07/25/19I48.21 Permanent atrial fibrillationFollow up:one yr ovI10 Essential ( primary) sirmtgpkdedtZ31.5 Hyperlipidemia, hmtokexvmceH55.9 Obesity, unspecified Functional Status Description No Information Available Mental Status Description No Information Available Referrals Refer to Dr Reason for Referral Status Appt Date Matteo Perkins MD Sent [address] [place] [address] [phone] Maribel Mclain MD Sent 07/30/[address] [place] [address] [phone]
--- OUTSIDE RECORDS SUMMARY | 2019-08-24 11:14 | XMS REPORT | Continuity of Care Document ---
:1955 External Reference #:[id number] Author Name [facility] Schedule (transmitted by agent of provider Melody Vences) Address [address] [facility] [address] [place] [address] Care Team Providers Name Role Phone Katharina Woo MD [facility] - Care Team Information Electronic Specialist [phone] Cardiovascular Disease Toño Acuna MD - Gastroenterology Care Team Information Electronic Specialist [phone] [facility] - Sleep Disorder Care Team Information Electronic Specialist Diagnostic Roseanne Fulton MD - Surgery Care Team Information Electronic Specialist Dahiana Schaefer M.D. - Surgery of Care Team Information Electronic Specialist the Hand Kahlil Connor MD - Urology Care Team Information Electronic Specialist [phone] Jaxon Rocha MD - Orthopaedic Care Team Information Electronic Specialist Surgery Marge Catsaneda MD - Care Team Information Electronic Specialist [phone] Dermatology Germaine Rich M.D. - Family Medicine Care Team Information Electronic Specialist Melida Ortega MD - Sports Medicine Care Team Information Electronic Specialist [phone] Problems Active Problems Provider Date Chronic atrial [...] I49.3 Agatha Jose, 06/28/2019 120mg Tablets day HANDLE ROUNDER OPERATOR Norvasc 1 by mouth every 90tabs Agatha Jose, 06/21/2019 5mg Tablets day HANDLE ROUNDER OPERATOR Accu-Check Vivi Chem check blood 100units E11.9 Lucy Chase, 02/02/2019 Strips sugars twice a M.D., FACP [facility] e11.9 Proair HFA 2 puffs every 4 17gm eGrmaine Rich MD 01/30/2019 108(90Base) hours as needed [...] Germaine Rich MD 08/15/2018 Lancets glucose testing [facility] test twice daily Vitamin B-6 take 1 [...] Medication SIG Qnty Indications Ordering Provider Date [facility] pharmacy administered Unknown 07/29/2018 Injection Depomedrol 40MG Priyank Lopez M.D. 11/23/2017 Injection Depomedrol 40MG González Rodriguez MD 07/21/2017 Injection Influenza,Unspecified Unknown 12/22/2016 Injection Technetium TC 99M TetrofosmIrving solomon M.D. 05/07/2016 Per Unit Dose Up To 40 Millicuries Injection Immunizations CPT Code Status Date Vaccine Reaction Lot # [id number] Given 06/14/2019 Pneumonia Vaccine No immediate reaction [id number] 45176 Given 03/29/2019 Influenza Virus Vaccine, Quadrivalent, Split, Im Use 6-35mo 08202 Given 04/12/2018 Zoster (Shingles) Vaccine (HZV), Recombinant, Subunit, Adjuvanted 91327 Given 01/21/2018 Influenza Virus Vaccine, Quadrivalent, Split, Preservative Free Q2035 Given 01/16/2016 Afluria Vaccine 05050 Given 01/04/2016 Flu Vaccine Split Virus Preservative Free For Indiv 3Yr Older 92673 Given 01/22/2015 Pneumococcal Conjugate [id number] Vaccine 13 Valent For Intramuscular Use Q2035 Given 01/03/2015 Afluria Vaccine Q2037 Given 01/30/2014 Fluvirin Im 3Yrs And Older 64980 Given 01/30/2014 Influenza Virus Vaccine, [id number] Quadrivalent, Split, Preservative Free 26609 Given 09/21/2013 Zoster (Zostavax) [id number] 76332 Given 01/20/2013 Influenza Virus 3Yrs & Over Q2038 Given 01/10/2012 Fluzone Vaccine 61361 Given 03/26/2011 Influenza Virus 3Yrs & Over 00458 Given 03/27/2010 Pneumonia Vaccine 93623 Given 03/27/2010 Pneumonia Vaccine [id number] 29959 Given 02/28/2010 Influenza Virus 3Yrs & Over 67928 Given 02/21/2009 Influenza Virus 3Yrs & [id number] Over 85067 Given 02/22/2008 Influenza Virus 3Yrs & [id number] Over 16257 Given 11/14/2007 Tetanus And Diptheria (Td) For Adult Use Preservative Free 56729 Given 03/16/2007 Influenza Virus 3Yrs & Over 42680 Given 03/16/2007 Influenza Virus 3Yrs & Over 14415 Given 03/16/2007 Influenza Virus 3Yrs & [id number] Over 07661 Given 02/13/1981 Hepatitis B Vaccine Adult Dosage 60823 Given 10/14/1980 Hepatitis B Vaccine Adult Dosage 18881 Given 05/16/1980 Hepatitis B Vaccine Adult Dosage 04270 Ordered 01/14/2015 Flu Vaccine Split Virus Preservative [...] Result H/L Range Note CBC Auto 06/18/2019 [facility] White Blood 5.2 10^3/uL Normal 3.5-10.[address] [place] [address] [phone] Red Blood Count 4.52 10^6/uL Normal 4.18-5.48 [...] Red Blood Cells % 0.0 Laboratory 06/18/2019 [facility] TSH (Thyroid 0.55 Normal 0.34 -5.60 test finding [address] Stim Horm) mcIU/[place] [address] [phone] Vitamin B12 819 pg/mL Normal 180-914 1 Vitamin D Total 25(Oh) 25.7 ng/mL Normal 20-50 2 Comp Metabolic 05/18/2019 [facility] Sodium 140 mmol/L Normal 135-145 [address] [place] [address] [phone] Potassium 4.2 mmol/L Normal 3.5-5.0 Chloride 103 [...] Egfr 85.8 >60 4 Laboratory test 05/18/2019 [facility] Hemoglobin A1c 6.8 % High 4.0-5.[address] (Glyco HGB) [place] [address] [phone] Uric Acid 7.3 mg/dL Normal 4.4-7.6 6 Lipid Profile 05/18/2019 [facility] Triglycerides 188 mg/dL 7 (Trig/Chol/HDL) [address] [place] [address] [phone] Cholesterol 138 mg/dL 8 HDL Cholesterol 43.1 mg/dL 9 LDL Cholesterol 57 mg/dL 10 Urine Microalbumin 05/18/2019 [facility] Ur Microalbumin 17.8 mg /L Random [address] (mg/L) [place] [address] [phone] Urine Creatinine 153.32 mg/dL Urine Microalbumin/Creatinine 11.6 Normal <31 Laboratory test 05/18/2019 [facility] PSA Diagnostic 1.064 ng/ mL 0-4.0 [address] [place] [address] [phone] 1 Normal Range 180 to 914 Indeterminate [...] in selective patients <6.0%. Please refer to [place] [employer] diabetic care guidelines for further information. 6 FASTING 7 Desirable: <150 Borderline High: 150-199 High: 200-499 Very High: >500 8 Desirable: <200 Borderline High: 200-239 High: >239 9 Low: <40 Desirable: 40-60 High: >60 10 Desirable: <100 Near Optimal: 100-129 Borderline High: 130-159 High: 160-189 Very High: >189 11 Serum levels of PSA measured using the [employer] DXI Hybritech immunoassay should not be interpreted as absolute evidence of the presence or absence of disease. The PSA value should be used in conjunction with other pertinent clinical diagnostic procedures. The values obtained with different assay methods or kits cannot be used interchangeably. Procedures Date Code Description Status 07/19/2019 786203430 Diabetic Retinal Eye Exam Completed 07/17/2019 27321 ECG Monitor/Recording W/Visual Superimposition Completed Scanning 07/17/2019 68316 Holter Monitor Review (24 hr)dr jackson & little only Completed 07/16/2019 22637 ECHO Transthoracic, Real-Time 2D With Doppler And Completed Color Flow 07/16/2019 74401 ECHO Transthoracic, Real-Time 2D With Doppler And Completed Color Flow 06/19/2019 56251 Holter Monitor Review (24 hr)dr jackson & little only Completed 06/18/2019 38810 ECG Monitor/Recording W/Visual Superimposition Completed Scanning 06/18/2019 68112 ECG Monitor/Recording W/Visual Superimposition Completed Scanning 06/15/2019 57459 EKG Tracing & Interpretation Completed 07/18/2018 700995981 Diabetic Retinal Eye Exam Completed 09/09/2017 846162226 Diabetic Retinal Eye Exam Completed 2016 683230733 Diabetic Retinal Eye Exam Completed 09/08/2015 955453422 Diabetic Retinal Eye Exam Completed 08/05/2014 895792388 Diabetic Retinal Eye Exam Completed 01/02/2014 70902044 Colonoscopy Completed 07/16/2013 258214878 Diabetic Retinal Eye Exam Completed 04/15/2013 730236146 Diabetic Retinal Eye Exam Completed 04/04/2012 404156240 Diabetic Retinal Eye Exam Completed 10/01/2003 76110763 Colonoscopy Completed Medical Devices Description No Information Available Encounters Type Date Location Provider Dx Diagnosis Office Visit 06/28/2019 [facility] Thuman, I48.21 Permanent atrial 2:20p HANDLE ROUNDER OPERATOR fibrillation I10 Essential (primary) hypertension E78.5 Hyperlipidemia, unspecified I77.819 Aortic ectasia, unspecified site I49.3 Ventricular premature depolarization Office Visit 06/15/2019 2:00p [facility] I48.21 Permanent atrial Thuman, HANDLE ROUNDER OPERATOR fibrillation R53.83 Other fatigue I77.819 Aortic ectasia, unspecified site I27.20 Pulmonary hypertension, unspecified Assessments Date Code Description Provider 07/17/2019 I49.3 Ventricular premature depolarization Nurse Visit cc 07/16/2019 I77.810 Thoracic aortic ectasia Katharina Woo M.D. 07/16/2019 I77.810 Thoracic aortic ectasia [facility] Schedule 07/16/2019 I48.21 Permanent atrial fibrillation Katharina Woo M.D. 07/16/2019 I48.21 Permanent atrial fibrillation [facility] Schedule 07/16/2019 I10 Essential (primary) hypertension Katharina Woo M.D. 07/16/2019 I10 Essential (primary) hypertension [facility] Schedule 07/16/2019 I77.819 Aortic ectasia, unspecified site Katharina Woo M.D. 07/16/2019 I77.819 Aortic ectasia, unspecified site [facility] Schedule 06/28/2019 I48.21 Permanent atrial fibrillation Agatha Thuman, HANDLE ROUNDER OPERATOR 06/28/2019 I10 Essential (primary) hypertension Agatha Thuman, HANDLE ROUNDER OPERATOR 06/28/2019 E78.5 Hyperlipidemia, unspecified Agatha Thuman, HANDLE ROUNDER OPERATOR 06/28/2019 I77.819 Aortic ectasia, unspecified site Agatha Norwooduman, HANDLE ROUNDER OPERATOR 06/28/2019 I49.3 Ventricular premature depolarization Agatha Thuman, HANDLE ROUNDER OPERATOR 06/19/2019 I48.21 Permanent atrial fibrillation Katharina Woo M.D. 06/19/2019 I49.3 Ventricular premature depolarization Katharina Woo M.D. 06/18/2019 I48.21 Permanent atrial fibrillation Katharina Woo M.D. 06/18/2019 I48.21 Permanent atrial fibrillation Nurse Visit cc 06/18/2019 I49.3 Ventricular premature depolarization Katharina Woo M.D. 06/18/2019 I49.3 Ventricular premature depolarization Nurse Visit cc 06/15/2019 I48.21 Permanent atrial fibrillation [place] M.D. 06/15/2019 I48.21 Permanent atrial fibrillation Agatha Jose, HANDLE ROUNDER OPERATOR 06/15/2019 I49.3 Ventricular premature depolarization [place] M.D. 06/15/2019 R53.83 Other fatigue Agatha Norwooduman, HANDLE ROUNDER OPERATOR 06/15/2019 R94.31 Abnormal electrocardiogram [ECG] [EKG] [place] M.D. 06/15/2019 I77.819 Aortic ectasia, unspecified site Agatha Jose, HANDLE ROUNDER OPERATOR 06/15/2019 I27.20 Pulmonary hypertension, unspecified Agatha Norwooduman, HANDLE ROUNDER OPERATOR 06/14/2019 Z00.00 Encounter for general adult medical Josh Galicia NP examination without abnormal findings 06/14/2019 E11.9 Type 2 diabetes mellitus without Josh DINA Galicia complications 06/14/2019 I10 Essential (primary) hypertension Josh Frida, HANDLE ROUNDER OPERATOR 06/14/2019 I48.20 Chronic atrial fibrillation, Josh Frida, HANDLE ROUNDER OPERATOR unspecified 06/14/2019 E78.2 Mixed hyperlipidemia Josh Frida, HANDLE ROUNDER OPERATOR 06/14/2019 R53.83 Other fatigue Josh Frida, HANDLE ROUNDER OPERATOR 06/14/2019 Z23 Encounter for immunization Josh Galicia NP 06/14/2019 J45.20 Mild intermittent asthma, Josh Galicia NP uncomplicated Plan of Treatment Future Appointment(s):07/30/2019 1:00 pm - Maribel Mclain MD at [facility]12/14/2019 10:40 am - [facility] Agatha Jose NPI48.21 Permanent atrial fibrillationFollow [...] premature to ensure they are responding to IvaiavjaC85.5 Hyperlipidemia, peqmourwzfvO94.819 Aortic ectasia, unspecified siteI49.3 Ventricular premature depolarizationNew Medication:Cardizem 120 mg - 1 by mouth every day Functional Status Description No Information Available Mental Status Description No Information Available Referrals Refer to Reason for Referral Status Appt Date Matteo Perkins MD Sent [address] [place] [address] [phone] Maribel Mclain MD Sent 07/30/[address] [place] [address] [phone]
--- OUTSIDE RECORDS SUMMARY | 2019-08-24 11:14 | XMS REPORT | Continuity of Care Document ---
:1955 External Reference #:[id number] Author Name Maribel Mclain MD (transmitted by agent of provider Jeannie Robins) Address [address], [address] [place] [address] Care Team Providers Name Role Phone Katharina Woo MD [facility] - Care Team Information Teacher Of The Hearing Impaired [phone] Cardiovascular Disease Toño Acuna MD - Gastroenterology Care Team Information Teacher Of The Hearing Impaired [facility] [facility] - [place] Disorder Care Team Information Teacher Of The Hearing Impaired Diagnostic Roseanne Fulton MD - Surgery Care Team Information Teacher Of The Hearing Impaired Dahiana Schaefer M.D. - Surgery of Care Team Information Teacher Of The Hearing Impaired the Hand Kahlil Connor MD - Urology Care Team Information Teacher Of The Hearing Impaired [phone] Jaxon Rocha MD - Orthopaedic Care Team Information Teacher Of The Hearing Impaired Surgery Marge Castaneda MD - Care Team Information Teacher Of The Hearing Impaired [phone] Dermatology Germaine Rich M.D. - Family Medicine Care Team Information Teacher Of The Hearing Impaired Melida Ortega MD - Sports Medicine Care Team Information Teacher Of The Hearing Impaired Problems Active Problems Provider Date Chronic atrial [...] M.D. Onset: 07/31/2015 Primary gout Kin Steele M.D.,[facility] Onset: 06/02/2018 Social History Type Date [...] I49.3 Agatha Jose, 06/28/2019 120mg Tablets day ASSISTANT OPERATOR Norvasc 1 by mouth every 90tabs Agatha Norwoodnorma, 06/21/2019 5mg Tablets day ASSISTANT OPERATOR Accu-Check Vivi Chem check blood 100units E11.9 Lucy Chase, 02/02/2019 Strips sugars twice a M.D., FACP [facility] dx e11.9 Proair HFA [...] Kerline Gordon MD 08/15/2018 Lancets glucose testing [facility] [place] test twice daily Vitamin B-6 take 1 [...] Gabapentin 1 tab by mouth 360caps Josh Galicia, DINA 300mg 4x/day Capsules Pharmacist Choice Unknown Ultra [...] Medication SIG Qnty Indications Ordering Provider [facility] administered Unknown 07/29/2018 Injection Depomedrol 40MG Priyank Lopez M.D. 11/23/2017 Injection Depomedrol 40MG González Rodriguez MD 07/21/2017 Injection Influenza,Unspecified Unknown 12/22/2016 Injection Technetium TC 99M TetrofIrving rojas M.D. 05/07/2016 Per Unit Dose Up To 40 Millicuries Injection Immunizations CPT Code Status Date Vaccine Reaction Lot # [id number] Given 06/14/2019 Pneumonia Vaccine No immediate reaction [id number] 40567 Given 03/29/2019 Influenza Virus Vaccine, Quadrivalent, Split, Im Use 6-35mo 74664 Given 04/12/2018 Zoster (Shingles) Vaccine (HZV), Recombinant, Subunit, Adjuvanted 66163 Given 01/21/2018 Influenza Virus Vaccine, Quadrivalent, Split, Preservative Free Q2035 Given 01/16/2016 Afluria Vaccine 20596 Given 01/04/2016 Flu Vaccine Split Virus Preservative Free For Indiv 3Yr Older 35796 Given 01/22/2015 Pneumococcal Conjugate [id number] Vaccine 13 Valent For Intramuscular Use Q2035 Given 01/03/2015 Afluria Vaccine Q2037 Given 01/30/2014 Fluvirin Im 3Yrs And Older 37362 Given 01/30/2014 Influenza Virus Vaccine, [id number] Quadrivalent, Split, Preservative Free 83164 Given 09/21/2013 Zoster (Zostavax) [id number] 20535 Given 01/20/2013 Influenza Virus 3Yrs & Over Q2038 Given 01/10/2012 Fluzone Vaccine 27036 Given 03/26/2011 Influenza Virus 3Yrs & Over 37177 Given 03/27/2010 Pneumonia Vaccine 85792 Given 03/27/2010 Pneumonia Vaccine [id number] 79689 Given 02/28/2010 Influenza Virus 3Yrs & Over 97361 Given 02/21/2009 Influenza Virus 3Yrs & [id number] Over 15458 Given 02/22/2008 Influenza Virus 3Yrs & [id number] Over 28275 Given 11/14/2007 Tetanus And Diptheria (Td) For Adult Use Preservative Free 34954 Given 03/16/2007 Influenza Virus 3Yrs & Over 44186 Given 03/16/2007 Influenza Virus 3Yrs & Over 89399 Given 03/16/2007 Influenza Virus 3Yrs & [id number] Over 89468 Given 02/13/1981 Hepatitis B Vaccine Adult Dosage 54665 Given 10/14/1980 Hepatitis B Vaccine Adult Dosage 80515 Given 05/16/1980 Hepatitis B Vaccine Adult Dosage 49211 Ordered 01/14/2015 Flu Vaccine Split Virus Preservative [...] Result H/L Range Note CBC Auto 06/18/2019 [facility] White Blood 5.2 10^3/uL Normal 3.5-10.[address] [place] [address] [phone] Red Blood Count 4.52 10^6/uL Normal 4.18-5.48 [...] Red Blood Cells % 0.0 Laboratory 06/18/2019 [facility] TSH (Thyroid 0.55 Normal 0.34 -5.[address] Stim Horm) mcIU/[place] [address] [phone] Vitamin B12 819 pg/mL Normal 180-914 1 Vitamin D Total 25(Oh) 25.7 ng/mL Normal 20-50 2 Comp Metabolic 05/18/2019 [facility] Sodium 140 mmol/L Normal 135-[address] [place] [address] [phone] Potassium 4.2 mmol/L Normal 3.5-5.0 Chloride 103 [...] Egfr 85.8 >60 4 Laboratory test 05/18/2019 [facility] Hemoglobin A1c 6.8 % High 4.0-5.6 5 finding 101 [facility] (Glyco HGB) [place] [address] [phone] Uric Acid 7.3 mg/dL Normal 4.4-7.6 6 Lipid Profile 05/18/2019 [facility] Triglycerides 188 mg/dL 7 (Trig/Chol/HDL) [address] [place] [address] [phone] Cholesterol 138 mg/dL 8 HDL Cholesterol 43.1 mg/dL 9 LDL Cholesterol 57 mg/dL 10 Urine Microalbumin 05/18/2019 [facility] Ur Microalbumin 17.8 mg /L Random [facility] (mg/L) [place] [address] [phone] Urine Creatinine 153.32 mg/dL Urine Microalbumin/Creatinine 11.6 Normal <31 Laboratory test 05/18/2019 [facility] PSA Diagnostic 1.064 ng/ mL 0-4.0 11 finding [address] [place] [address] [phone] 1 Normal Range 180 to 914 Indeterminate [...] in selective patients <6.0%. Please refer to [place] [employer] diabetic care guidelines for further information. 6 FASTING 7 Desirable: <150 Borderline High: 150-199 High: 200-499 Very High: >500 8 Desirable: <200 Borderline High: 200-239 High: >239 9 Low: <40 Desirable: 40-60 High: >60 10 Desirable: <100 Near Optimal: 100-129 Borderline High: 130-159 High: 160-189 Very High: >189 11 Serum levels of PSA measured using the Saqib [place] DXI Hybritech immunoassay should not be interpreted as absolute evidence of the presence or absence of disease. The PSA value should be used in conjunction with other pertinent clinical diagnostic procedures. The values obtained with different assay methods or kits cannot be used interchangeably. Procedures Date Code Description Status 07/19/2019 861985986 Diabetic Retinal Eye Exam Completed 07/19/2019 33223 Holter Monitor Review (24 hr)dr jackson & laurenp only Completed 07/17/2019 69573 ECG Monitor/Recording W/Visual Superimposition Completed Scanning 07/17/2019 45876 ECG Monitor/Recording W/Visual Superimposition Completed Scanning 07/16/2019 58446 ECHO Transthoracic, Real-Time 2D With Doppler And Completed Color Flow 07/16/2019 79300 ECHO Transthoracic, Real-Time 2D With Doppler And Completed Color Flow 06/19/2019 47407 Holter Monitor Review (24 hr)dr jackson & little only Completed 06/18/2019 54695 ECG Monitor/Recording W/Visual Superimposition Completed Scanning 06/18/2019 69384 ECG Monitor/Recording W/Visual Superimposition Completed Scanning 06/15/2019 94724 EKG Tracing & Interpretation Completed 07/18/2018 174340429 Diabetic Retinal Eye Exam Completed 09/09/2017 739387678 Diabetic Retinal Eye Exam Completed 2016 750011524 Diabetic Retinal Eye Exam Completed 09/08/2015 091478855 Diabetic Retinal Eye Exam Completed 08/05/2014 755064474 Diabetic Retinal Eye Exam Completed 01/02/2014 12674911 Colonoscopy Completed 07/16/2013 053013838 Diabetic Retinal Eye Exam Completed 04/15/2013 420765662 Diabetic Retinal Eye Exam Completed 04/04/2012 121820342 Diabetic Retinal Eye Exam Completed 10/01/2003 05913972 Colonoscopy Completed Medical Devices Description No Information Available Encounters Type Date Location Provider Dx Diagnosis Office Visit 07/30/2019 Pulmonology And Maribel Mclain, G47.9 Sleep disorder, 1:00p Sleep Services Of unspecified Weave Defect Charting Clerk G47.33 Obstructive sleep apnea (adult) (pediatric) Office Visit 07/25/2019 Tj Min I49.3 Ventricular 4:20p Cardiology Melissa Woo premature depolarization I48.91 Unspecified atrial fibrillation I77.810 Thoracic aortic ectasia I48.21 Permanent atrial fibrillation I10 Essential (primary) hypertension E78.5 Hyperlipidemia, unspecified E66.9 Obesity, unspecified Office Visit 06/28/2019 2:20p [facility] Aagtha I48.21 Permanent atrial Thuman, ASSISTANT OPERATOR fibrillation I10 Essential (primary) hypertension E78.5 Hyperlipidemia, unspecified I77.819 Aortic ectasia, unspecified site I49.3 Ventricular premature depolarization Office Visit 06/15/2019 2:00p [facility] Agatha I48.21 Permanent atrial Thuman, ASSISTANT OPERATOR fibrillation R53.83 Other fatigue I77.819 Aortic [...] Woo M.D. 07/16/2019 I77.810 Thoracic aortic ectasia [place] [facility] Schedule 07/16/2019 I48.21 Permanent atrial fibrillation Katharina Woo M.D. 07/16/2019 I48.21 Permanent atrial fibrillation [place] [facility] Schedule 07/16/2019 I10 Essential (primary) hypertension Katharina Woo M.D. 07/16/2019 I10 Essential (primary) hypertension [place] [facility] Schedule 07/16/2019 I77.819 Aortic ectasia, unspecified site Katharina Woo M.D. 07/16/2019 I77.819 Aortic ectasia, unspecified site [facility] Schedule 06/28/2019 I48.21 Permanent atrial fibrillation Agatha Jose NP 06/28/2019 I10 Essential (primary) hypertension Agatha Thnorma, ASSISTANT OPERATOR 06/28/2019 E78.5 Hyperlipidemia, unspecified Agatha Thuman, ASSISTANT OPERATOR 06/28/2019 I77.819 Aortic ectasia, unspecified site Agatha Thuman, ASSISTANT OPERATOR 06/28/2019 I49.3 Ventricular premature depolarization Agatha Thuman, ASSISTANT OPERATOR 06/19/2019 I48.21 Permanent atrial fibrillation Katharina Woo M.D. 06/19/2019 I49.3 Ventricular premature depolarization Katharina Woo M.D. 06/18/2019 I48.21 Permanent atrial fibrillation Katharina Woo M.D. 06/18/2019 I48.21 Permanent atrial fibrillation Nurse Visit cc 06/18/2019 I49.3 Ventricular premature depolarization Katharina Woo M.D. 06/18/2019 I49.3 Ventricular premature depolarization Nurse Visit cc 06/15/2019 I48.21 Permanent atrial fibrillation [place]a M.D. 06/15/2019 I48.21 Permanent atrial fibrillation Agathaluisa Jose, DINA 06/15/2019 I49.3 Ventricular premature depolarization [place] M.D. 06/15/2019 R53.83 Other fatigue Agatha Jose, DINA 06/15/2019 R94.31 Abnormal electrocardiogram [ECG] [EKG] [place] M.D. 06/15/2019 I77.819 Aortic ectasia, unspecified site Agatha Jose, DINA 06/15/2019 I27.20 Pulmonary hypertension, unspecified Agatha Jose, ASSISTANT OPERATOR 06/14/2019 Z00.00 Encounter for general adult medical Josh Galicia NP examination without abnormal findings 06/14/2019 E11.9 Type 2 diabetes mellitus without Josh Frida, ASSISTANT OPERATOR complications 06/14/2019 I10 Essential (primary) hypertension Josh Frida, ASSISTANT OPERATOR 06/14/2019 I48.20 Chronic atrial fibrillation, Josh Frida, ASSISTANT OPERATOR unspecified 06/14/2019 E78.2 Mixed hyperlipidemia Josh Frida, ASSISTANT OPERATOR 06/14/2019 R53.83 Other fatigue Josh Galicia ASSISTANT OPERATOR 06/14/2019 Z23 Encounter for immunization Joshrufus Galicia, DINA 06/14/2019 J45.20 Mild intermittent asthma, Josh Galicia NP uncomplicated Plan of Treatment Future Appointment(s):08/17/2019 1:00 pm - Dahiana Joe NP at [facility]09/05/2019 10:30 am - Nurse Visit cc at [facility] Cqhdfjwtnv82/21/2020 12:00 pm - Nurse Visit cc at [facility] Pwycolptva40/31/ 2020 10:40 am - Germaine Rich MD at [facility] Internal Medicine - [facility]07/30/2019 - Maribel Mclain MDG47.9 Sleep disorder, unspecifiedFollow up:2 oxhegG82.33 Obstructive sleep apnea (adult) (pediatric) Functional Status Description No Information Available Mental Status Description No Information Available Referrals Refer to Reason for Referral Status Appt Matteo Perkins MD Sent [address] [place] [address] [phone] Maribel Mclain MD Sent 07/30/2019 [address] [facility] [address] [place] [address] [phone]
--- OUTSIDE RECORDS SUMMARY | 2019-08-24 11:14 | XMS REPORT | Continuity of Care Document ---
:1955 External Reference #:[id number] Author Name Nurse Visit cc (transmitted by agent of provider Melody Vences) Address [address] [facility] [address] [place] [address] Care Team Providers Name Role Phone Katharina Woo MD [facility] - Care Team Information Long Chain Dyeing Machine Operator [phone] Cardiovascular Disease Toño Acuna MD - Gastroenterology Care Team Information Long Chain Dyeing Machine Operator [facility] - Sleep Disorder Care Team Information Long Chain Dyeing Machine Operator Diagnostic Roseanne Fulton MD - Surgery Care Team Information Long Chain Dyeing Machine Operator [phone] Dahiana Schaefer M.D. - Surgery of Care Team Information Long Chain Dyeing Machine Operator the Hand Kahlil Connor MD - Urology Care Team Information Long Chain Dyeing Machine Operator [phone] Jaxon Rocha MD - Orthopaedic Care Team Information Long Chain Dyeing Machine Operator [phone] Surgery Marge Castaneda MD - Care Team Information Long Chain Dyeing Machine Operator [phone] Dermatology Germaine Rich M.D. - Family Medicine Care Team Information Long Chain Dyeing Machine Operator [phone] Melida Ortega MD - Sports Medicine Care Team Information Long Chain Dyeing Machine Operator [phone] Problems Active Problems Provider Date Chronic atrial [...] M.D. Onset: 07/31/2015 Primary gout Kin Steele M.D.,[facility] Onset: 06/02/2018 Social History Type Date [...] I49.3 Agatha Jose, 06/28/2019 120mg Tablets day GRAIN INSPECTOR Norvasc 1 by mouth every 90tabs Agatha Jose, 06/21/2019 5mg Tablets day GRAIN INSPECTOR Accu-Check Vivi Chem check blood 100units E11.9 Lucy Chase, 02/02/2019 Strips sugars twice a M.D., FACP [facility] dx e11.9 Proair HFA [...] Germaine Rich MD 08/15/2018 Lancets glucose testing [facility] [place] test twice daily Vitamin B-6 take 1 [...] Medication SIG Qnty Indications Ordering Provider Date [facility] pharmacy administered Unknown 07/29/2018 Injection Depomedrol 40MG Priyank Lopez M.D. 11/23/2017 Injection Depomedrol 40MG González Rodriguez MD 07/21/2017 Injection Influenza,Unspecified Unknown 12/22/2016 Injection Technetium TC 99M TetrofosmIrving solomon M.D. 05/07/2016 Per Unit Dose Up To 40 Millicuries Injection Immunizations CPT Code Status Date Vaccine Reaction Lot # [id number] Given 06/14/2019 Pneumonia Vaccine No immediate reaction [id number] 85027 Given 03/29/2019 Influenza Virus Vaccine, Quadrivalent, Split, Im Use 6-35mo 05475 Given 04/12/2018 Zoster (Shingles) Vaccine (HZV), Recombinant, Subunit, Adjuvanted 05475 Given 01/21/2018 Influenza Virus Vaccine, Quadrivalent, Split, Preservative Free Q2035 Given 01/16/2016 Afluria Vaccine 09745 Given 01/04/2016 Flu Vaccine Split Virus Preservative Free For Indiv 3Yr Older 24047 Given 01/22/2015 Pneumococcal Conjugate [id number] Vaccine 13 Valent For Intramuscular Use Q2035 Given 01/03/2015 Afluria Vaccine Q2037 Given 01/30/2014 Fluvirin Im 3Yrs And Older 71165 Given 01/30/2014 Influenza Virus Vaccine, [id number] Quadrivalent, Split, Preservative Free 87384 Given 09/21/2013 Zoster (Zostavax) [id number] 44816 Given 01/20/2013 Influenza Virus 3Yrs & Over Q2038 Given 01/10/2012 Fluzone Vaccine 23070 Given 03/26/2011 Influenza Virus 3Yrs & Over 12983 Given 03/27/2010 Pneumonia Vaccine 56745 Given 03/27/2010 Pneumonia Vaccine [id number] 18971 Given 02/28/2010 Influenza Virus 3Yrs & Over 62083 Given 02/21/2009 Influenza Virus 3Yrs & [id number] Over 45854 Given 02/22/2008 Influenza Virus 3Yrs & [id number] Over 89756 Given 11/14/2007 Tetanus And Diptheria (Td) For Adult Use Preservative Free 69949 Given 03/16/2007 Influenza Virus 3Yrs & Over 90223 Given 03/16/2007 Influenza Virus 3Yrs & Over 92425 Given 03/16/2007 Influenza Virus 3Yrs & [id number] Over 48327 Given 02/13/1981 Hepatitis B Vaccine Adult Dosage 40182 Given 10/14/1980 Hepatitis B Vaccine Adult Dosage 01011 Given 05/16/1980 Hepatitis B Vaccine Adult Dosage 94704 Ordered 01/14/2015 Flu Vaccine Split Virus Preservative [...] Result H/L Range Note CBC Auto 06/18/2019 [facility] White Blood 5.2 10^3/uL Normal 3.5-10.[address] [place] [address] [phone] Red Blood Count 4.52 10^6/uL Normal 4.18-5.48 [...] Red Blood Cells % 0.0 Laboratory 06/18/2019 [facility] TSH (Thyroid 0.55 Normal 0.34 -5.[address] Stim Horm) mcIU/[place] [address] [phone] Vitamin B12 819 pg/mL Normal 180-914 1 Vitamin D Total 25(Oh) 25.7 ng/mL Normal 20-50 2 Comp Metabolic 05/18/2019 [facility] Sodium 140 mmol/L Normal 135-[address] [place] [address] [phone] Potassium 4.2 mmol/L Normal 3.5-5.0 Chloride 103 [...] Egfr 85.8 >60 4 Laboratory test 05/18/2019 [facility] Hemoglobin A1c 6.8 % High 4.0-5.[address] (Glyco HGB) [place] [address] [phone] Uric Acid 7.3 mg/dL Normal 4.4-7.6 6 Lipid Profile 05/18/2019 [facility] Triglycerides 188 mg/dL 7 (Trig/Chol/HDL) [address] [place] [address] [phone] Cholesterol 138 mg/dL 8 HDL Cholesterol 43.1 mg/dL 9 LDL Cholesterol 57 mg/dL 10 Urine Microalbumin 05/18/2019 [facility] Ur Microalbumin 17.8 mg /L Random 101 (mg/L) [place] [address] [phone] Urine Creatinine 153.32 mg/dL Urine Microalbumin/Creatinine 11.6 Normal <31 Laboratory test 05/18/2019 [facility] PSA Diagnostic 1.064 ng/ mL 0-4.[address] [place] [address] [phone] 1 Normal Range 180 to 914 Indeterminate [...] in selective patients <6.0%. Please refer to [place] [employer] diabetic care guidelines for further information. 6 FASTING 7 Desirable: <150 Borderline High: 150-199 High: 200-499 Very High: >500 8 Desirable: <200 Borderline High: 200-239 High: >239 9 Low: <40 Desirable: 40-60 High: >60 10 Desirable: <100 Near Optimal: 100-129 Borderline High: 130-159 High: 160-189 Very High: >189 11 Serum levels of PSA measured using the [employer] [place] DXI Hybritech immunoassay should not be interpreted as absolute evidence of the presence or absence of disease. The PSA value should be used in conjunction with other pertinent clinical diagnostic procedures. The values obtained with different assay methods or kits cannot be used interchangeably. Procedures Date Code Description Status 07/19/2019 603570940 Diabetic Retinal Eye Exam Completed 07/19/2019 74272 Holter Monitor Review (24 hr) review & interp only Completed 07/17/2019 43576 ECG Monitor/Recording W/Visual Superimposition Completed Scanning 07/17/2019 23633 ECG Monitor/Recording W/Visual Superimposition Completed Scanning 07/16/2019 05044 ECHO Transthoracic, Real-Time 2D With Doppler And Completed Color Flow 07/16/2019 73436 ECHO Transthoracic, Real-Time 2D With Doppler And Completed Color Flow 06/19/2019 67549 Holter Monitor Review (24 hr)dr review & interp only Completed 06/18/2019 17991 ECG Monitor/Recording W/Visual Superimposition Completed Scanning 06/18/2019 20182 ECG Monitor/Recording W/Visual Superimposition Completed Scanning 06/15/2019 16545 EKG Tracing & Interpretation Completed 07/18/2018 045105797 Diabetic Retinal Eye Exam Completed 09/09/2017 134265400 Diabetic Retinal Eye Exam Completed 2016 300960502 Diabetic Retinal Eye Exam Completed 09/08/2015 159483156 Diabetic Retinal Eye Exam Completed 08/05/2014 343212826 Diabetic Retinal Eye Exam Completed 01/02/2014 97117299 Colonoscopy Completed 07/16/2013 839322070 Diabetic Retinal Eye Exam Completed 04/15/2013 512654235 Diabetic Retinal Eye Exam Completed 04/04/2012 708075428 Diabetic Retinal Eye Exam Completed 10/01/2003 24299427 Colonoscopy Completed Medical Devices Description No Information Available Encounters Type Date Location Provider Dx Diagnosis Office Visit 06/28/2019 [facility] Agatha Thnorma, I48.21 Permanent atrial 2:20p GRAIN INSPECTOR fibrillation I10 Essential (primary) hypertension E78.5 Hyperlipidemia, unspecified I77.819 Aortic ectasia, unspecified site I49.3 Ventricular premature depolarization Office Visit 06/15/2019 2:00p [facility] Agatha I48.21 Permanent atrial Thuman, GRAIN INSPECTOR fibrillation R53.83 Other fatigue I77.819 Aortic ectasia, [...] Woo M.D. 07/16/2019 I77.810 Thoracic aortic ectasia [place] [facility] Schedule 07/16/2019 I48.21 Permanent atrial fibrillation Katharina Woo M.D. 07/16/2019 I48.21 Permanent atrial fibrillation [place] [facility] Schedule 07/16/2019 I10 Essential (primary) hypertension Katharina Woo M.D. 07/16/2019 I10 Essential (primary) hypertension [place] [facility] Schedule 07/16/2019 I77.819 Aortic ectasia, unspecified site Katharina Woo M.D. 07/16/2019 I77.819 Aortic ectasia, unspecified site [place] [facility] Schedule 06/28/2019 I48.21 Permanent atrial fibrillation Agatha Jose, GRAIN INSPECTOR 06/28/2019 I10 Essential (primary) hypertension Agatha Jose, GRAIN INSPECTOR 06/28/2019 E78.5 Hyperlipidemia, unspecified Agatha Thuman, GRAIN INSPECTOR 06/28/2019 I77.819 Aortic ectasia, unspecified site Agatha Jose, GRAIN INSPECTOR 06/28/2019 I49.3 Ventricular premature depolarization Agatha Jose, GRAIN INSPECTOR 06/19/2019 I48.21 Permanent atrial fibrillation Katharina Woo [...] 10:30 am - Nurse Visit cc at [facility]09/04/2019 12:00 pm - Nurse Visit cc at [facility]12/14/2019 10 :40 am - Germaine Rich MD at [facility] Internal Medicine - [facility]07/25/2019 - Katharina Woo M.D.I49.3 Ventricular premature depolarizationNew Orders:24 hour holter monitor, Scheduled: 09/04/19I48.91 Unspecified atrial ufwavqfdtsajU51.810 Thoracic aortic ectasiaNew Orders:Echocardiogram, Ordered: 07/25/19I48.21 Permanent atrial fibrillationFollow up:one yr ovI10 Essential ( primary) nufkhlrbpwksG14.5 Hyperlipidemia, yslxlbmjdpmZ16.9 Obesity, unspecified Functional Status Description No Information Available Mental Status Description No Information Available Referrals Refer to Dr Reason for Referral Status Appt Date Matteo Perkins MD Sent [address] [place] [address] [phone] Maribel Mclain MD Sent 07/30/[address] [place] [address] [phone]
--- OUTSIDE RECORDS SUMMARY | 2019-08-24 11:14 | XMS REPORT | Continuity of Care Document ---
:1955 External Reference #:[id number] Author Name Nga Marie PA-C Address [address] [place] [id number] Care Team Providers Name Role Phone Agatha Jose NP Care Team Information Flamer After Lasting [phone] Germaine Rich M.D. Care Team Information Flamer After Lasting [phone] Problems Active Problems Provider Date Type 2 diabetes mellitus Nga Marie PA-C Onset: 07/08/2019 Essential hypertension Nga Marie PA-C Onset: 07/08/2019 Chronic atrial fibrillation Nga Marie PA-C Onset: 07/03/2019 Diverticular disease of colon Nga Marie PA-C Onset: 07/03/2019 Social History Type Date Description Comments Sex Unknown Tobacco Use Start: Unknown End: Unknown Patient is a former smoker Smoking Status Reviewed: 07/03/19 Patient is a former smoker Allergies, Adverse Reactions, Alerts Active Allergies Reaction Severity Comments Date Naproxen esophageal ulcer 07/03/2019 Phenergan 07/03/2019 Custar 07/03/2019 Celebrex Nausea 07/03/2019 Xarelto GI bleed 07/03/2019 Honey Bee Venom 07/03/2019 Metoprolol Diarrhea, Nausea 07/03/2019 Medications Active Medications SIG Qnty Indications Ordering Provider Date Benadryl Allergy 1-2 per night as Unknown 25mg needed allergies Capsules Hydrocodone-Acetaminop Unknown hen 7.5-325mg Tablets Aspirin 81 1 by mouth every Unknown 81mg Tablets day DR Miller Alvarez inhale 1 puff by Unknown mouth every day 100mcg/Act Aerosol Nasonex 2 sprays in each Unknown 50mcg/Act nostril daily Suspension Melatonin Unknown 10mg Capsules Tamsulosin HCL Take One Capsule Unknown 0.4mg By Mouth Every Day Capsules Dok Unknown 100mg Capsules Vitamin B-6 Unknown 100mg Tablets Citalopram Unknown Hydrobromide 40mg Tablets Lovastatin Unknown 20mg Tablets Omeprazole Take One Capsule Unknown 20mg Capsules By Mouth Every Day DR Colchicine Take 2 Caplets By Unknown 0.6mg Capsules Mouth Today Then 1 Caplet Daily For 3 To 7 Days For Gout Proair HFA Inl 2 PFS PO Q 4 H Unknown 108(90Base) prn mcg/Act Aerosol Losartan Take One Tablet By Unknown Potassium/Hydrochlorot Mouth Every Day hiazide 50-12.5mg Tablets Amlodipine Besylate Take One Tablet By Unknown 10mg Mouth Every Day Tablets Gabapentin Unknown 300mg Capsules Diltiazem HCL Unknown 120mg Tablets Immunizations Description No Information Available Vital Signs Date Vital Result Comment 07/03/2019 12:52pm Height 66.5 inches 5'6.50" Weight 225.00 lb BP Systolic 139 mmHg BP Diastolic 93 mmHg Heart Rate 73 /min BMI (Body Mass Index) 35.8 kg/m2 Results Test Acquired Date Facility Test Result H/L Range Note CBC Auto Diff 06/18/2019 N2N/CCD Import White Blood 5.2 10^3/uL 3.5- 10.8 Count Red Blood Count 4.52 10^6/uL 4.18-5.48 Hemoglobin 14.5 g/dL 14.0-18.0 Hematocrit 43 % 42-52 Mean Corpuscular Volume 95 fL High 80-94 Mean Corpuscular Hemoglobin 32 pg High 27-31 Mean Corpuscular HGB Conc 34 g/dL 31-36 Red Cell Distribution Width 14 % 10-15 Platelet Count 225 10^3/uL 150-450 Mean Platelet Volume 7.7 fL 7.4-10.4 Abs Neutrophils 3.4 10^3/uL 1.5-7.7 Abs Lymphocytes 1.1 10^3/uL 1.0-4.8 Abs Monocytes 0.5 10^3/uL 0-0.8 Abs Eosinophils 0.1 10^3/uL 0-0.6 Abs Basophils 0.0 10^3/uL 0-0.2 Abs Nucleated RBC 0.0 10^3/uL Granulocyte % 65.1 % Lymphocyte % 22.1 % Monocyte % 10.1 % Eosinophil % 2.3 % Basophil % 0.4 % Nucleated Red Blood Cells % 0.0 1 Lab Results 06/18/2019 N2N/CCD Import TSH (Thyroid Stim 0.55 mcIU/mL 0.34-5.60 Horm) Vitamin B12 819 pg/mL 180-914 1 Vitamin D Total 25(Oh) 25.7 ng/mL 20-50 2 Lab Results 05/18/2019 N2N/CCD Import Sodium 140 mmol/L 135-145 3 Potassium 4.2 mmol/L 3.5-5.0 Chloride 103 mmol/L 101-111 Co2 Carbon Dioxide 28 mmol/L 22-32 Anion Gap 9 mmol/L 2-11 Glucose 129 mg/dL High 70-100 Blood Urea Nitrogen 15 mg/dL 6-24 Creatinine 1.05 mg/dL 0.67-1.17 BUN/Creatinine Ratio 14.3 1 8-20 Calcium 9.5 mg/dL 8.6-10.3 Total Protein 7.0 g/dL 6.4-8.9 Albumin 4.4 g/dL 3.2-5.2 Globulin 2.6 g/dL 2-4 Albumin/Globulin Ratio 1.7 1 1-3 Total Bilirubin 0.70 mg/dL 0.2-1.0 Alkaline Phosphatase 78 U/L 34-104 Alt 21 U/L 7-52 Ast 23 U/L 13-39 Egfr Non- 70.9 1 Egfr 85.8 1 4 Hemoglobin A1c (Glyco HGB) 6.8 % High 4.0-5.6 5 Uric Acid 7.3 mg/dL 4.4-7.6 6 Lipid Profile (Trig/Chol/HDL) 05/18/2019 N2N/CCD Import Triglycerides 188 mg/dL 7 Cholesterol 138 mg/dL 8 HDL Cholesterol 43.1 mg/dL 9 LDL Cholesterol 57 mg/dL 10 Urine Microalbumin 05/18/2019 N2N/CCD Import Ur Microalbumin 17.8 mg/L Random (mg/L) Urine Creatinine 153.32 mg/dL Urine Microalbumin/Creatinine 11.6 1 1 Normal Range 180 to 914 Indeterminate [...] in selective patients <6.0%. Please refer to [place] [employer] diabetic care guidelines for further information. 6 FASTING 7 Desirable: <150 Borderline High: 150-199 High: 200-499 Very High: >500 8 Desirable: <200 Borderline High: 200-239 High: >239 9 Low: <40 Desirable: 40-60 High: >60 10 Desirable: <100 Near Optimal: 100-129 Borderline High: 130-159 High: 160-189 Very High: >189 Procedures Description No Information Available Medical Devices Description No Information Available Encounters Description No Information Available Assessments Date Code Description Provider 07/03/2019 I48.20 Chronic atrial fibrillation, unspecified Nga Marie PA-C 07/03/2019 K57.30 Diverticulosis of large intestine R[place] Richter without perforation or abscess without bleeding Plan of Treatment No Information Available Functional Status Description No Information Available Mental Status Description No Information Available Referrals Description No Information Available
--- OUTSIDE RECORDS SUMMARY | 2019-08-24 11:14 | XMS REPORT | Continuity of Care Document ---
:1955 External Reference #:[id number] Author Name Maribel Mclain MD (transmitted by agent of provider Jeannie Robins) Address [address], [address] [place] [address] Care Team Providers Name Role Phone Katharina Woo MD [facility] - Care Team Information Coach Mechanic Cardiovascular Disease Toño Acuna MD - Gastroenterology Care Team Information Coach Mechanic [phone] [facility] - Sleep Disorder Care Team Information Coach Mechanic [phone] Diagnostic Roseanne Fulton MD - Surgery Care Team Information Coach Mechanic [phone] Dahiana Schaefer M.D. - Surgery of Care Team Information Coach Mechanic the Hand Kahlil Connor MD - Urology Care Team Information Coach Mechanic [phone] Jaxon Rocha MD - Orthopaedic Care Team Information Coach Mechanic [phone] Surgery Marge Castaneda MD - Care Team Information Coach Mechanic [phone] Dermatology Germaine Rich M.D. - Family Medicine Care Team Information Coach Mechanic [phone] Melida Ortega MD - Sports Medicine Care Team Information Coach Mechanic [phone] Problems Active Problems Provider Date Chronic atrial [...] Kin Steele M.D.,[facility] Onset: 06/02/2018 Social History Type Date Description [...] I49.3 Agatha Jose, 06/28/2019 120mg Tablets day PILL MACHINE OPERATOR Norvasc 1 by mouth every 90tabs Agatha Norwoodnorma, 06/21/2019 5mg Tablets day PILL MACHINE OPERATOR Accu-Check Vivi Chem check blood 100units E11.9 Lucy Chase, 02/02/2019 Strips sugars twice a M.D., FACP [facility] day. dx e11.9 Proair HFA 2 puffs [...] Kerline Gordon MD 08/15/2018 Lancets glucose testing [facility] test twice daily Vitamin B-6 take 1 [...] Medication SIG Qnty Indications Ordering Provider Date [facility] pharmacy administered Unknown 07/29/2018 Injection Depomedrol 40MG Priyank Lopez M.D. 11/23/2017 Injection Depomedrol 40MG González Rodriguez MD 07/21/2017 Injection Influenza,Unspecified Unknown 12/22/2016 Injection Technetium TC 99M TetrofIrving rojas M.D. 05/07/2016 Per Unit Dose Up To 40 Millicuries Injection Immunizations CPT Code Status Date Vaccine Reaction Lot # [id number] Given 06/14/2019 Pneumonia Vaccine No immediate reaction [id number] 51892 Given 03/29/2019 Influenza Virus Vaccine, Quadrivalent, Split, Im Use 6-35mo 00401 Given 04/12/2018 Zoster (Shingles) Vaccine (HZV), Recombinant, Subunit, Adjuvanted 09668 Given 01/21/2018 Influenza Virus Vaccine, Quadrivalent, Split, Preservative Free Q2035 Given 01/16/2016 Afluria Vaccine 99223 Given 01/04/2016 Flu Vaccine Split Virus Preservative Free For Indiv 3Yr Older 80308 Given 01/22/2015 Pneumococcal Conjugate [id number] Vaccine 13 Valent For Intramuscular Use Q2035 Given 01/03/2015 Afluria Vaccine Q2037 Given 01/30/2014 Fluvirin Im 3Yrs And Older 44080 Given 01/30/2014 Influenza Virus Vaccine, [id number] Quadrivalent, Split, Preservative Free 21141 Given 09/21/2013 Zoster (Zostavax) [id number] 84638 Given 01/20/2013 Influenza Virus 3Yrs & Over Q2038 Given 01/10/2012 Fluzone Vaccine 66387 Given 03/26/2011 Influenza Virus 3Yrs & Over 57578 Given 03/27/2010 Pneumonia Vaccine 82032 Given 03/27/2010 Pneumonia Vaccine [id number] 67901 Given 02/28/2010 Influenza Virus 3Yrs & Over 33970 Given 02/21/2009 Influenza Virus 3Yrs & [id number] Over 12425 Given 02/22/2008 Influenza Virus 3Yrs & [id number] Over 07693 Given 11/14/2007 Tetanus And Diptheria (Td) For Adult Use Preservative Free 72878 Given 03/16/2007 Influenza Virus 3Yrs & Over 59244 Given 03/16/2007 Influenza Virus 3Yrs & Over 46847 Given 03/16/2007 Influenza Virus 3Yrs & [id number] Over 90691 Given 02/13/1981 Hepatitis B Vaccine Adult Dosage 95681 Given 10/14/1980 Hepatitis B Vaccine Adult Dosage 90504 Given 05/16/1980 Hepatitis B Vaccine Adult Dosage 86413 Ordered 01/14/2015 Flu Vaccine Split Virus Preservative [...] Result H/L Range Note CBC Auto 06/18/2019 [facility] White Blood 5.2 10^3/uL Normal 3.5-10.[address] [place], [place] [id number] [phone] Red Blood Count 4.52 10^6/uL Normal 4.18-5.48 [...] Red Blood Cells % 0.0 Laboratory 06/18/2019 [facility] TSH (Thyroid 0.55 Normal 0.34 -5.[address] Stim Horm) mcIU/[place] [address] [phone] Vitamin B12 819 pg/mL Normal 180-914 1 Vitamin D Total 25(Oh) 25.7 ng/mL Normal 20-50 2 Comp Metabolic 05/18/2019 [facility] Sodium 140 mmol/L Normal 135-[address] [place] [address] [phone] Potassium 4.2 mmol/L Normal 3.5-5.0 Chloride 103 [...] Egfr 85.8 >60 4 Laboratory test 05/18/2019 [facility] Hemoglobin A1c 6.8 % High 4.0-5.6 5 finding [address] [facility] (Glyco [place]) [place] [address] [phone] Uric Acid 7.3 mg/dL Normal 4.4-7.6 6 Lipid Profile 05/18/2019 [facility] Triglycerides 188 mg/dL 7 (Trig/Chol/HDL) [address] [place] [address] [phone] Cholesterol 138 mg/dL 8 HDL Cholesterol 43.1 mg/dL 9 LDL Cholesterol 57 mg/dL 10 Urine Microalbumin 05/18/2019 [facility] Ur Microalbumin 17.8 mg /L Random [facility] (mg/L) [place] [address] [phone] Urine Creatinine 153.32 mg/dL Urine Microalbumin/Creatinine 11.6 Normal <31 Laboratory test 05/18/2019 [facility] PSA Diagnostic 1.064 ng/ mL 0-4.0 11 [address] [place] [address] [phone] 1 Normal Range 180 to 914 Indeterminate [...] in selective patients <6.0%. Please refer to [place] [employer] diabetic care guidelines for further information. 6 FASTING 7 Desirable: <150 Borderline High: 150-199 High: 200-499 Very High: >500 8 Desirable: <200 Borderline High: 200-239 High: >239 9 Low: <40 Desirable: 40-60 High: >60 10 Desirable: <100 Near Optimal: 100-129 Borderline High: 130-159 High: 160-189 Very High: >189 11 Serum levels of PSA measured using the [employer] DXI Hybritech immunoassay should not be interpreted as absolute evidence of the presence or absence of disease. The PSA value should be used in conjunction with other pertinent clinical diagnostic procedures. The values obtained with different assay methods or kits cannot be used interchangeably. Procedures Date Code Description Status 08/09/2019 57168 Sleep Study Unattended,HRT Rate,Oxygen Sat,Resp Completed Effort/Airflow 07/19/2019 71134 Holter Monitor Review (24 hr)dr review & interp only Completed 07/19/2019 127962231 Diabetic Retinal Eye Exam Completed 07/17/2019 37885 ECG Monitor/Recording W/Visual Superimposition Completed Scanning 07/17/2019 49335 ECG Monitor/Recording W/Visual Superimposition Completed Scanning 07/16/2019 08875 ECHO Transthoracic, Real-Time 2D With Doppler And Completed Color Flow 07/16/2019 17120 ECHO Transthoracic, Real-Time 2D With Doppler And Completed Color Flow 06/19/2019 67636 Holter Monitor Review (24 hr)dr review & interp only Completed 06/18/2019 64987 ECG Monitor/Recording W/Visual Superimposition Completed Scanning 06/18/2019 07689 ECG Monitor/Recording W/Visual Superimposition Completed Scanning 06/15/2019 38920 EKG Tracing & Interpretation Completed 07/18/2018 549596042 Diabetic Retinal Eye Exam Completed 09/09/2017 297837514 Diabetic Retinal Eye Exam Completed 2016 239112754 Diabetic Retinal Eye Exam Completed 09/08/2015 486907328 Diabetic Retinal Eye Exam Completed 08/05/2014 941439424 Diabetic Retinal Eye Exam Completed 01/02/2014 02945237 Colonoscopy Completed 07/16/2013 143197078 Diabetic Retinal Eye Exam Completed 04/15/2013 277332760 Diabetic Retinal Eye Exam Completed 04/04/2012 817620064 Diabetic Retinal Eye Exam Completed 10/01/2003 95879200 Colonoscopy Completed Medical Devices Description No Information Available Encounters Type Date Location Provider Dx Diagnosis Office Visit 08/17/2019 [facility] G47.33 Obstructive sleep 1:00p [facility] Joe apnea (adult) Che (pediatric) I49.9 Cardiac arrhythmia, unspecified E66.9 Obesity, unspecified Z68.36 Body mass index (BMI) 36.0-36.9, adult Office Visit 07/30/2019 1:00p [facility] Maribel G47.9 Sleep disorder, [facility] unspecified Manager Asset Management G47.33 Obstructive sleep apnea (adult) (pediatric) Office Visit 07/25/2019 [place] Katharina SJillian I49.3 Ventricular 4:20p Cardiology Melissa Woo premature depolarization I48.91 Unspecified atrial fibrillation I77.810 Thoracic aortic ectasia I48.21 Permanent atrial fibrillation I10 Essential (primary) hypertension E78.5 Hyperlipidemia, unspecified E66.9 Obesity, unspecified Office Visit 06/28/2019 2:20p [place] [facility] Agatha I48.21 Permanent atrial Thuman, PILL MACHINE OPERATOR fibrillation I10 Essential (primary) hypertension E78.5 Hyperlipidemia, unspecified I77.819 Aortic ectasia, unspecified site I49.3 Ventricular premature depolarization Office Visit 06/15/2019 2:00p [facility] Agatha I48.21 Permanent atrial Thuman, PILL MACHINE OPERATOR fibrillation R53.83 Other fatigue I77.819 Aortic ectasia, unspecified site I27.20 Pulmonary hypertension, unspecified Assessments Date Code Description Provider 08/17/2019 G47.33 Obstructive sleep apnea (adult) Dahiana Joe NP (pediatric) 08/17/2019 I49.9 Cardiac arrhythmia, unspecified Dahiana Joe, [facility] 08/17/2019 E66.9 Obesity, unspecified Dahiana Joe, [facility] 08/17/2019 Z68.36 Body mass index (BMI) 36.0-36.9, adult Dahiana Joe NP 08/09/2019 G47.33 Obstructive sleep apnea (adult) Maribel Mclain MD (pediatric) 07/30/2019 G47.9 Sleep disorder, unspecified Maribel Mclain [...] Woo M.D. 07/16/2019 I77.810 Thoracic aortic ectasia [place] ECHO Schedule 07/16/2019 I48.21 Permanent atrial fibrillation Katharina Woo M.D. 07/16/2019 I48.21 Permanent atrial fibrillation [place] ECHO Schedule 07/16/2019 I10 Essential (primary) hypertension Katharina Woo M.D. 07/16/2019 I10 Essential (primary) hypertension [place] ECHO Schedule 07/16/2019 I77.819 Aortic ectasia, unspecified site Katharina Woo M.D. 07/16/2019 I77.819 Aortic ectasia, unspecified site [place] ECHO Schedule 06/28/2019 I48.21 Permanent atrial fibrillation Agatha Jose, PILL MACHINE OPERATOR 06/28/2019 I10 Essential (primary) hypertension Agatha Jose, PILL MACHINE OPERATOR 06/28/2019 E78.5 Hyperlipidemia, unspecified Agatha Thuman, PILL MACHINE OPERATOR 06/28/2019 I77.819 Aortic ectasia, unspecified site Agatha Jose, PILL MACHINE OPERATOR 06/28/2019 I49.3 Ventricular premature depolarization Agatha Jose, PILL MACHINE OPERATOR 06/19/2019 I48.21 Permanent atrial fibrillation Katharina [...] 06/15/2019 I48.21 Permanent atrial fibrillation Agatha Jose, PILL MACHINE OPERATOR 06/15/2019 I49.3 Ventricular premature depolarization [place] M.D. 06/15/2019 R53.83 Other fatigue Agatha Thnorma, PILL MACHINE OPERATOR 06/15/2019 R94.31 Abnormal electrocardiogram [ECG] [EKG] [place] M.D. 06/15/2019 I77.819 Aortic ectasia, unspecified site Agatha Jose NP 06/15/2019 I27.20 Pulmonary hypertension, unspecified Agatha Jose NP 06/14/2019 Z00.00 Encounter for general adult medical Josh Galicia NP examination without abnormal findings 06/14/2019 E11.9 Type 2 diabetes mellitus without Josh Frida, PILL MACHINE OPERATOR complications 06/14/2019 I10 Essential (primary) hypertension Joshrufus Galicia, [facility] 06/14/2019 I48.20 Chronic atrial fibrillation, Josh Galicia PILL MACHINE OPERATOR unspecified 06/14/2019 E78.2 Mixed hyperlipidemia Joshrufus Galicia, [facility] 06/14/2019 R53.83 Other fatigue Joshrufus Galicia NP 06/14/2019 Z23 Encounter for immunization Josh Galicia NP 06/14/2019 J45.20 Mild intermittent asthma, Josh Galicia NP uncomplicated Plan of Treatment Future Appointment(s):10/22/2019 2:00 pm - [facility]iana Joe NP at [facility]09/05/2019 10:30 am - Nurse Visit cc at [place] Zkjcsuemkw47/21/2020 12:00 pm - Nurse Visit cc at [place] Vfurjiavva62/31/ 2020 10:40 am - Germaine Rich MD at [facility] Internal Medicine - [facility]cm[facility]08/17/2019 - D[place]iana Joe NPG47.33 Obstructive sleep apnea (adult) (pediatric)Follow up:6-8 weeks ([facility])Recommendations:You are being set up with CPAP for your sleep apnea through [facility] . They will call you to set up an appointment to get fit for a mask and bean picker your machine. If insurance does not [...] please call the [facility] at [phone] If you have any sleepiness while driving you MUST avoid operating a vehicle or machinery. If you feel tired while driving, drum puller and take a nap or switch drivers. If you know you are sleepy and need to go somewhere, arrange for a ride or use public transportation. It is very important to not risk your safety or the safety of others.I49.9 Cardiac arrhythmia, fkqfuxihjcaP49.9 Obesity, clfijivvbpgH30.36 Body mass index (BMI) 36.0-36.9, adult Functional Status Description No Information Available Mental Status Description No Information Available Referrals Refer to Dr Reason for Referral Status Appt Date Matteo Perkins MD Sent [address] [place] [address] [phone] Maribel Mclain MD Sent 07/30/[address] [place] [address] [phone]
--- OUTSIDE RECORDS SUMMARY | 2019-08-24 11:14 | XMS REPORT | Continuity of Care Document ---
:1955 External Reference #:[id number] Author Name Iván Rosario M.D. Address [address] [place] [address] Care Team Providers Name Role Phone Germaine Rich MD - Internal Medicine Care Team Information Product Info Specialist Katharina Woo M.D. - Care Team Information Product Info Specialist [phone] Cardiovascular Disease Kahlil Cruz M.D. - Urology Care Team Information Product Info Specialist [phone] Problems Active Problems Provider Date Essential hypertension Onset: 08/05/2014 Pure hypercholesterolemia Onset: 08/05/2014 Type 2 diabetes mellitus Onset: Note: Diet Control Aphakia Iván Rosario M.D. Onset: 09/08/2015 Corneal edema Iván Rosario M.D. Onset: 09/08/2015 Type 2 diabetes mellitus with mild Iván Rosario M.D. Onset: 09/08/2015 nonproliferative diabetic retinopathy without macular edema Type 2 diabetes mellitus with mild Iván Rosario M.D. 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 Onset: 2016 Atrial fibrillation Onset: Ventricular tachycardia Onset: Bipolar I disorder Onset: Benign prostatic hypertrophy without outflow Onset: obstruction Social History Type Date Description Comments Sex Unknown ETOH Use Denies alcohol use Tobacco Use Start: Unknown End: Unknown Patient is a former smoker Recreational Drug Use Denies Drug Use Smoking Status Reviewed: 07/19/19 Patient is a former smoker Allergies, Adverse Reactions, Alerts Active Allergies Reaction Severity Comments Date Anaprox 08/05/2014 Phenergan 08/05/2014 [place] 08/05/2014 Celebrex 08/05/2014 Bee Stings 08/05/2014 Xarelto 07/18/2018 Naproxen 07/18/2018 Medications Active Medications SIG Qnty Indications Ordering Provider Date Losartan Take One Tablet Unknown Potassium/Hydrochlorot By Mouth Every hiazide Day 50-12.5mg Tablets Diltiazem HCL Take One Tablet Unknown 120mg By Mouth Every Tablets Day Arnuity Ellipta Unknown 100mcg/Act Aerosol Lovastatin Unknown 20mg Tablets Aspirin Unknown 81mg Tablets [facility] Daily Multiple For Unknown Men Tablets Benicar HCT Unknown 40-25mg Tablets Omeprazole Unknown 20mg Capsules DR Hydrocodone take 1 tablet Unknown Bitartrate/Acetaminoph every 4 hours to en 6 hours if needed 7.5-300mg Tablets pain Amlodipine Besylate take 1 tablet by Unknown 10mg mouth once daily Tablets Nasonex instill 2 sprays Unknown 50mcg/Act into each nostril Suspension once daily Tamsulosin HCL Unknown 0.4mg Capsules Vitamin B-6 Unknown 100mg Tablets Colchicine take 1 tablet by Unknown 0.6mg Tablets mouth once daily if needed Ra Melatonin take 1 tablet at Unknown 10mg Tablets bedtime Gabapentin Unknown 300mg Capsules Citalopram Unknown Hydrobromide 40mg Tablets Immunizations Description No Information Available Vital Signs Description No Information Available Results Description No Information Available Procedures Description No Information Available Medical Devices Description No Information Available Encounters Description No Information Available Assessments Date Code Description Provider 07/19/2019 E11.3292 Type 2 diabetes mellitus with mild Iván Rosario M.D. nonproliferative diabetic 07/19/2019 H27.03 Aphakia, bilateral Iván Rosario M.D. 07/19/2019 H18.20 Unspecified corneal edema Iván Rosario M.D. 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 Plan of Treatment 07/19/2019 - Iván Rosario M.D.E11.0614 Type 2 diabetes mellitus with mild nonproliferative diabeticComments:Smoking can increase the risk of developing or worsening any eye related disease, as well as affect your overall health. If you are a smoker, we strongly recommend that you quit.If you are not a smoker , we strongly recommend that you do not [...] to call our office at .H27.03 Aphakia, kofygtvfqM92.20 Unspecified corneal auwhuH74.291 Other optic atrophy, right eyeComments:You have optic atrophy in your right eye. This means that the optic nerve is damaged and can cause vision difficulty. Functional Status Description No Information Available Mental Status Description No Information Available Referrals Description No Information Available
--- OUTSIDE RECORDS SUMMARY | 2019-08-24 11:14 | XMS REPORT | Continuity of Care Document ---
:1955 External Reference #:[id number] Author Name Dahiana Joe NP (transmitted by agent of provider Jeannie Robins) Address [address], [address] [place] [address] Care Team Providers Name Role Phone Katharina Woo MD [facility] - Care Team Information Indirect Sales Representative Cardiovascular Disease Toño Acuna MD - Gastroenterology Care Team Information Indirect Sales Representative [facility] - Sleep Disorder Care Team Information Indirect Sales Representative Diagnostic Roseanne Fulton MD - Surgery Care Team Information Indirect Sales Representative Dahiana Schaefer M.D. - Surgery of Care Team Information Indirect Sales Representative the Hand Kahlil Connor MD - Urology Care Team Information Indirect Sales Representative [phone] Jaxon Rocha MD - Orthopaedic Care Team Information Indirect Sales Representative [phone] Surgery Marge Castaneda MD - Care Team Information Indirect Sales Representative [phone] Dermatology Germaine Rich M.D. - Family Medicine Care Team Information Indirect Sales Representative Melida Ortega MD - Sports Medicine Care Team Information Indirect Sales Representative Problems Active Problems Provider Date Chronic atrial fibrillation Katharina Woo M.D. Onset: 04/07/2015 Note: not anticoagulated due to lower GI bleed, patient refusal Bipolar disorder Kin Steele M.D.,[facility] Onset: 05/01/2007 Malignant essential hypertension Katharina Woo [...] M.D. Onset: 07/31/2015 Primary gout Kin Steele M.D.,[facility] Onset: 06/02/2018 Social History Type Date [...] I49.3 Agatha Jose, 06/28/2019 120mg Tablets day FOOD SERVICE Norvasc 1 by mouth every 90tabs Agatha Enmanorma, 06/21/2019 5mg Tablets day FOOD SERVICE Accu-Check Vivi Chem check blood 100units E11.9 Lucy Chase, 02/02/2019 Strips sugars twice a M.D., FACP [facility] [place] e11.9 Proair HFA 2 puffs [...] Kerline Gordon MD 08/15/2018 Lancets glucose testing [facility] [place] twice daily Vitamin B-6 take 1 [...] Medication SIG Qnty Indications Ordering Provider [facility] administered Unknown 07/29/2018 Injection Depomedrol 40MG Priyank Lopez M.D. 11/23/2017 Injection Depomedrol 40MG González Rodriguez MD 07/21/2017 Injection Influenza,Unspecified Unknown 12/22/2016 Injection Technetium TC 99M TetrofIrving rojas M.D. 05/07/2016 Per Unit Dose Up To 40 Millicuries Injection Immunizations CPT Code Status Date Vaccine Reaction Lot # [id number] Given 06/14/2019 Pneumonia Vaccine No immediate reaction [id number] 39932 Given 03/29/2019 Influenza Virus Vaccine, Quadrivalent, Split, Im Use 6-35mo 64763 Given 04/12/2018 Zoster (Shingles) Vaccine (HZV), Recombinant, Subunit, Adjuvanted 00910 Given 01/21/2018 Influenza Virus Vaccine, Quadrivalent, Split, Preservative Free Q2035 Given 01/16/2016 Afluria Vaccine 30360 Given 01/04/2016 Flu Vaccine Split Virus Preservative Free For Indiv 3Yr Older 35845 Given 01/22/2015 Pneumococcal Conjugate [id number] Vaccine 13 Valent For Intramuscular Use Q2035 Given 01/03/2015 Afluria Vaccine Q2037 Given 01/30/2014 Fluvirin Im 3Yrs And Older 81691 Given 01/30/2014 Influenza Virus Vaccine, [id number] Quadrivalent, Split, Preservative Free 54330 Given 09/21/2013 Zoster (Zostavax) [id number] 97542 Given 01/20/2013 Influenza Virus 3Yrs & Over Q2038 Given 01/10/2012 Fluzone Vaccine 28756 Given 03/26/2011 Influenza Virus 3Yrs & Over 50137 Given 03/27/2010 Pneumonia Vaccine 46833 Given 03/27/2010 Pneumonia Vaccine [id number] 38179 Given 02/28/2010 Influenza Virus 3Yrs & Over 00251 Given 02/21/2009 Influenza Virus 3Yrs & [id number] Over 78297 Given 02/22/2008 Influenza Virus 3Yrs & [id number] Over 99188 Given 11/14/2007 Tetanus And Diptheria (Td) For Adult Use Preservative Free 89188 Given 03/16/2007 Influenza Virus 3Yrs & Over 19865 Given 03/16/2007 Influenza Virus 3Yrs & Over 10750 Given 03/16/2007 Influenza Virus 3Yrs & [id number] Over 45588 Given 02/13/1981 Hepatitis B Vaccine Adult Dosage 01424 Given 10/14/1980 Hepatitis B Vaccine Adult Dosage 91281 Given 05/16/1980 Hepatitis B Vaccine Adult Dosage 33879 Ordered 01/14/2015 Flu Vaccine Split Virus Preservative [...] Result H/L Range Note CBC Auto 06/18/2019 [facility] White Blood 5.2 10^3/uL Normal 3.5-10.[address] [place] [address] [phone] Red Blood Count 4.52 10^6/uL Normal 4.18-5.48 [...] Red Blood Cells % 0.0 Laboratory 06/18/2019 [facility] TSH (Thyroid 0.55 Normal 0.34 -5.[address] Stim Horm) mcIU/[place] [address] [phone] Vitamin B12 819 pg/mL Normal 180-914 1 Vitamin D Total 25(Oh) 25.7 ng/mL Normal 20-50 2 Comp Metabolic 05/18/2019 [facility] Sodium 140 mmol/L Normal 135-[address] [place] [address] [phone] Potassium 4.2 mmol/L Normal 3.5-5.0 Chloride 103 [...] Egfr 85.8 >60 4 Laboratory test 05/18/2019 [facility] Hemoglobin A1c 6.8 % High 4.0-5.6 5 finding 101 [facility] (Glyco HGB) [place] [address] [phone] Uric Acid 7.3 mg/dL Normal 4.4-7.6 6 Lipid Profile 05/18/2019 [facility] Triglycerides 188 mg/dL 7 (Trig/Chol/HDL) [address] [place] [address] [phone] Cholesterol 138 mg/dL 8 HDL Cholesterol 43.1 mg/dL 9 LDL Cholesterol 57 mg/dL 10 Urine Microalbumin 05/18/2019 [facility] Ur Microalbumin 17.8 mg /L Random [facility] (mg/L) [place] [address] [phone] Urine Creatinine 153.32 mg/dL Urine Microalbumin/Creatinine 11.6 Normal <31 Laboratory test 05/18/2019 [facility] PSA Diagnostic 1.064 ng/ mL 0-4.0 11 [address] [place] [address] [phone] 1 Normal Range 180 to 914 Indeterminate [...] in selective patients <6.0%. Please refer to [employer] diabetic care guidelines for further information. 6 FASTING 7 Desirable: <150 Borderline High: 150-199 High: 200-499 Very High: >500 8 Desirable: <200 Borderline High: 200-239 High: >239 9 Low: <40 Desirable: 40-60 High: >60 10 Desirable: <100 Near Optimal: 100-129 Borderline High: 130-159 High: 160-189 Very High: >189 11 Serum levels of PSA measured using the [employer] DXI Hybritech immunoassay should not be interpreted as absolute evidence of the presence or absence of disease. The PSA value should be used in conjunction with other pertinent clinical diagnostic procedures. The values obtained with different assay methods or kits cannot be used interchangeably. Procedures Date Code Description Status 07/19/2019 634108309 Diabetic Retinal Eye Exam Completed 07/19/2019 05242 Holter Monitor Review (24 hr)dr review & interp only Completed 07/17/2019 52043 ECG Monitor/Recording W/Visual Superimposition Completed Scanning 07/17/2019 86823 ECG Monitor/Recording W/Visual Superimposition Completed Scanning 07/16/2019 28513 ECHO Transthoracic, Real-Time 2D With Doppler And Completed Color Flow 07/16/2019 58296 ECHO Transthoracic, Real-Time 2D With Doppler And Completed Color Flow 06/19/2019 85161 Holter Monitor Review (24 hr)dr review & interp only Completed 06/18/2019 95146 ECG Monitor/Recording W/Visual Superimposition Completed Scanning 06/18/2019 79961 ECG Monitor/Recording W/Visual Superimposition Completed Scanning 06/15/2019 33795 EKG Tracing & Interpretation Completed 07/18/2018 007995269 Diabetic Retinal Eye Exam Completed 09/09/2017 401255354 Diabetic Retinal Eye Exam Completed 2016 037204953 Diabetic Retinal Eye Exam Completed 09/08/2015 884104847 Diabetic Retinal Eye Exam Completed 08/05/2014 361019750 Diabetic Retinal Eye Exam Completed 01/02/2014 22914878 Colonoscopy Completed 07/16/2013 220634817 Diabetic Retinal Eye Exam Completed 04/15/2013 264547519 Diabetic Retinal Eye Exam Completed 04/04/2012 603458631 Diabetic Retinal Eye Exam Completed 10/01/2003 72942322 Colonoscopy Completed Medical Devices Description No Information Available Encounters Type Date Location Provider Dx Diagnosis Office Visit 08/17/2019 [facility] G47.33 Obstructive sleep 1:00p [facility] Joe apnea (adult) 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 I49.3 Ventricular 4:20p Cardiology Melissa Woo premature depolarization I48.91 Unspecified atrial fibrillation I77.810 Thoracic aortic ectasia I48.21 Permanent atrial fibrillation I10 Essential (primary) hypertension E78.5 Hyperlipidemia, unspecified E66.9 Obesity, unspecified Office Visit 06/28/2019 2:20p [facility] Agatha I48.21 Permanent atrial Thuman, FOOD SERVICE fibrillation I10 Essential (primary) hypertension E78.5 Hyperlipidemia, unspecified I77.819 Aortic ectasia, unspecified site I49.3 Ventricular premature depolarization Office Visit 06/15/2019 2:00p [facility] Agatha I48.21 Permanent atrial Thuman, FOOD SERVICE fibrillation R53.83 Other fatigue I77.819 Aortic ectasia, unspecified site I27.20 Pulmonary hypertension, unspecified Assessments Date Code Description Provider 08/17/2019 G47.33 Obstructive sleep apnea (adult) Dahiana Joe NP (pediatric) 08/17/2019 I49.9 Cardiac arrhythmia, unspecified Dahiana Joe NP 08/17/2019 E66.9 Obesity, unspecified Dahiana Joe NP 08/17/2019 Z68.36 Body mass index (BMI) 36.0-36.9, adult Dahiana Joe NP 07/30/2019 G47.9 Sleep disorder, unspecified Maribel Mclain MD 07/30/2019 G47.33 Obstructive sleep apnea (adult) Maribel Mclain MD (pediatric) 07/25/2019 I49.3 Ventricular premature depolarization Katharina Woo M.D. 07/25/2019 I48.91 Unspecified atrial fibrillation Katharina Woo M.D. 07/25/2019 I77.810 Thoracic aortic sachiasia Katharina Woo M.D. 07/25/2019 I48.21 Permanent atrial [...] Woo M.D. 07/16/2019 I48.21 Permanent atrial fibrillation [place] [facility] Schedule 07/16/2019 I10 Essential (primary) hypertension Katharina Woo M.D. 07/16/2019 I10 Essential (primary) hypertension [place] [facility] Schedule 07/16/2019 I77.819 Aortic ectasia, unspecified site Katharina Woo M.D. 07/16/2019 I77.819 Aortic ectasia, unspecified site [place] [facility] Schedule 06/28/2019 I48.21 Permanent atrial fibrillation Agatha Thuman, FOOD SERVICE 06/28/2019 I10 Essential (primary) hypertension Agatha Thuman, FOOD SERVICE 06/28/2019 E78.5 Hyperlipidemia, unspecified Agatha Thuman, FOOD SERVICE 06/28/2019 I77.819 Aortic ectasia, unspecified site Agatha Thuman, FOOD SERVICE 06/28/2019 I49.3 [facility]ricular [facility] 06/19/2019 I48.21 Permanent atrial fibrillation Katharina Woo M.D. 06/19/2019 I49.3 Ventricular premature depolarization Kathairna Woo M.D. 06/18/2019 I48.21 Permanent atrial fibrillation Katharina Woo M.D. 06/18/2019 I48.21 Permanent atrial fibrillation Nurse Visit cc 06/18/2019 I49.3 Ventricular premature depolarization Katharina Woo M.D. 06/18/2019 I49.3 Ventricular premature depolarization Nurse Visit cc 06/15/2019 I48.21 Permanent atrial fibrillation [place] M.D. 06/15/2019 I48.21 Permanent atrial fibrillation Agatha Damon, FOOD SERVICE 06/15/2019 I49.3 Ventricular premature depolarization [place] M.D. 06/15/2019 R53.83 Other fatigue Agatha Thuman, FOOD SERVICE 06/15/2019 R94.31 Abnormal electrocardiogram [ECG] [EKG] [place] M.D. 06/15/2019 I77.819 Aortic ectasia, [facility] 06/15/2019 I27.20 Pulmonary hypertension, unspecified Agatha Jose [...] NP at [facility]09/05/2019 10:30 am - Nurse Visit cc at [facility] Zvrohypfll54/21/2020 12:00 pm - Nurse Visit cc at [facility] Yloyvmciou24/31/ 2020 10:40 am - Germaine Rich MD at [facility] Internal Medicine - Ccmob08/17/2019 - Dahiana Joe NPG47.33 Obstructive sleep apnea (adult) (pediatric)Follow up:6-8 weeks ([facility])Recommendations:You are being set up with CPAP for your sleep apnea through [facility] . 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 If insurance does not cover [...] please call the [facility] Center at [phone] If you have any sleepiness while driving you MUST avoid operating a vehicle or machinery. If you feel tired while driving, mold puller and take a nap or switch drivers. If you know you are sleepy and need to go somewhere, arrange for a ride or use public transportation. It is very important to not risk your safety or the safety of others.I49.9 Cardiac arrhythmia, eevqjuqmdcxJ62.9 Obesity, hljarjlmecmU19.36 Body mass index (BMI) 36.0-36.9, adult Functional Status Description No Information Available Mental Status Description No Information Available Referrals Refer to Reason for Referral Status Appt Date Matteo Perkins MD Sent [address] [place] [address] [phone] Maribel Mclain MD Sent 07/30/[address] [place] [address] [phone]
--- NOTE | 2019-08-24 11:35 | ED ---
Lower Extremity - HPI Summary HPI Summary: 63-year-old male presents with right ankle pain. States that he denies any injury. No numbness or tingling. He is diabetic. Denies a rash. No fevers or chills. He has history of gout but never in this location. States he has never had this before. Hasn't taking anything for his pain. - History of Current Complaint Chief Complaint: EDExtremityLower Stated Complaint: RIGHT ANKLE INJURY PER PT Time Seen by Provider: 08/24/19 11:15 Pain Intensity: 6 - Allergies/Home Medications Allergies/Adverse Reactions: Allergies Allergy/AdvReac Type Severity Reaction Status Date / Time bee venom protein (honey bee) Allergy Swelling Verified 11/20/18 19:00 celecoxib Allergy Nausea Verified 11/20/18 19:00 lithium Allergy Hives Verified 11/20/18 19:00 metoprolol Allergy Diarrhea Verified 08/24/19 11:07 promethazine Allergy See Comment Verified 11/20/18 19:00 rivaroxaban [From Xarelto] Allergy See Comment Verified 11/20/18 19:00 Home Medications: Home Medications Citalopram TAB* [Celexa TAB*] 40 mg PO DAILY 05/10/12 [History Confirmed ] Gabapentin CAP(*) [Neurontin 300 CAP(*)] 300 mg PO QID 05/10/12 [History Confirmed 08/24/19] Omeprazole CAP (NF) [Prilosec CAP* 20 MG] 20 mg PO DAILY 05/10/12 [History Confirmed 08/24/19] Tamsulosin CAP* [Flomax CAP*] 0.4 mg PO DAILY 05/10/12 [History Confirmed ] amLODIPine TAB* [Norvasc 5 mg TAB*] 5 mg PO DAILY 12/28/12 [History Confirmed ] Melatonin 10 mg PO BEDTIME PRN 01/25/14 [History Confirmed 08/24/19] Aspirin 81 mg CHEW TAB* 81 mg PO DAILY 06/15/14 [History Confirmed 08/24/19] Docusate CAP* [Colace Cap*] 200 mg PO BEDTIME PRN 06/15/14 [History Confirmed ] Lovastatin(NF) [Mevacor(NF)] 20 mg PO BEDTIME 04/21/15 [History Confirmed ] Multivitamins/Minerals TAB* [Theragran/minerals TAB*] 1 tab PO DAILY 06/16/15 [ History Confirmed 08/24/19] Fluticasone Furoate ELLIPTA(NF [Arnuity ELLIPTA (NF)] 1 puff INH DAILY 08/09/18 [History Confirmed 08/24/19] Hydrocodone/Acetaminophen [[place]jo 7.5-325 Tablet] 2 cap PO Q8HR PRN 08/09/18 [ History Confirmed 08/24/19] Pyridoxine TAB* [Vitamin B6 TAB*] 100 mg PO DAILY 08/09/18 [History Confirmed ] Albuterol HFA INHALER* [Ventolin HFA Inhaler*] 2 puff INH Q4H PRN 08/24/19 [ History Confirmed 08/24/19] Colchicine* [Colcrys*] 0.6 mg PO DAILY #9 tab 08/24/19 [Rx] Colchicine* [Colcrys*] 0.6 mg PO DAILY PRN 08/24/19 [History Confirmed 08/24/19] Losartan/Hydrochlorothiazide [Losartan Potassium/Hydroc 50-12.5 mg] 1 tab PO DAILY 08/24/19 [History Confirmed 08/24/19] Mometasone NASAL (NF) [Nasonex (NF)] 1 spray BOTH NARES DAILY PRN 08/24/19 [ History Confirmed 08/24/19] dilTIAZem HCl [Cardizem 120 MG TAB] 120 mg PO DAILY 08/24/19 [History Confirmed 08/24/19] diphenhydrAMINE HCl [Benadryl Allergy 25 MG CAP] 25 mg PO DAILY PRN 08/24/19 [ History Confirmed 08/24/19] PMH/Surg Hx/FS Hx/Imm Hx Endocrine/Hematology History: Reports: Hx Diabetes - TYPE II- NO MEDICATION FOR Cardiovascular History: Reports: Hx Angina, Hx Atrial Fibrillation, Hx Coronary Artery Disease, Hx Hypercholesterolemia, Hx Hypertension - ON MEDICATION FOR, Other Cardiovascular Problems/Disorders - ATRIAL FIBRILLATION-GUN[employer]S MATE M . DR. PARR Respiratory History: Reports: Hx Asthma - PRN INHALER Denies: Hx Chronic Obstructive Pulmonary Disease (COPD) GI History: Reports: Hx Gastroesophageal Reflux Disease - ON MEDICATION FOR Denies: Other GI Disorders History: Reports: Hx Benign Prostatic Hyperplasia, Hx Chronic Renal Failure, Hx Kidney Stones - LEFT 04/2015 Musculoskeletal History: Reports: Hx Arthritis - LOWER BACK, HIPS, HANDS, KNEES Denies: Other Musculoskeletal History Sensory History: Reports: Hx Cataracts - SKY, Hx Contacts or Glasses - GLASSES Denies: Hx Hearing Aid Opthamlomology History: Reports: Hx Cataracts - SKY, Hx Contacts or Glasses - GLASSES Neurological History: Reports: Hx Migraine - A CHILD, Other Neuro Impairments /Disorders - PERIPHERAL NEUROPATHY FEET AND HANDS Psychiatric History: Reports: Hx Anxiety, Hx Depression - HX OF STATES UNDER CONTROL, Hx Bipolar Disorder - Surgical History Surgery Procedure, Year, and Place: R inguinal hernia repair. cataract surgery when patient A YOUNG CHILD. KIDNEY STONE BLASTING[place]04/2015[place] [place] UMBILICAL HERNIA [facility]-74/2015 Hx Anesthesia Reactions: No Infectious Disease History: No Infectious Disease History: Denies: Traveled Outside the [place] in Last 30 Days - Family History Known Family History: Positive: Diabetes Negative: Renal Disease Family History: No FHx of malignant hyperthermia. No FHx of anesthesia reaction - Social History Alcohol Use: None Hx Substance Use: No Substance Use Type: Reports: None Hx Tobacco Use: Yes Smoking Status (MU): Former Smoker Type: Cigarettes Amount Used/How Often: STATES ONLY SMOKED FOR ABOUT 1 MONTH Length of Time of Smoking/Using Tobacco: 1 MONTH Have You Smoked in the Last Year: No Review of Systems Negative: Fever Negative: Chest Pain Negative: Shortness Of Breath Positive: Myalgia - right ankle pain All Other Systems Reviewed And Are Negative: Yes Physical Exam Triage Information Reviewed: Yes Vital Signs On Initial Exam: Initial Vitals Temp Pulse Resp BP Pulse Ox 97.1 F 67 18 139/67 98 08/24/19 11:03 08/24/19 11:03 08/24/19 11:03 08/24/19 11:03 08/24/19 11:03 Vital Signs Reviewed: Yes Appearance: Positive: Well-Appearing Skin: Positive: Warm, Dry Head/Face: Positive: Normal Head/Face Inspection Eyes: Positive: Normal, Conjunctiva Clear ENT: Positive: Pharynx normal Respiratory/Lung Sounds: Positive: Clear to Auscultation, Breath Sounds Present Cardiovascular: Positive: Normal, RRR Musculoskeletal: Positive: Limited @ - right ankle, Other - tenderness right ankle medial, good pulses, no erthyema Neurological: Positive: Normal Psychiatric: Positive: Normal Procedures - Sedation Patient Received Moderate/Deep Sedation with Procedure: No Diagnostics - Vital Signs Vital Signs Temp Pulse Resp BP Pulse Ox 08/24/19 11:03 97.1 F 67 18 139/67 98 - Laboratory Lab Statement: Any lab studies that have been ordered have been reviewed, and results considered in the medical decision making process. - Radiology ankle Radiology Interpretation Completed By: Radiologist Summary of Radiographic Findings: REPORT AND IMPRESSION: #. Congruent ankle mortise and normal articular alignment throughout the field of view. #. Negative for fracture or osteochondral lesion. #. Mild osteophytosis at the talocrural joint. Negative for significant joint space narrowing. Suggestion of small talocrural joint effusion. #. Nonfocal soft tissue swelling. Peripheral vascular calcifications. Lower Extremity Course/Dx - Course Course Of Treatment: 63-year-old male presents with right ankle pain. States that he denies any injury. No numbness or tingling. He is diabetic. Denies a rash. No fevers or chills. He has history of gout but never in this location. States he has never had this before. Hasn't taking anything for his pain. On exam tenderness over medial malleolus of her ankle. Neurovascular intact. X -ray shows no fracture. discussed could be gout vs ankle sprain. gave hailee. patient has been on colchinine before and it worked well so will place on for potential gout. will treat with hailee and tyenlol. told follow up with primary. patient understand and agrees with plan. - Diagnoses Differential Diagnosis/HQI/PQRI: Positive: Fracture (Closed), Gout, Sprain, Strain Provider Diagnoses: Right ankle pain Discharge ED - Sign-Out/Discharge Documenting (check all that apply): Patient Departure - Discharge Plan Condition: Good Disposition: HOME Prescriptions: Colchicine* [Colcrys*] 0.6 mg PO DAILY #9 tab Referrals: Germaine Rich MD [Primary Care Provider] - Additional Instructions: will treat as potential gout take two more doses today, then once a day until symptoms resolve apply ice take tyenlol every 6 hours for pain Follow up with primary within 5 days Return to ED if develop any new or worsening symptoms - Billing Disposition and Condition Condition: GOOD Disposition: Home - Attestation Statements Provider Attestation: I was available for consultation for this patient. I did not evaluate the patient or participate in any medical decision making or disposition decisions unless I am specifically named in the chart as having consulted on the patient. If I have consulted on the patient, please see my own ED note on the patient encounter. Lesley Vegas MD
[2019-08-24] MEDS ORDERED: Acetaminophen TAB* 325 MG PO ONE (11:51)
[2019-08-24] MEDS ORDERED: Colchicine* 0.6 MG TAB PO ONE (12:28)
[2019-08-24 12:48] VITALS: BP 141/82
== END 2019-08-24 12:47 | disposition home or self-care (01) ==
LOC: ED 11:02
DX: M25.571 Pain in right ankle and joints of right foot (principal); E11.22 Type 2 diabetes mellitus with diabetic chronic kidney disease; I12.9 Hypertensive chronic kidney disease with stage 1 through stage 4 chronic kidney disease, or unspecified chronic kidney disease; N18.9 Chronic kidney disease, unspecified; I48.91 Unspecified atrial fibrillation; I25.10 Atherosclerotic heart disease of native coronary artery without angina pectoris; E78.00 Pure hypercholesterolemia, unspecified; J45.909 Unspecified asthma, uncomplicated; K21.9 Gastro-esophageal reflux disease without esophagitis; N40.0 Benign prostatic hyperplasia without lower urinary tract symptoms; F41.9 Anxiety disorder, unspecified; F31.9 Bipolar disorder, unspecified; Z87.442 Personal history of urinary calculi; Z87.891 Personal history of nicotine dependence; Z79.82 Long term (current) use of aspirin; Z79.899 Other long term (current) drug therapy
CPT/HCPCS: 99282; A9270-GY